=== PATIENT | male | born 1965 | race Two or more races ===

== ENCOUNTER 2017-11-18 15:55 | Inpatient (IN) | payer SELFPAY ==
[2017-11-18] VITALS (14 sets, daily range): BP systolic 110–143; BP diastolic 21–59
[~2017-11-18] VITALS: Ht 165.1 cm; Wt 97.1 kg
[2017-11-18] MEDS ORDERED: Solu-MEDROL 125mg Inj IVP ONE (17:45)
[2017-11-18] MEDS: Ipratropium 0.02% Inh Soln 2.5ml UD HHN SCH ×3 (17:48→18:15)
[2017-11-18] MEDS: Albuterol ud Inhalation HHN SCH ×2 (17:48→18:00)
[2017-11-18] MEDS ORDERED: cefTRIAXone 1 GM in NS 55 ML IVPB ONE (18:00)
[2017-11-18] MEDS ORDERED: Nitroglycerin 50mg/250ml btl 250 ML IV SCH (18:00)
[2017-11-18] MEDS ORDERED: Azithromycin 500 MG in NS 275 ML IV ONE (18:00)
[2017-11-18 18:23] LABS: HEMATOCRIT 17.6 % (42.0-52.0); MEAN CORPUSCULAR VOLUME 80 FL (80-99); PLATELET COUNT 119 K/UL (150-450); RED BLOOD COUNT 2.21 M/UL (4.70-6.10); RED CELL DISTRIBUTION WIDTH 23.5 % (11.6-14.8); WHITE BLOOD COUNT 4.8 K/UL (4.8-10.8)
[2017-11-18 18:24] LABS: HEMOGLOBIN 4.7 G/DL (14.2-18.0)
[2017-11-18] MEDS ORDERED: Azithromycin 500mg Inj IV ONE (18:35)
[2017-11-18 18:38] LABS: ANION GAP 26 mmol/L (5-15); BLOOD UREA NITROGEN 26 mg/dL (7-18); CHLORIDE 103 MMOL/L (98-107); CREATININE 2.4 MG/DL (0.55-1.30); POTASSIUM 3.5 MMOL/L (3.5-5.1); SODIUM 138 MMOL/L (136-145)
[2017-11-18 18:41] LABS: CARBON DIOXIDE 9 MMOL/L (21-32)
[2017-11-18 18:52] LABS: ALANINE AMINOTRANSFERASE 42 U/L (12-78); ALBUMIN 1.9 G/DL (3.4-5.0); ALBUMIN/GLOBULIN RATIO 0.4 (1.0-2.7); ALKALINE PHOSPHATASE 57 U/L (46-116); ASPARTATE AMINO TRANSFERASE 109 U/L (15-37); BILIRUBIN,TOTAL 2.4 MG/DL (0.2-1.0); CKMB 20.2 NG/ML (0.0-3.6); CREATINE KINASE 491 U/L (26-308)
[2017-11-18 18:53] LABS: BILIRUBIN,DIRECT 1.5 MG/DL (0.0-0.3)
[2017-11-18] MEDS ORDERED: Etomidate 40mg/20ml Inj IV ONE (19:45)
[2017-11-18] MEDS ORDERED: Zemuron 50mg/5ml Inj IV ONE (19:45)
--- NOTE | 2017-11-18 19:50 | Emergency Room Report ---
History of Present Illness General Chief Complaint: Dyspnea/Respdistress Source: Patient Present Illness HPI 52-year-old male, no significant past medical history, presents with shortness of breath for the last 3 weeks. Patient is very poor historian, only states that it has been hard to breathe. also states he has intermittent abd pain but also says pain all over. States he sutured a long time ago. Denies having any respiratory issues such as asthma or COPD. No other history able to be obtained denies black or bloody stool. denies vomiting Allergies: Coded Allergies: No Known Allergies (Unverified , 11/18/17) Patient History Past Medical History: see triage record Past Surgical History: none Pertinent Family History: none Reviewed Nursing Documentation: PMH: Agreed, PSxH: Agreed Nursing Documentation-PMH Past Medical History: No Stated History Review of Systems All Other Systems: negative except mentioned in HPI Physical Exam Vital Signs Date Time Temp Pulse Resp B/P (MAP) Pulse Ox O2 Delivery O2 Flow Rate FiO2 11/18/17 17:10 98.2 122 24 120/52 91 Room Air 11/18/17 17:44 100 Sp02 EP Interpretation: reviewed, normal General Appearance: alert, moderate distress, other - poor historian. resp distress, appears pale, Chronically Ill Head: normocephalic, atraumatic Eyes: bilateral eye normal inspection, bilateral eye PERRL, bilateral eye EOMI ENT: normal ENT inspection, normal pharynx, normal voice, moist mucus membranes Neck: normal inspection, full range of motion, supple Respiratory: other - wheezing b/l with coarse b/s. worse L side Cardiovascular #1: tachycardia, edema Cardiovascular #2: 2+ radial (R), 2+ radial (L) Gastrointestinal: normal inspection, non tender, soft, non-distended, no guarding Rectal: other - BROWN stool Musculoskeletal: normal inspection, back normal, normal range of motion, non- tender Neurologic: normal inspection, alert, oriented x3, responsive, motor strength/ tone normal, sensory intact, normal gait, speech normal Psychiatric: normal inspection, judgement/insight normal, memory normal, other - poor historian Skin: warm/dry, well hydrated, normal turgor, pallor Procedures Critical Care Time Critical Care Time 40 minutes of CC time 52-year-old male, severe respiratory distress VS: tachypneic, tachycardic PLAN: IV access, labs, lactate, troponin, Blood/Urine Cx, Abx, IVF, intubation, CT scan of chest abdomen pelvis Anticipate admission to Tele vs. [facility] CC time also includes review of labs, review of EMR, discussion with family and paperwork from SNF, d/w hospitalist CC could include dosing of pressors, additional Abx CC time does not include procedures Intubation Intubation : Consent: Emergent Intubation Method: orotracheal Tube Size (cm): 7.5 Medications: Etomidate, Rocuronium Breath Sounds after Intubation: equal Intubation Complications: no complications Post Intubation Xray: Yes Attempts: One Patient Tolerated: Well Complications: None Medical Decision Making Diagnostic Impression: Primary Impression: Acute respiratory failure with hypoxia Additional Impressions: Lactic acid acidosis Severe anemia Pleural effusion Bilateral pneumonia Severe sepsis ER Course 52-year-old male, shortness of breath the last 3 weeks, appears to be in severe respiratory distress currently DDX: Pneumonia, viral syndrome, asthma or COPD, ACS Plan: Obtain labs, ua, EKG, CXR ER course: Patient continues to be in severe respiratory distress despite being on BiPAP Lactate noted to be 16 - IVF started Hemoglobin noted 4.7. Patient denies having any vomiting, no black or bloody stools. Rectal exam is unremarkable. Transfuse 2 units PRBC starting the emergency room Left-sided whiteout on x-ray, Loculated pleural effusion on ultrasound Chart to perform CT however patient not able to tolerate lying flat Worsening shortness of breath, patient intubated around 7:30 PM Propofol drip started Sepsis Re-examination Time: 9 PM VS: Temp 98 HR 117 BP 118/80 RR 25 CVS tachycardic Respiratory: Coarse breath sounds bilaterally Peripheral pulses: 2+ radial Capillary refill: <2 seconds Skin exam: warm, dry, no rash, not mottled Disposition: Patient is to be admitted to ICU D/W hospitalist Dr Lemus Please note that this Emergency Department Report was dictated using [employer] or barges loader technology software, occasionally this can lead to erroneous entry secondary to interpretation by the dictation equipment. EKG Diagnostic Results EP Interpretation: Yes Rate: Tachycardic Rhythm: NSR ST Segments: T-wave inversions noted in the lateral leads ASA given to patient: No Rhythm Strip EP Interpretation: Yes Rate: 100 Rhythm: NSR, no PVCs, no ectopy Chest X-ray CXR: Ordered: Yes 1 view Indication: sob EP interpretation: Yes Interpretation: white out L lung Impression: L lung pleural effusion Electronically signed by Ember Weinberg MD Laboratory Tests Test 11/18/17 17:25 11/18/17 17:40 11/18/17 20:05 11/18/17 20:40 Arterial Blood pH 7.206 (7.350-7.450) 6.820 (7.350-7.450) Arterial Blood Partial Pressure CO2 23.2 mmHg (35.0-45.0) *L 76.7 mmHg (35.0-45.0) *H Arterial Blood Partial Pressure O2 210.9 mmHg (75.0-100.0) H 75.5 mmHg (75.0-100.0) Arterial Blood HCO3 9.0 mmol/L (22.0-26.0) L 12.2 mmol/L (22.0-26.0) L Arterial Blood Oxygen Saturation 99.4 % (92.0-98.0) H 77.8 % (92.0-98.0) L Arterial Blood Base Excess -17.4 -19.9 Sigifredo Test Positive Positive White Blood Count 4.8 K/UL (4.8-10.8) Red Blood Count 2.21 M/UL (4.70-6.10) L Hemoglobin 4.7 G/DL (14.2-18.0) *L Hematocrit 17.6 % (42.0-52.0) L Mean Corpuscular Volume 80 FL (80-99) Mean Corpuscular Hemoglobin 21.3 PG (27.0-31.0) L Mean Corpuscular Hemoglobin Concent 26.8 G/DL (32.0-36.0) L Red Cell Distribution Width 23.5 % (11.6-14.8) H Platelet Count 119 K/UL (150-450) L Mean Platelet Volume 8.3 FL (6.5-10.1) Neutrophils (%) (Auto) % (45.0-75.0) Lymphocytes (%) (Auto) % (20.0-45.0) Monocytes (%) (Auto) % (1.0-10.0) Eosinophils (%) (Auto) % (0.0-3.0) Basophils (%) (Auto) % (0.0-2.0) Differential Total Cells Counted 100 Neutrophils % (Manual) 39 % (45-75) L Lymphocytes % (Manual) 17 % (20-45) L Monocytes % (Manual) 11 % (1-10) H Eosinophils % (Manual) 0 % (0-3) Basophils % (Manual) 0 % (0-2) Metamyelocytes % 1 % (0-0) H Band Neutrophils 32 % (0-8) H Nucleated Red Blood Cells 28 /100 WBC Platelet Estimate Decreased L Platelet Morphology Normal Polychromasia 1+ Hypochromasia 3+ Anisocytosis 3+ Microcytosis 2+ Prothrombin Time 22.1 SEC (9.30-11.50) H Prothrombin Time INR 2.1 (0.9-1.1) H PTT 46 SEC (23-33) H Sodium Level 138 MMOL/L (136-145) Potassium Level 3.5 MMOL/L (3.5-5.1) Chloride Level 103 MMOL/L (98-107) Carbon Dioxide Level 9 MMOL/L (21-32) *L Anion Gap 26 mmol/L (5-15) H Blood Urea Nitrogen 26 mg/dL (7-18) H Creatinine 2.4 MG/DL (0.55-1.30) H Estimate Glomerular Filtration Rate 28.7 mL/min (>60) Glucose Level 43 MG/DL (74-106) L Lactic Acid Level 16.60 mmol/L (0.66-2.22) H Pending Calcium Level 7.0 MG/DL (8.5-10.1) L Total Bilirubin 2.4 MG/DL (0.2-1.0) H Direct Bilirubin 1.5 MG/DL (0.0-0.3) H Aspartate Amino Transferase (AST) 109 U/L (15-37) H Alanine Aminotransferase (ALT) 42 U/L (12-78) Alkaline Phosphatase 57 U/L (46-116) Total Creatine Kinase 491 U/L (26-308) H Creatine Kinase MB 20.2 NG/ML (0.0-3.6) H Creatine Kinase MB Relative Index 4.1 Troponin I 0.078 ng/mL (0.000-0.056) Pro-B-Type Natriuretic Peptide 37855 pg/mL (0-125) H Total Protein 7.1 G/DL (6.4-8.2) Albumin 1.9 G/DL (3.4-5.0) L Globulin 5.2 g/dL Albumin/Globulin Ratio 0.4 (1.0-2.7) L Triglycerides Level 102 MG/DL (30-150) CT/MRI/US Diagnostic Results CT/MRI/US Diagnostic Results : Imaging Test Ordered: CT Chest abdo pelvis Impression CT CHEST Without Contrast: Evaluation is limited secondary to motion artifact. Diffuse areas of infiltrate and consolidation are seen in the lungs, left greater than right. Small bilateral pleural effusions, right greater than left. Endotracheal tube with tip approximately 3.5 cm above the rossana. Cardiomegaly. Degenerative changes of the thoracic spine. CT ABDOMEN & PELVIS Without Contrast: Evaluation of the colon is limited secondary to poor distention. Some wall thickening is suspected in the colon. Colitis should be considered. Nonspecific infiltration of the mesenteric fat. No evidence for significant bowel loop dilation to suggest an obstructive process. The appendix is questionably visualized in the right lower quadrant and is unremarkable. Small to moderate amount of ascites. No evidence for free intraperitoneal gas. Question of some nodularity of the liver surface which may be related to cirrhosis. Some thickening and nodularity suspected of the adrenal glands. Some increased density in the region of the renal medullary pyramids which may be related to medullary nephrocalcinosis. No evidence for hydronephrosis or ureteral stone. The intra-abdominal organs are otherwise grossly unremarkable for a noncontrast CT. Nonspecific subcutaneous edema and fluid, left greater than right. Degenerative changes of the lumbar spine. Last Vital Signs Date Time Temp Pulse Resp B/P (MAP) Pulse Ox O2 Delivery O2 Flow Rate FiO2 11/18/17 19:00 118 40 100 11/18/17 19:00 98.2 120/52 100 11/18/17 18:05 Facial Disposition: ADMITTED INPATIENT Condition: Critical Referrals: NOT CHOSEN [place]/,REFERRING (PCP) Ember Weinberg M.D. Nov 18, 2017 19:49
[2017-11-18 20:56] LABS: INR 2.1 (0.9-1.1)
[2017-11-18 22:48] LABS: APPEARANCE,URINE VERY CLOUDY; BILIRUBIN, URINE NEGATIVE (NEGATIVE); COLOR,URINE BROWN; GLUCOSE, URINE (UA) NEGATIVE (NEGATIVE); KETONES,URINE 1+ (NEGATIVE); LEUKOCYTE ESTERASE ,URINE 1+ (NEGATIVE); NITRITE,URINE POSITIVE (NEGATIVE); PH,URINE 5 (4.5-8.0); PROTEIN,URINE 3+ (NEGATIVE); UROBILINOGEN,URINE NORMAL MG/DL (0.0-1.0)
[2017-11-18] MEDS ORDERED: Miralax 17gm pkt ORAL PRN (23:00)
[2017-11-18] MEDS ORDERED: Morphine Sulfate 4mg/ml Inj IVP PRN (23:00)
[2017-11-19] VITALS (32 sets, daily range): BP systolic 92–114; BP diastolic 30–46
[2017-11-19] MEDS ORDERED: UNOBMED (01:04)
[2017-11-19] MEDS ORDERED: D5NS 1,000 ML IV SCH (03:15)
[2017-11-19] MEDS ORDERED: Ertapenem 1 GM in NS 55 ML IV SCH ×2 (04:00→08:00)
[2017-11-19 04:25] LABS: HEMATOCRIT 23.7 % (42.0-52.0); MEAN CORPUSCULAR VOLUME 81 FL (80-99); PLATELET COUNT 111 K/UL (150-450); RED BLOOD COUNT 2.92 M/UL (4.70-6.10); RED CELL DISTRIBUTION WIDTH 22.1 % (11.6-14.8); WHITE BLOOD COUNT 5.6 K/UL (4.8-10.8)
[2017-11-19 04:31] LABS: HEMOGLOBIN 6.8 G/DL (14.2-18.0)
[2017-11-19 04:44] LABS: ALANINE AMINOTRANSFERASE 42 U/L (12-78); ALBUMIN 1.6 G/DL (3.4-5.0); ALBUMIN/GLOBULIN RATIO 0.3 (1.0-2.7); ALKALINE PHOSPHATASE 51 U/L (46-116); ANION GAP 18 mmol/L (5-15); ASPARTATE AMINO TRANSFERASE 148 U/L (15-37); BILIRUBIN,DIRECT 1.6 MG/DL (0.0-0.3); BILIRUBIN,TOTAL 2.5 MG/DL (0.2-1.0); BLOOD UREA NITROGEN 29 mg/dL (7-18); CALCIUM 6.7 MG/DL (8.5-10.1); CARBON DIOXIDE 15 MMOL/L (21-32); CHLORIDE 103 MMOL/L (98-107); CREATININE 2.8 MG/DL (0.55-1.30); POTASSIUM 3.8 MMOL/L (3.5-5.1); SODIUM 136 MMOL/L (136-145)
[2017-11-19] MEDS ORDERED: Amikacin 1,000 MG in NS 110 ML IV SCH (05:00)
[2017-11-19] MEDS ORDERED: Amikacin 500mg/2mL Inj ONE ×2 (05:07→05:10)
[2017-11-19] MEDS ORDERED: Sodium Bicarbonate 50ml Carp IV ONE (08:00)
[2017-11-19] MEDS ORDERED: Vancomycin 1.5 GM/D5W 250ML IVPB ONE (08:00)
--- NOTE | 2017-11-19 08:44 | Diagnostic Imaging Report ---
Indication: Shortness of breath Technique: One view of the chest Comparison: none Findings: There is dense consolidation throughout most of the left lung. Patchy and or nodular opacities are also seen in the right upper lobe. There is probably a small amount of pleural fluid on the left. The left heart border is obscured, heart size probably normal Impression: Consolidation of most of the left lung, most likely represents pneumonia. Opacities in the right upper lobe, could represent focal patchy infiltrates there is a soft tissue nodules. Further follow-up recommended
[2017-11-19] MEDS: Pantoprazole Inj IVP SCH (09:00)
[2017-11-19] MEDS: Heparin 5000 units/ml inj SUBQ SCH ×2 (09:00→21:00)
--- NOTE | 2017-11-19 09:02 | Diagnostic Imaging Report ---
Indication: Status post intubation Technique: One view of the chest Comparison: 2 hours earlier Findings: There is increasing dense consolidation of the left lung, with only minimal aerated lung at the left apex now present. Patchy infiltrates in the right lung have also increased markedly in size and extent. Interim endotracheal intubation, endotracheal tube tip in good position approximately 5 cm above the rossana. Impression: Satisfactory endotracheal intubation Rapid progression of pneumonia bilaterally over 2 hours, as described
--- NOTE | 2017-11-19 09:20 | Diagnostic Imaging Report ---
INDICATION: Shortness of breath, pain TECHNIQUE: No oral or IV contrast utilized, reason not stated. Spiral acquisitions obtained through the chest, abdomen, and pelvis. Multiplanar reconstructions were generated. Total dose length product 994.37 mGycm. CTDIvol(s) 14.76 mGy. Radiation dose was minimized using automated exposure control COMPARISON: none FINDINGS Chest: There is dense consolidation of most of the left upper lobe and all of the left lower lobe. The consolidation is the most dense within the lower lobe, where there is probably also a component of atelectasis. There is trace pleural fluid on the left. There is combination of patchy groundglass opacity and dense consolidation involving much of the right upper lobe. There is some atelectasis involving the right middle lobe. There is dense consolidation and atelectasis of the posterior right lower lobe. There is a small to moderate right pleural effusion. There is an endotracheal tube in good position. The heart is borderline enlarged. No pericardial effusion. Prominent but not frankly enlarged mediastinal lymph nodes are demonstrated. No karen hilar or mediastinal mass or adenopathy demonstrated. There is diffuse mild edema of the subcutaneous fat. No axillary or chest wall mass or adenopathy. The bones are unremarkable except for degenerative thoracic spondylosis changes. Abdomen and pelvis: There is diffuse edema of the subcutaneous fat. There is more extensive edema of the mesenteric fat. There is a small amount of ascites fluid. There is equivocal mild wall thickening of the sigmoid, although this is probably artifact of under distention. No evidence of diverticulosis or diverticulitis. The appendix is equivocally demonstrated. No findings to suggest acute appendicitis are evident. No small bowel distention. No free intraperitoneal air. Lack of IV contrast limits assessment of the solid organs. The liver demonstrates possible surface nodularity, suggestive of cirrhotic change. The gallbladder wall is somewhat edematous, but the gallbladder itself is nondistended and there are no gallstones. No biliary ductal dilatation. Pancreas, spleen, adrenals, kidneys are unremarkable. No no mesenteric or retroperitoneal mass or adenopathy. No pelvic mass or adenopathy. The bones are unremarkable except for lower lumbar facet arthrosis Impression: Extensive dense parenchymal infiltrates bilaterally, left greater than right. Component of atelectasis of the lower lobes bilaterally as well. Findings are most suggestive of pneumonia, although pulmonary edema also a possibility Bilateral pleural effusions, right greater than left Cardiomegaly Satisfactory endotracheal intubation Ascites Evidence of anasarca, with, in addition to the ascites and pleural effusions, diffuse edema of the subcutaneous and mesenteric fat. Hepatic surface nodularity suggestive of cirrhosis Equivocal colonic wall thickening. Suspected artifact of under distention or possibly a manifestation of anasarca, but colitis is not excludable Degenerative spondylosis incidentally noted This agrees with the preliminary interpretation provided overnight by [facility]erad[facility] service. The CT scanner at [facility] is accredited by the [employer] and the scans are performed using protocols designed to limit radiation exposure to as low as reasonably achievable to attain images of sufficient resolution adequate for diagnostic evaluation.
--- NOTE | 2017-11-19 09:53 | Consultation ---
Consult Note Consult Note asked to eval for renal failure 52-year-old male, no significant past medical history, presents with shortness of breath for the last 3 weeks. Patient is very poor historian, only states that it has been hard to breathe. also states he has intermittent abd pain but also says pain all over. States he sutured a long time ago. Denies having any respiratory issues such as asthma or COPD. No other history able to be obtained denies black or bloody stool. denies vomiting Assessment/Plan Acute renal failure ? due to sepsis Acute respiratory failure with hypoxia Lactic acid acidosis Severe anemia Pleural effusion Bilateral pneumonia Severe sepsis Severe HypoAlbuminemai , 3+ Proteinuria Plaan: Hydrate Monitor renal parameters Avoid nephrotoxics as possible hemodynamic support cortisol level per orders SHERRY OLVERA Nov 19, 2017 09:53
--- NOTE | 2017-11-19 10:57 | Pulmonolgy Critical Care Note ---
Critical Care - Asmt/Plan Problems: (1) Acute respiratory failure with hypoxia (2) Severe sepsis (3) Severe anemia Respiratory: monitor respiratory rate, adjust FIO2 Cardiac: continue to monitor HR/BP Renal: F/U I&O, keep IV fluid Infectious Disease: check cultures, continue antibiotics Gastrointestinal: hold feedings Endocrine: monitor blood sugar Hematologic: monitor H/H Neurologic: PRN Ativan Affect: PRN ativan Prophylaxis: Heparin Disposition: keep in ICU Discussed with: nurses, consultants, case managerscentral supply manager - Objective Last 24 Hour Vital Signs Date Time Temp Pulse Resp B/P (MAP) Pulse Ox O2 Delivery O2 Flow Rate FiO2 11/19/17 10:31 113 32 100 11/19/17 10:00 108 26 98/35 90 Mechanical Ventilator 100 11/19/17 10:00 22 11/19/17 09:30 98.9 108 26 105/37 85 Mechanical Ventilator 100 11/19/17 09:07 107 28 100 11/19/17 09:00 22 11/19/17 09:00 108 26 103/34 90 Mechanical Ventilator 100 11/19/17 08:30 109 26 106/35 91 Mechanical Ventilator 100 11/19/17 08:00 20 11/19/17 08:00 99.0 105 28 114/42 90 Mechanical Ventilator 100 11/19/17 07:16 111 25 100 11/19/17 07:00 22 11/19/17 07:00 113 26 96/33 89 Mechanical Ventilator 100 11/19/17 06:00 111 22 103/32 91 Mechanical Ventilator 100 11/19/17 06:00 22 11/19/17 05:43 112 22 100 11/19/17 05:30 112 22 113/39 93 Mechanical Ventilator 100 11/19/17 05:21 100 11/19/17 05:00 22 11/19/17 05:00 98.1 113 22 105/38 92 Mechanical Ventilator 100 11/19/17 04:35 98.2 117 22 103/39 92 Mechanical Ventilator 100 11/19/17 04:30 113 11/19/17 04:30 117 22 103/39 92 Mechanical Ventilator 100 11/19/17 04:30 22 11/19/17 04:00 98.2 115 22 106/46 91 Mechanical Ventilator 100 11/19/17 04:00 22 11/19/17 03:30 22 11/19/17 03:29 116 22 106/42 91 Mechanical Ventilator 100 11/19/17 03:10 117 22 100 11/19/17 03:00 117 22 106/43 91 Mechanical Ventilator 100 11/19/17 03:00 22 11/19/17 02:30 115 22 96/46 91 Mechanical Ventilator 100 11/19/17 02:30 22 11/19/17 02:00 22 11/19/17 02:00 115 22 102/31 91 Mechanical Ventilator 100 11/19/17 01:45 116 22 96/30 92 Mechanical Ventilator 100 11/19/17 01:30 22 11/19/17 01:15 118 22 100/31 93 Mechanical Ventilator 100 11/19/17 01:12 118 22 100 11/19/17 01:00 22 11/19/17 00:45 117 22 109/32 93 Mechanical Ventilator 100 11/19/17 00:30 22 11/19/17 00:15 97.8 117 22 112/37 94 Mechanical Ventilator 11/19/17 00:00 22 11/19/17 00:00 118 22 106/30 94 Mechanical Ventilator 11/18/17 23:45 120 22 110/31 94 Mechanical Ventilator 11/18/17 23:30 118 22 110/29 93 Mechanical Ventilator 11/18/17 23:30 22 11/18/17 23:15 97.6 118 22 114/36 95 Mechanical Ventilator 11/18/17 23:00 115 22 117/21 94 Mechanical Ventilator 11/18/17 23:00 22 11/18/17 22:55 97.6 115 22 11/18/17 22:35 116 22 100 11/18/17 22:30 22 11/18/17 22:30 97.6 117 22 134/51 95 Mechanical Ventilator 11/18/17 22:25 100 11/18/17 22:15 116 22 134/51 95 Mechanical Ventilator 11/18/17 22:00 115 22 121/52 87 Mechanical Ventilator 11/18/17 22:00 22 11/18/17 21:30 20 11/18/17 21:30 98.2 116 18 122/53 92 Mechanical Ventilator 11/18/17 21:15 116 18 126/51 91 Mechanical Ventilator 11/18/17 21:05 98.5 116 16 11/18/17 21:00 98.5 116 16 126/49 91 Mechanical Ventilator 11/18/17 20:57 20 11/18/17 20:51 115 18 100 11/18/17 20:50 100 11/18/17 20:42 20 11/18/17 20:30 116 18 120/59 90 Mechanical Ventilator 11/18/17 20:27 16 11/18/17 20:15 121 16 137/50 94 Mechanical Ventilator 11/18/17 20:12 16 11/18/17 20:00 123 16 143/53 86 Mechanical Ventilator 11/18/17 19:57 16 11/18/17 19:49 125 16 100 11/18/17 19:45 16 11/18/17 19:35 100 11/18/17 19:00 118 40 100 11/18/17 19:00 98.2 118 40 120/52 100 100 11/18/17 18:05 118 40 100 Facial 100 11/18/17 18:00 118 37 100 Bi-pap 100 11/18/17 17:44 100 11/18/17 17:44 115 35 100 Bi-pap 100 11/18/17 17:10 98.2 122 24 120/52 91 Room Air Status: sedated Condition: critical HEENT: atraumatic Neck: full ROM Heart: HR/BP stable Abdomen: soft, active bowel sounds Accucheck: 100 Critical Care - Subjective ROS Limited/Unobtainable: Yes ICU Day: 2 Intubation Day: 2 Condition: critical EKG Rhythm: Sinus Rhythm FI02: 100 Vent Support Breath Rate: 20 Vent Support Mode: AC Vent Tidal Volume: 700 Sputum Amount: Small PEEP: 7.0 PIP: 39 Drips: propofol drip I&O: Intake and Output 11/18/17 11/19/17 19:00 07:00 Intake Total 0 ml 520.531 ml Output Total 165 ml Balance 0 ml 355.531 ml Intake Oral 0 ml IV Total 520.531 ml Output Urine Total 165 ml CXR: Et in good position ET-Tube: 7.5 ET Position: 21 Labs: Laboratory Tests Test 11/18/17 17:25 11/18/17 17:40 11/18/17 20:05 11/18/17 20:40 Arterial Blood pH 7.206 (7.350-7.450) 6.820 (7.350-7.450) Arterial Blood Partial Pressure CO2 23.2 mmHg (35.0-45.0) *L 76.7 mmHg (35.0-45.0) *H Arterial Blood Partial Pressure O2 210.9 mmHg (75.0-100.0) H 75.5 mmHg (75.0-100.0) Arterial Blood HCO3 9.0 mmol/L (22.0-26.0) L 12.2 mmol/L (22.0-26.0) L Arterial Blood Oxygen Saturation 99.4 % (92.0-98.0) H 77.8 % (92.0-98.0) L Arterial Blood Base Excess -17.4 -19.9 Sigifredo Test Positive Positive White Blood Count 4.8 K/UL (4.8-10.8) Red Blood Count 2.21 M/UL (4.70-6.10) L Hemoglobin 4.7 G/DL (14.2-18.0) *L Hematocrit 17.6 % (42.0-52.0) L Mean Corpuscular Volume 80 FL (80-99) Mean Corpuscular Hemoglobin 21.3 PG (27.0-31.0) L Mean Corpuscular Hemoglobin Concent 26.8 G/DL (32.0-36.0) L Red Cell Distribution Width 23.5 % (11.6-14.8) H Platelet Count 119 K/UL (150-450) L Mean Platelet Volume 8.3 FL (6.5-10.1) Neutrophils (%) (Auto) % (45.0-75.0) Lymphocytes (%) (Auto) % (20.0-45.0) Monocytes (%) (Auto) % (1.0-10.0) Eosinophils (%) (Auto) % (0.0-3.0) Basophils (%) (Auto) % (0.0-2.0) Differential Total Cells Counted 100 Neutrophils % (Manual) 39 % (45-75) L Lymphocytes % (Manual) 17 % (20-45) L Monocytes % (Manual) 11 % (1-10) H Eosinophils % (Manual) 0 % (0-3) Basophils % (Manual) 0 % (0-2) Metamyelocytes % 1 % (0-0) H Band Neutrophils 32 % (0-8) H Nucleated Red Blood Cells 28 /100 WBC Platelet Estimate Decreased L Platelet Morphology Normal Polychromasia 1+ Hypochromasia 3+ Anisocytosis 3+ Microcytosis 2+ Prothrombin Time 22.1 SEC (9.30-11.50) H Prothromb Time International Ratio 2.1 (0.9-1.1) H Activated Partial Thromboplast Time 46 SEC (23-33) H Sodium Level 138 MMOL/L (136-145) Potassium Level 3.5 MMOL/L (3.5-5.1) Chloride Level 103 MMOL/L (98-107) Carbon Dioxide Level 9 MMOL/L (21-32) *L Anion Gap 26 mmol/L (5-15) H Blood Urea Nitrogen 26 mg/dL (7-18) H Creatinine 2.4 MG/DL (0.55-1.30) H Estimat Glomerular Filtration Rate 28.7 mL/min (>60) Glucose Level 43 MG/DL (74-106) L Lactic Acid Level 16.60 mmol/L (0.66-2.22) H 15.20 mmol/L (0.66-2.22) H Calcium Level 7.0 MG/DL (8.5-10.1) L Total Bilirubin 2.4 MG/DL (0.2-1.0) H Direct Bilirubin 1.5 MG/DL (0.0-0.3) H Aspartate Amino Transf (AST/SGOT) 109 U/L (15-37) H Alanine Aminotransferase (ALT/SGPT) 42 U/L (12-78) Alkaline Phosphatase 57 U/L (46-116) Total Creatine Kinase 491 U/L (26-308) H Creatine Kinase MB 20.2 NG/ML (0.0-3.6) H Creatine Kinase MB Relative Index 4.1 Troponin I 0.078 ng/mL (0.000-0.056) Pro-B-Type Natriuretic Peptide 33330 pg/mL (0-125) H Total Protein 7.1 G/DL (6.4-8.2) Albumin 1.9 G/DL (3.4-5.0) L Globulin 5.2 g/dL Albumin/Globulin Ratio 0.4 (1.0-2.7) L Triglycerides Level 102 MG/DL (30-150) Test 11/18/17 21:51 11/18/17 22:11 11/19/17 04:12 11/19/17 05:34 Urine Color Brown Urine Appearance Very cloudy Urine pH 5 (4.5-8.0) Urine Specific [place] 1.030 (1.005-1.035) Urine Protein 3+ (NEGATIVE) H Urine Glucose (UA) Negative (NEGATIVE) Urine Ketones 1+ (NEGATIVE) H Urine Occult Blood 3+ (NEGATIVE) H Urine Nitrite Positive (NEGATIVE) H Urine Bilirubin Negative (NEGATIVE) Urine Urobilinogen Normal MG/DL (0.0-1.0) Urine Leukocyte Esterase 1+ (NEGATIVE) H Urine RBC 2-4 /HPF (0 - 0) H Urine WBC 2-4 /HPF (0 - 0) Urine Squamous Epithelial Cells Occasional /LPF Urine Amorphous Sediment Many /LPF (NONE) H Urine Bacteria Many /HPF (NONE) H Arterial Blood pH 6.888 (7.350-7.450) 6.970 (7.350-7.450) Arterial Blood Partial Pressure CO2 70.0 mmHg (35.0-45.0) *H 60.6 mmHg (35.0-45.0) *H Arterial Blood Partial Pressure O2 70.3 mmHg (75.0-100.0) L 57.3 mmHg (75.0-100.0) L Arterial Blood HCO3 13.0 mmol/L (22.0-26.0) L 13.6 mmol/L (22.0-26.0) L Arterial Blood Oxygen Saturation 80.9 % (92.0-98.0) L 81.0 % (92.0-98.0) L Arterial Blood Base Excess -18.5 -17.1 Sigifredo Test Positive Positive White Blood Count 5.6 K/UL (4.8-10.8) Red Blood Count 2.92 M/UL (4.70-6.10) L Hemoglobin 6.8 G/DL (14.2-18.0) Hematocrit 23.7 % (42.0-52.0) #L Mean Corpuscular Volume 81 FL (80-99) Mean Corpuscular Hemoglobin 23.2 PG (27.0-31.0) L Mean Corpuscular Hemoglobin Concent 28.6 G/DL (32.0-36.0) L Red Cell Distribution Width 22.1 % (11.6-14.8) H Platelet Count 111 K/UL (150-450) L Mean Platelet Volume 9.1 FL (6.5-10.1) Neutrophils (%) (Auto) % (45.0-75.0) Lymphocytes (%) (Auto) % (20.0-45.0) Monocytes (%) (Auto) % (1.0-10.0) Eosinophils (%) (Auto) % (0.0-3.0) Basophils (%) (Auto) % (0.0-2.0) Sodium Level 136 MMOL/L (136-145) Potassium Level 3.8 MMOL/L (3.5-5.1) Chloride Level 103 MMOL/L (98-107) Carbon Dioxide Level 15 MMOL/L (21-32) L Anion Gap 18 mmol/L (5-15) H Blood Urea Nitrogen 29 mg/dL (7-18) H Creatinine 2.8 MG/DL (0.55-1.30) H Estimat Glomerular Filtration Rate 24.0 mL/min (>60) Glucose Level 101 MG/DL (74-106) Calcium Level 6.7 MG/DL (8.5-10.1) L Total Bilirubin 2.5 MG/DL (0.2-1.0) H Direct Bilirubin 1.6 MG/DL (0.0-0.3) H Aspartate Amino Transf (AST/SGOT) 148 U/L (15-37) H Alanine Aminotransferase (ALT/SGPT) 42 U/L (12-78) Alkaline Phosphatase 51 U/L (46-116) Total Protein 6.7 G/DL (6.4-8.2) Albumin 1.6 G/DL (3.4-5.0) L Globulin 5.1 g/dL Albumin/Globulin Ratio 0.3 (1.0-2.7) L ASA DEL CID Nov 19, 2017 10:57
[2017-11-19] MEDS: LORazepam Inj 2mg/ml 1ml IV PRN (11:08)
[2017-11-19] MEDS ORDERED: Phytonadione 10 MG in D5W 55 ML IVPB ONE (12:00)
[2017-11-19] MEDS ORDERED: Zemuron 50mg/5ml Inj IV ONE (15:22)
[2017-11-19] MEDS ORDERED: Etomidate 40mg/20ml Inj IV ONE (15:22)
[2017-11-19 16:17] LABS: HEMATOCRIT 24.9 % (42.0-52.0); HEMOGLOBIN 7.1 G/DL (14.2-18.0); MEAN CORPUSCULAR VOLUME 83 FL (80-99); PLATELET COUNT 82 K/UL (150-450); RED BLOOD COUNT 3.01 M/UL (4.70-6.10); RED CELL DISTRIBUTION WIDTH 21.5 % (11.6-14.8); WHITE BLOOD COUNT 4.1 K/UL (4.8-10.8)
[2017-11-19 16:20] LABS: INR 2.2 (0.9-1.1)
[2017-11-19 16:26] LABS: LACTATE DEHYDROGENASE 597 U/L (81-234)
[2017-11-19 17:33] LABS: % IRON SATURATION 11 % (15-50); IRON 20 ug/dL (50-175); TOTAL IRON BINDING CAPACITY 179 ug/dL (250-450)
[2017-11-19] MEDS ORDERED: Acetaminophen 650 MG SUPP RECTAL PRN (20:15)
[2017-11-20] VITALS (25 sets, daily range): BP systolic 88–117; BP diastolic 36–66
--- NOTE | 2017-11-20 | History and Physical Report ---
DATE OF ADMISSION: 11/18/2017 CONSULTANTS: 1. Herve Betts M.D. 2. Dr. Hidalgo. CHIEF COMPLAINT: Respiratory failure, hypoxia, pneumonia, pleural effusion, and anemia. BRIEF HISTORY: A 52-year-old male, who presents to [facility] with above-mentioned diagnosis, admitted to ICU. Currently intubated, sedated, lethargic in ICU. Therefore, history obtained from chart. PAST MEDICAL HISTORY: Unknown. PAST SURGICAL HISTORY: Unknown. MEDICATIONS: Include vancomycin, heparin, Protonix, amikacin, albuterol, morphine, Lorazepam, norepinephrine, and propofol. ALLERGIES: Denies. SOCIAL HISTORY: Unable to obtain. REVIEW OF SYSTEMS: Unavailable. PHYSICAL EXAMINATION: GENERAL: Calm, intubated, sedated, lethargic in ICU, nonverbal. VITAL SIGNS: Showed temperature is 100.3, pulse 114, respirations 26, and blood pressure 104/38. CARDIOVASCULAR: No murmur. LUNGS: Poor air exchange. ABDOMEN: Bowel sounds distant. EXTREMITIES: No cyanosis, clubbing, or edema. NEUROLOGIC: The patient is flaccid in bed, not responding to verbal commands. LABORATORY AND DIAGNOSTIC DATA: Show initial hemoglobin 4.7, now is 6.8/23, and platelets 111,000. Bicarbonate 18. BUN and creatinine 29/2.8. INR is 3.1. PTT is 46. Urinalysis, 1+ ketone and positive nitrite. ASSESSMENT: 1. Respiratory failure. 2. Urinary tract infection. 3. Hypoxia. 4. Pneumonia. 5. Pleural effusion. 6. Anemia. PLAN: Continue premedications, then perform antibiotics per Infectious Disease. Blood pressure control. Nephrology consult, Dr. Sylvester. Prognosis is poor. We will continue to follow this patient. Nehemiah Lemus D.O. DR: Td JOB#: [id number] CC:
[2017-11-20] MEDS: LORazepam Inj 2mg/ml 1ml IV PRN (03:42)
[2017-11-20 07:14] LABS: HEMATOCRIT 21.7 % (42.0-52.0); HEMOGLOBIN 7.2 G/DL (14.2-18.0); MEAN CORPUSCULAR VOLUME 79 FL (80-99); PLATELET COUNT 64 K/UL (150-450); RED BLOOD COUNT 2.75 M/UL (4.70-6.10); RED CELL DISTRIBUTION WIDTH 21.2 % (11.6-14.8); WHITE BLOOD COUNT 8.5 K/UL (4.8-10.8)
[2017-11-20 07:40] LABS: CREATINE KINASE 296 U/L (26-308); GAMMA GLUTAMYL TRANSPEPTIDASE 58 U/L (5-85)
[2017-11-20] MEDS ORDERED: Vancomycin 1 GM in D5W 275 ML IVPB SCH (08:00)
[2017-11-20 08:05] LABS: AMMONIA 23 umol/L (11-32)
--- NOTE | 2017-11-20 08:40 | Diagnostic Imaging Report ---
Indication: Status post nasogastric tube placement Technique: One view of the upper abdomen Comparison: none Findings: There is a nasogastric tube in place, tip projected at the level of the gastric antrum, in good position. Extensive dense consolidation is seen in the left lung. There is a paucity of bowel gas Impression: Satisfactory position of nasogastric tube. This agrees with the preliminary interpretation provided overnight by [facility] teleradiology service.
[2017-11-20 08:48] LABS: ALANINE AMINOTRANSFERASE 87 U/L (12-78); ALBUMIN 1.3 G/DL (3.4-5.0); ALBUMIN/GLOBULIN RATIO 0.3 (1.0-2.7); ALKALINE PHOSPHATASE 40 U/L (46-116); ANION GAP 15 mmol/L (5-15); ASPARTATE AMINO TRANSFERASE 438 U/L (15-37); BILIRUBIN,TOTAL 3.9 MG/DL (0.2-1.0); BLOOD UREA NITROGEN 45 mg/dL (7-18); CALCIUM 6.4 MG/DL (8.5-10.1); CARBON DIOXIDE 16 MMOL/L (21-32); CHLORIDE 109 MMOL/L (98-107); CHOLESTEROL 85 MG/DL (< 200); CREATININE 4.3 MG/DL (0.55-1.30); HDL CHOLESTEROL 18 MG/DL (40-60); PHOSPHORUS 5.6 MG/DL (2.5-4.9); POTASSIUM 4.3 MMOL/L (3.5-5.1); SODIUM 140 MMOL/L (136-145); TRIGLYCERIDES 89 MG/DL (30-150)
[2017-11-20] MEDS: Pantoprazole Inj IVP SCH (08:49)
[2017-11-20] MEDS: Heparin 5000 units/ml inj SUBQ SCH (08:50)
[2017-11-20 09:10] LABS: BILIRUBIN,DIRECT 2.9 MG/DL (0.0-0.3)
[2017-11-20] MEDS ORDERED: Amikacin Rx to dose MISC PRN (09:15)
--- NOTE | 2017-11-20 11:37 | Pulmonolgy Critical Care Note ---
Critical Care - Asmt/Plan Problems: (1) Acute respiratory failure with hypoxia (2) Severe sepsis (3) Severe anemia Respiratory: monitor respiratory rate, adjust FIO2, CXR Cardiac: continue to monitor HR/BP Renal: F/U I&O, keep IV fluid, other - chagne IV fluid to d5 NS Infectious Disease: check cultures, continue antibiotics Gastrointestinal: hold feedings Endocrine: monitor blood sugar Neurologic: PRN Ativan, PRN Morphine, keep patient comfortable Affect: PRN ativan Time Spent (Minutes): 40 Notes Reviewed: frame aligner Discussed with: nurses, consultants, registered nurse hh case managerengineering program manager - Objective Last 24 Hour Vital Signs Date Time Temp Pulse Resp B/P (MAP) Pulse Ox O2 Delivery O2 Flow Rate FiO2 11/20/17 10:00 102.2 121 36 92/43 85 Mechanical Ventilator 100 11/20/17 09:38 119 37 100 11/20/17 09:00 102.2 119 33 88/39 86 Mechanical Ventilator 100 11/20/17 08:00 100 11/20/17 08:00 99.4 118 32 91/40 91 Mechanical Ventilator 100 11/20/17 08:00 118 11/20/17 07:29 118 37 100 11/20/17 07:00 116 39 98/41 87 Mechanical Ventilator 100 11/20/17 06:00 114 39 94/40 88 Mechanical Ventilator 100 11/20/17 05:00 115 25 91/36 88 Mechanical Ventilator 100 11/20/17 04:59 109 35 100 11/20/17 04:02 99.5 114 31 100/36 93 Mechanical Ventilator 100 11/20/17 04:00 115 11/20/17 04:00 100 11/20/17 03:43 115 37 100 11/20/17 03:00 105 29 100/36 93 Mechanical Ventilator 100 11/20/17 02:00 113 35 95/38 93 Mechanical Ventilator 100 11/20/17 01:15 113 35 100 11/20/17 01:00 111 36 91/50 92 Mechanical Ventilator 100 11/20/17 00:00 99.8 111 38 91/36 91 Mechanical Ventilator 100 11/20/17 00:00 111 11/20/17 00:00 100 11/19/17 23:00 112 37 92/46 91 Mechanical Ventilator 100 11/19/17 23:00 92/46 1/4/18 22:45 112 31 100 11/19/17 22:00 114 37 98/38 92 Mechanical Ventilator 100 11/19/17 21:25 115 32 100 11/19/17 21:00 117 26 95/37 94 Mechanical Ventilator 100 11/19/17 20:50 100.0 11/19/17 20:00 100.0 119 27 96/38 92 Mechanical Ventilator 100 11/19/17 20:00 113 11/19/17 20:00 100 11/19/17 19:39 118 32 100 11/19/17 19:00 100.7 116 22 100/42 98 Mechanical Ventilator 100 11/19/17 18:00 100.3 116 21 99/40 98 Mechanical Ventilator 100 11/19/17 17:31 115 35 100 11/19/17 17:00 100.1 115 26 98/44 97 Mechanical Ventilator 100 11/19/17 16:00 100 11/19/17 16:00 116 11/19/17 15:09 116 35 100 11/19/17 15:01 117 35 100 11/19/17 15:00 100.2 116 26 104/43 97 Mechanical Ventilator 100 11/19/17 14:00 100.3 114 26 104/38 97 Mechanical Ventilator 100 11/19/17 13:21 112 32 100 11/19/17 13:00 99.4 112 26 101/36 95 Mechanical Ventilator 100 11/19/17 12:00 99.1 112 26 100/43 97 Mechanical Ventilator 100 11/19/17 12:00 100 11/19/17 12:00 113 Status: awake Condition: critical HEENT: atraumatic, normocephalic Neck: full ROM Lungs: chest wall tender Heart: HR/BP unstable Abdomen: soft, non-tender, feeding tube Extremities: edema Decubiti: location Micro: Microbiology Date/Time Source Procedure Growth Status 11/18/17 17:50 Blood Blood Culture - Preliminary Streptococcus Species Resulted 11/18/17 17:40 Blood Blood Culture - Preliminary Streptococcus Species Resulted 11/18/17 21:51 Urine,Clean Catch Urine Culture - Preliminary NO GROWTH AFTER 24 HOURS Resulted Accucheck: 100 Critical Care - Subjective ROS Limited/Unobtainable: Yes Condition: critical EKG Rhythm: Sinus Bradycardia FI02: 100 Vent Support Breath Rate: 20 Vent Support Mode: AC Vent Tidal Volume: 700 Sputum Amount: Large PEEP: 7.0 PIP: 39 Fluids: NS 75 cc/hour Drips: none I&O: Intake and Output 11/19/17 11/20/17 19:00 07:00 Intake Total 356.531 ml 1450 ml Output Total 590 ml 110 ml Balance -233.469 ml 1340 ml IV Total 106.531 ml 1200 ml Blood Product 250 ml 250 ml Output Urine Total 110 ml 100 ml Gastric Drainage Total 480 ml 10 ml CXR: improved ET-Tube: 7.5 ET Position: 21 Labs: Laboratory Tests Test 11/19/17 15:45 11/19/17 18:10 11/19/17 20:10 11/20/17 05:00 White Blood Count 4.1 K/UL (4.8-10.8) L 8.5 K/UL (4.8-10.8) # Red Blood Count 3.01 M/UL (4.70-6.10) L 2.75 M/UL (4.70-6.10) L Hemoglobin 7.1 G/DL (14.2-18.0) L 7.2 G/DL (14.2-18.0) L Hematocrit 24.9 % (42.0-52.0) L 21.7 % (42.0-52.0) L Mean Corpuscular Volume 83 FL (80-99) 79 FL (80-99) L Mean Corpuscular Hemoglobin 23.5 PG (27.0-31.0) L 26.2 PG (27.0-31.0) L Mean Corpuscular Hemoglobin Concent 28.5 G/DL (32.0-36.0) L 33.1 G/DL (32.0-36.0) Red Cell Distribution Width 21.5 % (11.6-14.8) H 21.2 % (11.6-14.8) H Platelet Count 82 K/UL (150-450) L 64 K/UL (150-450) L Mean Platelet Volume 9.8 FL (6.5-10.1) 7.8 FL (6.5-10.1) Neutrophils (%) (Auto) % (45.0-75.0) % (45.0-75.0) Lymphocytes (%) (Auto) % (20.0-45.0) % (20.0-45.0) Monocytes (%) (Auto) % (1.0-10.0) % (1.0-10.0) Eosinophils (%) (Auto) % (0.0-3.0) % (0.0-3.0) Basophils (%) (Auto) % (0.0-2.0) % (0.0-2.0) Differential Total Cells Counted 100 100 Neutrophils % (Manual) 48 % (45-75) 61 % (45-75) Lymphocytes % (Manual) 18 % (20-45) L 12 % (20-45) L Monocytes % (Manual) 20 % (1-10) H 15 % (1-10) H Eosinophils % (Manual) 1 % (0-3) 0 % (0-3) Basophils % (Manual) 0 % (0-2) 0 % (0-2) Metamyelocytes % 1 % (0-0) H Band Neutrophils 12 % (0-8) H 12 % (0-8) H Nucleated Red Blood Cells 105 /100 WBC 20 /100 WBC Platelet Estimate Decreased L Decreased L Platelet Morphology Normal Normal Polychromasia 2+ Hypochromasia 2+ 1+ Anisocytosis 3+ 2+ Microcytosis 1+ 1+ Erythrocyte Sedimentation Rate 60 MM/HR (0-20) H Reticulocyte Count 1.5 % (0.0-2.0) Prothrombin Time 23.7 SEC (9.30-11.50) H Prothromb Time International Ratio 2.2 (0.9-1.1) H Activated Partial Thromboplast Time 52 SEC (23-33) H Lactic Acid Level 11.00 mmol/L (0.66-2.22) H 9.60 mmol/L (0.66-2.22) H 6.30 mmol/L (0.66-2.22) H Iron Level 20 ug/dL (50-175) L Total Iron Binding Capacity 179 ug/dL (250-450) L Percent Iron Saturation 11 % (15-50) L Unsaturated Iron Binding 159 ug/dL (112-346) Lactate Dehydrogenase 597 U/L (81-234) H Vitamin B12 Level > 2000 PG/ML (193-986) H Folate 10.7 NG/ML (8.6-58.9) Random Amikacin Level 20.2 MG/L Target Cells Occasional Sodium Level 140 MMOL/L (136-145) Potassium Level 4.3 MMOL/L (3.5-5.1) Chloride Level 109 MMOL/L (98-107) H Carbon Dioxide Level 16 MMOL/L (21-32) L Anion Gap 15 mmol/L (5-15) Blood Urea Nitrogen 45 mg/dL (7-18) H Creatinine 4.3 MG/DL (0.55-1.30) #H Estimat Glomerular Filtration Rate 14.6 mL/min (>60) Glucose Level 22 MG/DL (74-106) *L Hemoglobin A1c 5.5 % (4.3-6.0) Uric Acid 6.9 MG/DL (2.6-7.2) Calcium Level 6.4 MG/DL (8.5-10.1) L Phosphorus Level 5.6 MG/DL (2.5-4.9) H Magnesium Level 1.9 MG/DL (1.8-2.4) Total Bilirubin 3.9 MG/DL (0.2-1.0) H Direct Bilirubin 2.9 MG/DL (0.0-0.3) H Gamma Glutamyl Transpeptidase 58 U/L (5-85) Aspartate Amino Transf (AST/SGOT) 438 U/L (15-37) H Alanine Aminotransferase (ALT/SGPT) 87 U/L (12-78) H Alkaline Phosphatase 40 U/L (46-116) L Ammonia 23 umol/L (11-32) Total Creatine Kinase 296 U/L (26-308) Troponin I 1.011 ng/mL (0.000-0.056) C-Reactive Protein, Quantitative 9.8 mg/dL (0.00-0.90) H Pro-B-Type Natriuretic Peptide 33685 pg/mL (0-125) H Total Protein 5.6 G/DL (6.4-8.2) L Albumin 1.3 G/DL (3.4-5.0) L Globulin 4.3 g/dL Albumin/Globulin Ratio 0.3 (1.0-2.7) L Triglycerides Level 89 MG/DL (30-150) Cholesterol Level 85 MG/DL (< 200) LDL Cholesterol 29 mg/dL (<100) HDL Cholesterol 18 MG/DL (40-60) L Cholesterol/HDL Ratio 4.7 (3.3-4.4) H Thyroid Stimulating Hormone (TSH) 0.134 uiU/mL (0.358-3.740) Test 11/20/17 06:08 11/20/17 07:40 11/20/17 10:35 Troponin I 0.880 ng/mL (0.000-0.056) Arterial Blood pH 7.336 (7.350-7.450) Arterial Blood Partial Pressure CO2 33.0 mmHg (35.0-45.0) L Arterial Blood Partial Pressure O2 46.0 mmHg (75.0-100.0) Arterial Blood HCO3 17.2 mmol/L (22.0-26.0) L Arterial Blood Oxygen Saturation 75.8 % (92.0-98.0) L Arterial Blood Base Excess -7.8 Sigifredo Test Positive Random Vancomycin Level Pending ASA DEL CID Nov 20, 2017 11:37
[2017-11-20] MEDS: D5 1/2NS 1,000 ML IV SCH (11:45)
--- NOTE | 2017-11-20 12:01 | Diagnostic Imaging Report ---
Indication: Reason For Exam: [id number] Technique: One view of the chest Comparison: 11/18/2017 Findings: Interim marked improvement of previously demonstrated left lung consolidation, although considerable and extensive disease persists. Parenchymal disease in the right lung appears less densely consolidated but slightly more diffuse. Stable satisfactory positions of endotracheal and nasogastric tube. Left-sided pleural effusion is evident. Right pleural space grossly clear Impression: Markedly improved but still extensive left lung parenchymal disease, over 2 days Consolidation in the right lung appears less focally dense but more widespread than previously. Left pleural effusion Other findings as noted
[2017-11-20] MEDS: Cefepime 1gm/D5W 55ml IVPB SCH ×2 (13:02)
--- NOTE | 2017-11-20 14:40 | General Progress Note ---
Assessment/Plan Problem List: (1) Pleural effusion ICD Codes: J90 - Pleural effusion, not elsewhere classified SNOMED: 03164136, 369232943 (2) Lactic acid acidosis ICD Codes: E87.2 - Acidosis SNOMED: 68140362, 074196858 (3) Bilateral pneumonia ICD Codes: J18.9 - Pneumonia, unspecified organism SNOMED: 073241600 (4) Acute respiratory failure with hypoxia ICD Codes: J96.01 - Acute respiratory failure with hypoxia SNOMED: 75131573, 996427127 (5) Severe anemia ICD Codes: D64.9 - Anemia, unspecified SNOMED: 832434281, 286454480 (6) Severe sepsis ICD Codes: A41.9 - Sepsis, unspecified organism; R65.20 - Severe sepsis without septic shock SNOMED: 29096009 Status: unchanged Assessment/Plan vent abx neph f/u bp control cbc bmp in am Subjective Constitutional: Reports: weakness Allergies: Coded Allergies: No Known Allergies (Unverified , 11/18/17) All Systems: reviewed and negative except above Subjective intub sedated in icu Objective Last 24 Hour Vital Signs Date Time Temp Pulse Resp B/P (MAP) Pulse Ox O2 Delivery O2 Flow Rate FiO2 11/20/17 13:04 112 41 100 11/20/17 13:00 98.6 11 37 102/51 91 Mechanical Ventilator 100 11/20/17 12:00 100 11/20/17 12:00 120 11/20/17 12:00 101.8 117 49 102/51 97 Mechanical Ventilator 100 11/20/17 11:31 120 43 100 11/20/17 11:00 101.8 121 41 102/51 80 Mechanical Ventilator 100 11/20/17 10:00 102.2 121 36 92/43 85 Mechanical Ventilator 100 11/20/17 09:38 119 37 100 11/20/17 09:00 102.2 119 33 88/39 86 Mechanical Ventilator 100 11/20/17 08:00 100 11/20/17 08:00 99.4 118 32 91/40 91 Mechanical Ventilator 100 11/20/17 08:00 118 11/20/17 07:29 118 37 100 11/20/17 07:00 116 39 98/41 87 Mechanical Ventilator 100 11/20/17 06:00 114 39 94/40 88 Mechanical Ventilator 100 11/20/17 05:00 115 25 91/36 88 Mechanical Ventilator 100 11/20/17 04:59 109 35 100 11/20/17 04:02 99.5 114 31 100/36 93 Mechanical Ventilator 100 11/20/17 04:00 115 11/20/17 04:00 100 11/20/17 03:43 115 37 100 11/20/17 03:00 105 29 100/36 93 Mechanical Ventilator 100 11/20/17 02:00 113 35 95/38 93 Mechanical Ventilator 100 11/20/17 01:15 113 35 100 11/20/17 01:00 111 36 91/50 92 Mechanical Ventilator 100 11/20/17 00:00 99.8 111 38 91/36 91 Mechanical Ventilator 100 11/20/17 00:00 111 11/20/17 00:00 100 11/19/17 23:00 112 37 92/46 91 Mechanical Ventilator 100 11/19/17 23:00 92/46 11/19/17 22:45 112 31 100 11/19/17 22:00 114 37 98/38 92 Mechanical Ventilator 100 11/19/17 21:25 115 32 100 11/19/17 21:00 117 26 95/37 94 Mechanical Ventilator 100 11/19/17 20:50 100.0 11/19/17 20:00 100.0 119 27 96/38 92 Mechanical Ventilator 100 11/19/17 20:00 113 11/19/17 20:00 100 11/19/17 19:39 118 32 100 11/19/17 19:00 100.7 116 22 100/42 98 Mechanical Ventilator 100 11/19/17 18:00 100.3 116 21 99/40 98 Mechanical Ventilator 100 11/19/17 17:31 115 35 100 11/19/17 17:00 100.1 115 26 98/44 97 Mechanical Ventilator 100 11/19/17 16:00 100 11/19/17 16:00 116 11/19/17 15:09 116 35 100 11/19/17 15:01 117 35 100 11/19/17 15:00 100.2 116 26 104/43 97 Mechanical Ventilator 100 Intake and Output 11/19/17 11/20/17 19:00 07:00 Intake Total 356.531 ml 1450 ml Output Total 590 ml 110 ml Balance -233.469 ml 1340 ml IV Total 106.531 ml 1200 ml Blood Product 250 ml 250 ml Output Urine Total 110 ml 100 ml Gastric Drainage Total 480 ml 10 ml Laboratory Tests 11/19/17 15:45: White Blood Count 4.1L, Red Blood Count 3.01L, Hemoglobin 7.1L, Hematocrit 24.9L , Mean Corpuscular Volume 83, Mean Corpuscular Hemoglobin 23.5L, Mean Corpuscular Hemoglobin Concent 28.5L, Red Cell Distribution Width 21.5H, Platelet Count 82L, Mean Platelet Volume 9.8, Neutrophils (%) (Auto) , Lymphocytes (%) (Auto) , Monocytes (%) (Auto) , Eosinophils (%) (Auto) , Basophils (%) (Auto) , Differential Total Cells Counted 100, Neutrophils % ( Manual) 48, Lymphocytes % (Manual) 18L, Monocytes % (Manual) 20H, Eosinophils % (Manual) 1, Basophils % (Manual) 0, Metamyelocytes % 1H, Band Neutrophils 12H, Nucleated Red Blood Cells 105, Platelet Estimate DecreasedL, Platelet Morphology Normal, Polychromasia 2+, Hypochromasia 2+, Anisocytosis 3+, Microcytosis 1+, Erythrocyte Sedimentation Rate 60H, Reticulocyte Count 1.5, Prothrombin Time 23.7H, Prothromb Time International Ratio 2.2H, Activated Partial Thromboplast Time 52H, Lactic Acid Level 11.00H, Iron Level 20L, Total Iron Binding Capacity 179L, Percent Iron Saturation 11L, Unsaturated Iron Binding 159, Lactate Dehydrogenase 597H, Vitamin B12 Level > 2000H, Folate 10.7 11/19/17 18:10: Random Amikacin Level 20.2 11/19/17 20:10: Lactic Acid Level 9.60H 11/20/17 05:00: White Blood Count 8.5#, Red Blood Count 2.75L, Hemoglobin 7.2L, Hematocrit 21.7L , Mean Corpuscular Volume 79L, Mean Corpuscular Hemoglobin 26.2L, Mean Corpuscular Hemoglobin Concent 33.1, Red Cell Distribution Width 21.2H, Platelet Count 64L, Mean Platelet Volume 7.8, Neutrophils (%) (Auto) , Lymphocytes (%) (Auto) , Monocytes (%) (Auto) , Eosinophils (%) (Auto) , Basophils (%) (Auto) , Differential Total Cells Counted 100, Neutrophils % ( Manual) 61, Lymphocytes % (Manual) 12L, Monocytes % (Manual) 15H, Eosinophils % (Manual) 0, Basophils % (Manual) 0, Band Neutrophils 12H, Nucleated Red Blood Cells 20, Platelet Estimate DecreasedL, Platelet Morphology Normal, Hypochromasia 1+, Anisocytosis 2+, Microcytosis 1+, Lactic Acid Level 6.30H, Target Cells Occasional, Sodium Level 140, Potassium Level 4.3, Chloride Level 109H, Carbon Dioxide Level 16L, Anion Gap 15, Blood Urea Nitrogen 45H, Creatinine 4.3#H, Estimat Glomerular Filtration Rate 14.6, Glucose Level 22*L, Hemoglobin A1c 5.5, Uric Acid 6.9, Calcium Level 6.4L, Phosphorus Level 5.6H, Magnesium Level 1.9, Total Bilirubin 3.9H, Direct Bilirubin 2.9H, Gamma Glutamyl Transpeptidase 58, Aspartate Amino Transf (AST/SGOT) 438H, Alanine Aminotransferase (ALT/SGPT) 87H, Alkaline Phosphatase 40L, Ammonia 23, Total Creatine Kinase 296, Troponin I 1.011H, C-Reactive Protein, Quantitative 9.8H, Pro-B-Type Natriuretic Peptide 76398D, Total Protein 5.6L, Albumin 1.3L, Globulin 4.3, Albumin/Globulin Ratio 0.3L, Triglycerides Level 89, Cholesterol Level 85, LDL Cholesterol 29, HDL Cholesterol 18L, Cholesterol/HDL Ratio 4.7H, Thyroid Stimulating Hormone (TSH) 0.134L 11/20/17 06:08: Troponin I 0.880H 11/20/17 07:40: Arterial Blood pH 7.336L, Arterial Blood Partial Pressure CO2 33.0L, Arterial Blood Partial Pressure O2 46.0*L, Arterial Blood HCO3 17.2L, Arterial Blood Oxygen Saturation 75.8L, Arterial Blood Base Excess -7.8, Sigifredo Test Positive 11/20/17 10:35: Random Vancomycin Level 14.3 11/20/17 12:40: Lactic Acid Level 6.30H Height (Feet): 5 Height (Inches): 5.00 Weight (Pounds): 192 General Appearance: lethargic EENT: normal ENT inspection Neck: normal alignment Cardiovascular: normal peripheral pulses, normal rate, regular rhythm Respiratory/Chest: chest wall non-tender, lungs clear, decreased breath sounds Abdomen: normal bowel sounds, non tender, soft Extremities: normal inspection Edema: no edema noted Arm (L), no edema noted Arm (R), no edema noted Leg (L), no edema noted Leg (R), no edema noted Pedal (L), no edema noted Pedal (R), no edema noted Generalized Neurologic: motor weakness Skin: normal pigmentation, warm/dry PILAR TABOR Nov 20, 2017 14:40
--- NOTE | 2017-11-20 14:54 | Nephrology Progress Note ---
Assessment/Plan Assessment Acute renal failure ? due to sepsis Acute respiratory failure with hypoxia Lactic acid acidosis Severe anemia Pleural effusion Bilateral pneumonia Severe sepsis Severe HypoAlbuminemai , 3+ Proteinuria Plan Plan: Hydrate Monitor renal parameters Avoid nephrotoxics as possible hemodynamic support cortisol level per orders poor prognosis may need dialysis Subjective ROS Limited/Unobtainable: Yes Objective Objective Last 24 Hour Vital Signs Date Time Temp Pulse Resp B/P (MAP) Pulse Ox O2 Delivery O2 Flow Rate FiO2 11/20/17 13:04 112 41 100 11/20/17 13:00 98.6 11 37 102/51 91 Mechanical Ventilator 100 11/20/17 12:00 100 11/20/17 12:00 120 11/20/17 12:00 101.8 117 49 102/51 97 Mechanical Ventilator 100 11/20/17 11:31 120 43 100 11/20/17 11:00 101.8 121 41 102/51 80 Mechanical Ventilator 100 11/20/17 10:00 102.2 121 36 92/43 85 Mechanical Ventilator 100 11/20/17 09:38 119 37 100 11/20/17 09:00 102.2 119 33 88/39 86 Mechanical Ventilator 100 11/20/17 08:00 100 11/20/17 08:00 99.4 118 32 91/40 91 Mechanical Ventilator 100 11/20/17 08:00 118 11/20/17 07:29 118 37 100 11/20/17 07:00 116 39 98/41 87 Mechanical Ventilator 100 11/20/17 06:00 114 39 94/40 88 Mechanical Ventilator 100 11/20/17 05:00 115 25 91/36 88 Mechanical Ventilator 100 11/20/17 04:59 109 35 100 11/20/17 04:02 99.5 114 31 100/36 93 Mechanical Ventilator 100 11/20/17 04:00 115 11/20/17 04:00 100 11/20/17 03:43 115 37 100 11/20/17 03:00 105 29 100/36 93 Mechanical Ventilator 100 11/20/17 02:00 113 35 95/38 93 Mechanical Ventilator 100 11/20/17 01:15 113 35 100 11/20/17 01:00 111 36 91/50 92 Mechanical Ventilator 100 11/20/17 00:00 99.8 111 38 91/36 91 Mechanical Ventilator 100 11/20/17 00:00 111 11/20/17 00:00 100 11/19/17 23:00 112 37 92/46 91 Mechanical Ventilator 100 11/19/17 23:00 92/46 11/19/17 22:45 112 31 100 11/19/17 22:00 114 37 98/38 92 Mechanical Ventilator 100 11/19/17 21:25 115 32 100 11/19/17 21:00 117 26 95/37 94 Mechanical Ventilator 100 11/19/17 20:50 100.0 11/19/17 20:00 100.0 119 27 96/38 92 Mechanical Ventilator 100 11/19/17 20:00 113 11/19/17 20:00 100 11/19/17 19:39 118 32 100 11/19/17 19:00 100.7 116 22 100/42 98 Mechanical Ventilator 100 11/19/17 18:00 100.3 116 21 99/40 98 Mechanical Ventilator 100 11/19/17 17:31 115 35 100 11/19/17 17:00 100.1 115 26 98/44 97 Mechanical Ventilator 100 11/19/17 16:00 100 11/19/17 16:00 116 11/19/17 15:09 116 35 100 11/19/17 15:01 117 35 100 11/19/17 15:00 100.2 116 26 104/43 97 Mechanical Ventilator 100 Intake and Output 11/19/17 11/20/17 19:00 07:00 Intake Total 356.531 ml 1450 ml Output Total 590 ml 110 ml Balance -233.469 ml 1340 ml IV Total 106.531 ml 1200 ml Blood Product 250 ml 250 ml Output Urine Total 110 ml 100 ml Gastric Drainage Total 480 ml 10 ml Laboratory Tests 11/19/17 15:45: White Blood Count 4.1L, Red Blood Count 3.01L, Hemoglobin 7.1L, Hematocrit 24.9L , Mean Corpuscular Volume 83, Mean Corpuscular Hemoglobin 23.5L, Mean Corpuscular Hemoglobin Concent 28.5L, Red Cell Distribution Width 21.5H, Platelet Count 82L, Mean Platelet Volume 9.8, Neutrophils (%) (Auto) , Lymphocytes (%) (Auto) , Monocytes (%) (Auto) , Eosinophils (%) (Auto) , Basophils (%) (Auto) , Differential Total Cells Counted 100, Neutrophils % ( Manual) 48, Lymphocytes % (Manual) 18L, Monocytes % (Manual) 20H, Eosinophils % (Manual) 1, Basophils % (Manual) 0, Metamyelocytes % 1H, Band Neutrophils 12H, Nucleated Red Blood Cells 105, Platelet Estimate DecreasedL, Platelet Morphology Normal, Polychromasia 2+, Hypochromasia 2+, Anisocytosis 3+, Microcytosis 1+, Erythrocyte Sedimentation Rate 60H, Reticulocyte Count 1.5, Prothrombin Time 23.7H, Prothromb Time International Ratio 2.2H, Activated Partial Thromboplast Time 52H, Lactic Acid Level 11.00H, Iron Level 20L, Total Iron Binding Capacity 179L, Percent Iron Saturation 11L, Unsaturated Iron Binding 159, Lactate Dehydrogenase 597H, Vitamin B12 Level > 2000H, Folate 10.7 11/19/17 18:10: Random Amikacin Level 20.2 11/19/17 20:10: Lactic Acid Level 9.60H 11/20/17 05:00: White Blood Count 8.5#, Red Blood Count 2.75L, Hemoglobin 7.2L, Hematocrit 21.7L , Mean Corpuscular Volume 79L, Mean Corpuscular Hemoglobin 26.2L, Mean Corpuscular Hemoglobin Concent 33.1, Red Cell Distribution Width 21.2H, Platelet Count 64L, Mean Platelet Volume 7.8, Neutrophils (%) (Auto) , Lymphocytes (%) (Auto) , Monocytes (%) (Auto) , Eosinophils (%) (Auto) , Basophils (%) (Auto) , Differential Total Cells Counted 100, Neutrophils % ( Manual) 61, Lymphocytes % (Manual) 12L, Monocytes % (Manual) 15H, Eosinophils % (Manual) 0, Basophils % (Manual) 0, Band Neutrophils 12H, Nucleated Red Blood Cells 20, Platelet Estimate DecreasedL, Platelet Morphology Normal, Hypochromasia 1+, Anisocytosis 2+, Microcytosis 1+, Lactic Acid Level 6.30H, Target Cells Occasional, Sodium Level 140, Potassium Level 4.3, Chloride Level 109H, Carbon Dioxide Level 16L, Anion Gap 15, Blood Urea Nitrogen 45H, Creatinine 4.3#H, Estimat Glomerular Filtration Rate 14.6, Glucose Level 22*L, Hemoglobin A1c 5.5, Uric Acid 6.9, Calcium Level 6.4L, Phosphorus Level 5.6H, Magnesium Level 1.9, Total Bilirubin 3.9H, Direct Bilirubin 2.9H, Gamma Glutamyl Transpeptidase 58, Aspartate Amino Transf (AST/SGOT) 438H, Alanine Aminotransferase (ALT/SGPT) 87H, Alkaline Phosphatase 40L, Ammonia 23, Total Creatine Kinase 296, Troponin I 1.011H, C-Reactive Protein, Quantitative 9.8H, Pro-B-Type Natriuretic Peptide 85592H, Total Protein 5.6L, Albumin 1.3L, Globulin 4.3, Albumin/Globulin Ratio 0.3L, Triglycerides Level 89, Cholesterol Level 85, LDL Cholesterol 29, HDL Cholesterol 18L, Cholesterol/HDL Ratio 4.7H, Thyroid Stimulating Hormone (TSH) 0.134L 11/20/17 06:08: Troponin I 0.880H 11/20/17 07:40: Arterial Blood pH 7.336L, Arterial Blood Partial Pressure CO2 33.0L, Arterial Blood Partial Pressure O2 46.0*L, Arterial Blood HCO3 17.2L, Arterial Blood Oxygen Saturation 75.8L, Arterial Blood Base Excess -7.8, Sigifredo Test Positive 11/20/17 10:35: Random Vancomycin Level 14.3 11/20/17 12:40: Lactic Acid Level 6.30H, Hepatitis B Surface Antigen [Pending], Hepatitis B Surface Antibody, Quant [Pending], Hepatitis C Antibody [Pending] Height (Feet): 5 Height (Inches): 5.00 Weight (Pounds): 192 General Appearance: moderate distress EENT: other - on vent Cardiovascular: tachycardia Respiratory/Chest: decreased breath sounds Abdomen: distended SHERRY OLVERA Nov 20, 2017 14:54
[2017-11-20] MEDS ORDERED: Vancomycin 1gm/D5W 275ml IVPB ONE ×2 (15:00)
--- NOTE | 2017-11-20 21:45 | Consultation ---
DATE OF CONSULTATION: 11/20/2017 INFECTIOUS DISEASES CONSULT CONSULTING PHYSICIAN: Chi Claudio M.D. PRIMARY ATTENDING PHYSICIAN: Nehemiah Lemus D.O. REASON FOR CONSULT: Sepsis, septic shock, and pneumonia. HISTORY OF PRESENT ILLNESS: This is a 52-year-old male admitted on 11/18/2017. The patient had shortness of breath for three weeks, intubated in the ER, and transferred to ICU. Initial evaluation showed extensive pneumonia especially in the left lung. Blood cultures are growing gram-positive strep species. PAST MEDICAL HISTORY: COPD. No other history obtainable by the patient. MEDICATIONS: Vancomycin, cefepime, D5 normal saline, Tylenol, Protonix, DuoNeb inhaler, and morphine. ALLERGIES: No known drug allergy. PHYSICAL EXAMINATION: VITAL SIGNS: The patient is febrile, current temperature is 102.2, unresponsive, pulse is 112, respiration 41, and blood pressure is 92/43. The patient is anuric. HEAD AND NECK: Orally intubated, orogastric tube. HEART: Tachycardic. LUNGS: Tachypneic. Clear with decreased sounds in the bases. ABDOMEN: Mildly distended. EXTREMITIES: Generalized edema. LABORATORY DATA: Sodium 140, potassium 4.3, chloride 109, bicarbonate 16, BUN 45, creatinine 4.3, and glucose . Bilirubin 3.9, AST 438, ALT 87, and alkaline phosphatase . Lactic acid is 9.6. CT scan of the abdomen and pelvis showed ascites, anasarca, cirrhosis, and bilateral pleural effusion. Chest x-ray showed consolidation mainly in the left lung and some lesion in the right upper lobe. IMPRESSION: Sepsis, septic shock. Blood culture growing strep species. The patient has extensive pneumonia, acute respiratory failure with hypoxemia, acute renal failure, lactic acidosis, anemia, and cirrhosis of liver. RECOMMENDATION: We will continue with current antibiotics, cefepime and vancomycin. We will follow up the culture. We will ask for HIV and hepatitis B and C antibodies. At the end of my exam, I thank Dr. Nehemiah Lemus for involving me in the care of this patient. Chi Claudio M.D. DR: MARY JOB#: [id number] CC:
[2017-11-21] VITALS (32 sets, daily range): BP systolic 69–125; BP diastolic 32–58
[2017-11-21] MEDS: D5 1/2NS 1,000 ML IV SCH ×2 (01:14→14:26)
[2017-11-21 05:35] LABS: HEMATOCRIT 26.9 % (42.0-52.0); HEMOGLOBIN 8.5 G/DL (14.2-18.0); MEAN CORPUSCULAR VOLUME 81 FL (80-99); PLATELET COUNT 49 K/UL (150-450); RED BLOOD COUNT 3.33 M/UL (4.70-6.10); RED CELL DISTRIBUTION WIDTH 20.1 % (11.6-14.8)
[2017-11-21 06:06] LABS: ALANINE AMINOTRANSFERASE 100 U/L (12-78); ALBUMIN 1.4 G/DL (3.4-5.0); ALBUMIN/GLOBULIN RATIO 0.3 (1.0-2.7); ALKALINE PHOSPHATASE 43 U/L (46-116); ANION GAP 13 mmol/L (5-15); ASPARTATE AMINO TRANSFERASE 445 U/L (15-37); BLOOD UREA NITROGEN 64 mg/dL (7-18); CALCIUM 6.6 MG/DL (8.5-10.1); CARBON DIOXIDE 19 MMOL/L (21-32); CHLORIDE 107 MMOL/L (98-107); CREATININE 5.8 MG/DL (0.55-1.30); PHOSPHORUS 6.5 MG/DL (2.5-4.9); POTASSIUM 4.2 MMOL/L (3.5-5.1); SODIUM 139 MMOL/L (136-145)
--- NOTE | 2017-11-21 08:11 | Pulmonolgy Critical Care Note ---
Critical Care - Asmt/Plan Assessment/Plan: ASSESSMENT Acute hypoxemic hypercapnic RF requiring intubation Severe sepsis with shock Strep pneumonia bacteremia bilateral PNA Possible UTI Lactic acidosis acute anemia requiring multiple blood transfusion GI bleeding Elevated troponin pleural effusion Acute toxic metabolic encephalopathy (ikely multifactorial due to hypoglycemia, sepsis, liver failure , severe anemia) Liver cirrhosis Liver failure Coagulopathy Thrombocytopenia Acute renal failure possible hepatorenal syndrome MOF Hypoglycemia ( initially) mild pulmonary HTN PLAN OF CARE ICU care Vent support Pulm toilet daily ABG and CXR and titrate settings as needed PEEP increase to 12 hemodynamic support, IVF, Levophed on standby to keep MAP above 65 trop trending up ECG no acute ischemic changes ECHO with pEF 60-65% and RVSP of 42 c/w mild pulm HTN cardio eval- Abx, ID follows Blood cx + Strep pneumonia, urine cx negative, sputum cx HIV and hep panel negative CT C/A/P c/w extensive PNA, bilateral pleural effusion R>L, ascites, anasarca , probably liver cirrhosis Venous Duplex BLE if negative, get SCD Nephro follows ARF likely 2 to sepsis, monitor renal parameters, lytes, avoid nephrotoxic creat rising LFT/bili with sharp increase-likely liver failure possible hepatorenal syndrome discussed with nephro ; need emergent HD, no family to consent for HD catheter placement, need to do as emergent procedure; surgeon notified GI eval for acute severe anemia vit K for coagulopathy overall prognosis poor case discussed and evaluated by supervising physician Critical Care - Objective Last 24 Hour Vital Signs Date Time Temp Pulse Resp B/P (MAP) Pulse Ox O2 Delivery O2 Flow Rate FiO2 11/21/17 07:19 117 41 100 11/21/17 07:00 98.6 117 42 118/48 78 11/21/17 06:00 98.6 115 41 119/52 78 11/21/17 05:04 112 42 100 11/21/17 05:00 98.1 112 45 125/58 79 11/21/17 04:00 100 11/21/17 04:00 108 11/21/17 04:00 98.6 108 43 113/48 88 11/21/17 03:02 107 43 100 11/21/17 03:00 99.0 108 40 102/53 91 11/21/17 02:00 98.7 108 41 102/53 91 11/21/17 01:24 110 39 100 11/21/17 01:00 98.0 102 40 99/44 90 11/21/17 00:00 97.8 102 41 107/53 84 11/20/17 23:00 98.2 106 41 117/66 85 11/20/17 23:00 117/66 11/20/17 22:59 103 40 100 11/20/17 22:00 99.0 104 34 107/48 90 11/20/17 21:01 100 42 100 11/20/17 21:00 98.8 104 26 101/41 90 11/20/17 20:00 106 11/20/17 20:00 98.2 106 36 100/39 88 11/20/17 20:00 100 11/20/17 19:06 107 40 100 11/20/17 19:00 98.6 106 31 101/46 88 11/20/17 18:00 98.6 58 42 100/47 91 11/20/17 17:05 106 41 100 11/20/17 17:00 105 11/20/17 17:00 98.9 106 42 100/47 90 11/20/17 16:05 103 33 100 11/20/17 16:00 98.1 55 40 92/44 89 11/20/17 16:00 100 11/20/17 15:00 98.6 105 39 93/44 89 Mechanical Ventilator 100 11/20/17 14:00 98.7 108 35 93/42 95 Mechanical Ventilator 100 11/20/17 13:04 112 41 100 11/20/17 13:00 98.6 111 37 102/51 91 Mechanical Ventilator 100 11/20/17 12:00 100 11/20/17 12:00 120 11/20/17 12:00 101.8 117 49 102/51 97 Mechanical Ventilator 100 11/20/17 11:31 120 43 100 11/20/17 11:00 101.8 121 41 102/51 80 Mechanical Ventilator 100 11/20/17 10:00 102.2 121 36 92/43 85 Mechanical Ventilator 100 11/20/17 09:38 119 37 100 11/20/17 09:00 102.2 119 33 88/39 86 Mechanical Ventilator 100 11/20/17 08:00 100 11/20/17 08:00 99.4 118 32 91/40 91 Mechanical Ventilator 100 11/20/17 08:00 118 Status: other - lethargic on vent AC with 100% FiO2 TV 700, AC-20, PEEP 10 Condition: grave HEENT: atraumatic, normocephalic, other - OP with ET in palce intact Lungs: rhonchi - scattered Heart: regular - ST on tele Abdomen: soft - distended , active bowel sounds Extremities: no C/C/E Micro: Microbiology Date/Time Source Procedure Growth Status 11/18/17 17:50 Blood Blood Culture - Final Streptococcus Pneumoniae Complete 11/18/17 17:40 Blood Blood Culture - Final Streptococcus Pneumoniae Complete 11/18/17 21:51 Urine,Clean Catch Urine Culture - Preliminary NO GROWTH AFTER 24 HOURS Resulted 11/18/17 21:05 Rectum VRE Culture - Final NO VANCOMYCIN RESISTANT ENTEROCOCCUS ... Complete Accucheck: 100 Critical Care - Subjective ROS Limited/Unobtainable: Yes Interval Events: ABG this am with hypoxemia and acidosis on 100% FIO2 worsening renal parameters elevated troponin leukocytosis with trend up severely worsening transaminases creat rising HH up after 5 u of PRBC only till 8.5/26.9 INR-2.2 PLT trending down Condition: critical IV Access: peripheral EKG Rhythm: Sinus Tachycardia FI02: 100 Vent Support Breath Rate: 20 Vent Support Mode: AC Vent Tidal Volume: 700 Sputum Amount: None PEEP: 10.0 PIP: 29 Fluids: D5 1/2 NS at 75 I&O: Intake and Output 11/20/17 11/21/17 19:00 07:00 Intake Total 998.75 ml 1270 ml Output Total 305 ml 110 ml Balance 693.75 ml 1160 ml IV Total 998.75 ml 900 ml Blood Product 370 ml Output Urine Total 305 ml 30 ml Gastric Drainage Total 80 ml # Bowel Movements 1 2 CXR: 11/20 Improved but still extensive left lung parenchymal disease, over 2 days Consolidation in the right lung appears less focally dense but more widespread than previously. Left pleural effusion ET-Tube: 7.5 ET Position: 21 [place] (Shila Mejia NP Nov 21, 2017 08:11
--- NOTE | 2017-11-21 09:17 | General Progress Note ---
Assessment/Plan Problem List: (1) Pleural effusion ICD Codes: J90 - Pleural effusion, not elsewhere classified SNOMED: 76751945, 185894735 (2) Lactic acid acidosis ICD Codes: E87.2 - Acidosis SNOMED: 17736660, 032551227 (3) Bilateral pneumonia ICD Codes: J18.9 - Pneumonia, unspecified organism SNOMED: 331749723 (4) Acute respiratory failure with hypoxia ICD Codes: J96.01 - Acute respiratory failure with hypoxia SNOMED: 68649390, 506819555 (5) Severe anemia ICD Codes: D64.9 - Anemia, unspecified SNOMED: 537653533, 330521584 (6) Severe sepsis ICD Codes: A41.9 - Sepsis, unspecified organism; R65.20 - Severe sepsis without septic shock SNOMED: 73144495 Status: unchanged Assessment/Plan vent abx neph f/u bp control cbc bmp in am Subjective Constitutional: Reports: weakness Allergies: Coded Allergies: No Known Allergies (Unverified , 11/18/17) All Systems: reviewed and negative except above Subjective intub sedated in icu Objective Last 24 Hour Vital Signs Date Time Temp Pulse Resp B/P (MAP) Pulse Ox O2 Delivery O2 Flow Rate FiO2 11/21/17 09:00 99.3 110 23 100/44 88 Mechanical Ventilator 100 11/21/17 08:00 114 11/21/17 08:00 98.9 114 21 109/45 87 Mechanical Ventilator 100 11/21/17 08:00 100 11/21/17 07:19 117 41 100 11/21/17 07:00 98.6 117 42 118/48 78 Mechanical Ventilator 100 11/21/17 06:00 98.6 115 41 119/52 78 Mechanical Ventilator 100 11/21/17 05:04 112 42 100 11/21/17 05:00 98.1 112 45 125/58 79 11/21/17 04:00 100 11/21/17 04:00 108 11/21/17 04:00 98.6 108 43 113/48 88 11/21/17 03:02 107 43 100 11/21/17 03:00 99.0 108 40 102/53 91 11/21/17 02:00 98.7 108 41 102/53 91 11/21/17 01:24 110 39 100 11/21/17 01:00 98.0 102 40 99/44 90 Mechanical Ventilator 100 11/21/17 00:00 97.8 102 41 107/53 84 Mechanical Ventilator 100 11/20/17 23:00 98.2 106 41 117/66 85 Mechanical Ventilator 100 11/20/17 23:00 117/66 11/20/17 22:59 103 40 100 11/20/17 22:00 99.0 104 34 107/48 90 Mechanical Ventilator 100 11/20/17 21:01 100 42 100 11/20/17 21:00 98.8 104 26 101/41 90 Mechanical Ventilator 100 11/20/17 20:00 106 11/20/17 20:00 98.2 106 36 100/39 88 Mechanical Ventilator 100 11/20/17 20:00 100 11/20/17 19:06 107 40 100 11/20/17 19:00 98.6 106 31 101/46 88 11/20/17 18:00 98.6 58 42 100/47 91 11/20/17 17:05 106 41 100 11/20/17 17:00 105 11/20/17 17:00 98.9 106 42 100/47 90 11/20/17 16:05 103 33 100 11/20/17 16:00 98.1 55 40 92/44 89 11/20/17 16:00 100 11/20/17 15:00 98.6 105 39 93/44 89 Mechanical Ventilator 100 11/20/17 14:00 98.7 108 35 93/42 95 Mechanical Ventilator 100 11/20/17 13:04 112 41 100 11/20/17 13:00 98.6 111 37 102/51 91 Mechanical Ventilator 100 11/20/17 12:00 100 11/20/17 12:00 120 11/20/17 12:00 101.8 117 49 102/51 97 Mechanical Ventilator 100 11/20/17 11:31 120 43 100 11/20/17 11:00 101.8 121 41 102/51 80 Mechanical Ventilator 100 11/20/17 10:00 102.2 121 36 92/43 85 Mechanical Ventilator 100 11/20/17 09:38 119 37 100 Intake and Output 11/20/17 11/21/17 19:00 07:00 Intake Total 998.75 ml 1270 ml Output Total 305 ml 110 ml Balance 693.75 ml 1160 ml IV Total 998.75 ml 900 ml Blood Product 370 ml Output Urine Total 305 ml 30 ml Gastric Drainage Total 80 ml # Bowel Movements 1 2 Laboratory Tests 11/20/17 10:35: Cortisol AM Sample 12.5, Random Vancomycin Level 14.3 11/20/17 12:40: Lactic Acid Level 6.30H, Hepatitis B Surface Antigen [Pending], Hepatitis B Surface Antibody [Pending], Hepatitis C Antibody [Pending] 11/20/17 18:35: Lactic Acid Level 6.10H 11/21/17 04:26: White Blood Count 17.0#H, Red Blood Count 3.33L, Hemoglobin 8.5L, Hematocrit 26.9L, Mean Corpuscular Volume 81, Mean Corpuscular Hemoglobin 25.5L, Mean Corpuscular Hemoglobin Concent 31.7L, Red Cell Distribution Width 20.1H, Platelet Count 49L, Mean Platelet Volume 11.2H, Neutrophils (%) (Auto) , Lymphocytes (%) (Auto) , Monocytes (%) (Auto) , Eosinophils (%) (Auto) , Basophils (%) (Auto) , Neutrophils % (Manual) [Pending], Lymphocytes % (Manual) [Pending], Platelet Estimate [Pending], Platelet Morphology [Pending], Sodium Level 139, Potassium Level 4.2, Chloride Level 107, Carbon Dioxide Level 19L, Anion Gap 13, Blood Urea Nitrogen 64H, Creatinine 5.8H, Estimat Glomerular Filtration Rate 10.4, Glucose Level 120H, Uric Acid 8.1H, Calcium Level 6.6L, Phosphorus Level 6.5H, Magnesium Level 2.2, Total Bilirubin 5.0H, Direct Bilirubin 4.0H, Aspartate Amino Transf (AST/SGOT) 445H, Alanine Aminotransferase (ALT/SGPT) 100H, Alkaline Phosphatase 43L, Ammonia 51H, Troponin I 1.564H, C-Reactive Protein, Quantitative 12.4H, Pro-B-Type Natriuretic Peptide 69308Q, Total Protein 6.2L, Albumin 1.4L, Globulin 4.8, Albumin/Globulin Ratio 0.3L, HIV (1&2) Antibody Rapid Negative 11/21/17 07:30: Arterial Blood pH 7.194*L, Arterial Blood Partial Pressure CO2 45.0, Arterial Blood Partial Pressure O2 45.8*L, Arterial Blood HCO3 17.0L, Arterial Blood Oxygen Saturation 55.6L, Arterial Blood Base Excess -10.6, Sigifredo Test Positive Height (Feet): 5 Height (Inches): 5.00 Weight (Pounds): 227 General Appearance: lethargic EENT: normal ENT inspection Neck: normal alignment Cardiovascular: normal peripheral pulses, normal rate, regular rhythm Respiratory/Chest: decreased breath sounds Abdomen: normal bowel sounds, non tender, soft Extremities: normal inspection Edema: no edema noted Arm (L), no edema noted Arm (R), no edema noted Leg (L), no edema noted Leg (R), no edema noted Pedal (L), no edema noted Pedal (R), no edema noted Generalized Neurologic: motor weakness Skin: normal pigmentation, warm/dry PILAR TABOR Nov 21, 2017 09:17
[2017-11-21] MEDS: Pantoprazole Inj IVP SCH (09:25)
--- NOTE | 2017-11-21 10:49 | Nephrology Progress Note ---
Assessment/Plan Problem List: (1) Acute respiratory failure with hypoxia (2) Acute renal failure Assessment Acute renal failure ? due to sepsis Acute respiratory failure with hypoxia Lactic acid acidosis Severe anemia Pleural effusion Bilateral pneumonia Severe sepsis Severe HypoAlbuminemai , 3+ Proteinuria bleeding diathesis Plan Plan: dialysis attempt patient unable to consent GS called discussed with RN Monitor renal parameters Avoid nephrotoxics as possible hemodynamic support cortisol level per orders poor prognosis may need dialysis Subjective ROS Limited/Unobtainable: Yes Objective Objective Last 24 Hour Vital Signs Date Time Temp Pulse Resp B/P (MAP) Pulse Ox O2 Delivery O2 Flow Rate FiO2 11/21/17 10:00 98.7 114 43 124/45 90 Mechanical Ventilator 100 11/21/17 09:22 111 41 100 11/21/17 09:00 99.3 110 23 100/44 88 Mechanical Ventilator 100 11/21/17 08:00 114 11/21/17 08:00 98.9 114 21 109/45 87 Mechanical Ventilator 100 11/21/17 08:00 100 11/21/17 07:19 117 41 100 11/21/17 07:00 98.6 117 42 118/48 78 Mechanical Ventilator 100 11/21/17 06:00 98.6 115 41 119/52 78 Mechanical Ventilator 100 11/21/17 05:04 112 42 100 11/21/17 05:00 98.1 112 45 125/58 79 11/21/17 04:00 100 11/21/17 04:00 108 11/21/17 04:00 98.6 108 43 113/48 88 11/21/17 03:02 107 43 100 11/21/17 03:00 99.0 108 40 102/53 91 11/21/17 02:00 98.7 108 41 102/53 91 11/21/17 01:24 110 39 100 11/21/17 01:00 98.0 102 40 99/44 90 Mechanical Ventilator 100 11/21/17 00:00 97.8 102 41 107/53 84 Mechanical Ventilator 100 11/20/17 23:00 98.2 106 41 117/66 85 Mechanical Ventilator 100 11/20/17 23:00 117/66 11/20/17 22:59 103 40 100 11/20/17 22:00 99.0 104 34 107/48 90 Mechanical Ventilator 100 11/20/17 21:01 100 42 100 11/20/17 21:00 98.8 104 26 101/41 90 Mechanical Ventilator 100 11/20/17 20:00 106 11/20/17 20:00 98.2 106 36 100/39 88 Mechanical Ventilator 100 11/20/17 20:00 100 11/20/17 19:06 107 40 100 11/20/17 19:00 98.6 106 31 101/46 88 11/20/17 18:00 98.6 58 42 100/47 91 11/20/17 17:05 106 41 100 11/20/17 17:00 105 11/20/17 17:00 98.9 106 42 100/47 90 11/20/17 16:05 103 33 100 11/20/17 16:00 98.1 55 40 92/44 89 11/20/17 16:00 100 11/20/17 15:00 98.6 105 39 93/44 89 Mechanical Ventilator 100 11/20/17 14:00 98.7 108 35 93/42 95 Mechanical Ventilator 100 11/20/17 13:04 112 41 100 11/20/17 13:00 98.6 111 37 102/51 91 Mechanical Ventilator 100 11/20/17 12:00 100 11/20/17 12:00 120 11/20/17 12:00 101.8 117 49 102/51 97 Mechanical Ventilator 100 11/20/17 11:31 120 43 100 11/20/17 11:00 101.8 121 41 102/51 80 Mechanical Ventilator 100 Intake and Output 11/20/17 11/21/17 19:00 07:00 Intake Total 998.75 ml 1270 ml Output Total 305 ml 110 ml Balance 693.75 ml 1160 ml IV Total 998.75 ml 900 ml Blood Product 370 ml Output Urine Total 305 ml 30 ml Gastric Drainage Total 80 ml # Bowel Movements 1 2 Laboratory Tests 11/20/17 12:40: Lactic Acid Level 6.30H, Hepatitis B Surface Antigen [Pending], Hepatitis B Surface Antibody [Pending], Hepatitis C Antibody [Pending] 11/20/17 18:35: Lactic Acid Level 6.10H 11/21/17 04:26: White Blood Count 17.0#H, Red Blood Count 3.33L, Hemoglobin 8.5L, Hematocrit 26.9L, Mean Corpuscular Volume 81, Mean Corpuscular Hemoglobin 25.5L, Mean Corpuscular Hemoglobin Concent 31.7L, Red Cell Distribution Width 20.1H, Platelet Count 49L, Mean Platelet Volume 11.2H, Neutrophils (%) (Auto) , Lymphocytes (%) (Auto) , Monocytes (%) (Auto) , Eosinophils (%) (Auto) , Basophils (%) (Auto) , Differential Total Cells Counted 100, Neutrophils % ( Manual) 77H, Lymphocytes % (Manual) 7L, Monocytes % (Manual) 6, Metamyelocytes % 1H, Band Neutrophils 9H, Nucleated Red Blood Cells 29, Platelet Estimate [ Pending], Platelet Morphology Normal, Hypochromasia 2+, Anisocytosis 2+, Sodium Level 139, Potassium Level 4.2, Chloride Level 107, Carbon Dioxide Level 19L, Anion Gap 13, Blood Urea Nitrogen 64H, Creatinine 5.8H, Estimat Glomerular Filtration Rate 10.4, Glucose Level 120H, Uric Acid 8.1H, Calcium Level 6.6L, Phosphorus Level 6.5H, Magnesium Level 2.2, Total Bilirubin 5.0H, Direct Bilirubin 4.0H, Aspartate Amino Transf (AST/SGOT) 445H, Alanine Aminotransferase (ALT/SGPT) 100H, Alkaline Phosphatase 43L, Ammonia 51H, Troponin I 1.564H, C-Reactive Protein, Quantitative 12.4H, Pro-B-Type Natriuretic Peptide 49414H, Total Protein 6.2L, Albumin 1.4L, Globulin 4.8, Albumin/Globulin Ratio 0.3L, HIV (1&2) Antibody Rapid Negative 11/21/17 07:30: Arterial Blood pH 7.194*L, Arterial Blood Partial Pressure CO2 45.0, Arterial Blood Partial Pressure O2 45.8*L, Arterial Blood HCO3 17.0L, Arterial Blood Oxygen Saturation 55.6L, Arterial Blood Base Excess -10.6, Sigifredo Test Positive Height (Feet): 5 Height (Inches): 5.00 Weight (Pounds): 227 General Appearance: no apparent distress Cardiovascular: tachycardia Respiratory/Chest: decreased breath sounds Abdomen: distended SHERRY OLVERA Nov 21, 2017 10:49
--- NOTE | 2017-11-21 11:17 | General Progress Note ---
Progress Note Progress Note Patient needs emergent HD in hepatorenal syndrome needs emergent placement of HD catheter and start HD no family available to consent Luther (Byron),Shila HOUSTON Nov 21, 2017 11:17
[2017-11-21] MEDS: Cefepime 1gm/D5W 55ml IVPB SCH ×2 (11:53)
--- NOTE | 2017-11-21 12:30 | General Progress Note ---
Assessment/Plan Problem List: (1) Cirrhosis ICD Codes: K74.60 - Unspecified cirrhosis of liver SNOMED: 59313516 (2) GIB (gastrointestinal bleeding) ICD Codes: K92.2 - Gastrointestinal hemorrhage, unspecified SNOMED: 28158772 (3) Coagulopathy ICD Codes: D68.9 - Coagulation defect, unspecified SNOMED: 79620312 (4) Thrombocytopenia ICD Codes: D69.6 - Thrombocytopenia, unspecified SNOMED: 326996394 (5) Acute respiratory failure with hypoxia ICD Codes: J96.01 - Acute respiratory failure with hypoxia SNOMED: 29650718, 319504742 Assessment/Plan octreotide ppi vit k prn blood transfusion not stable for endoscopy Subjective ROS Limited/Unobtainable: No Allergies: Coded Allergies: No Known Allergies (Unverified , 11/18/17) Objective Last 24 Hour Vital Signs Date Time Temp Pulse Resp B/P (MAP) Pulse Ox O2 Delivery O2 Flow Rate FiO2 11/21/17 12:00 100 11/21/17 12:00 98.1 106 30 101/41 91 Mechanical Ventilator 100 11/21/17 12:00 111 11/21/17 11:09 107 30 100 11/21/17 11:00 99.0 107 16 101/41 91 Mechanical Ventilator 100 11/21/17 10:00 98.7 114 43 124/45 90 Mechanical Ventilator 100 11/21/17 09:22 111 41 100 11/21/17 09:00 99.3 110 23 100/44 88 Mechanical Ventilator 100 11/21/17 08:00 114 11/21/17 08:00 98.9 114 21 109/45 87 Mechanical Ventilator 100 11/21/17 08:00 100 11/21/17 07:19 117 41 100 11/21/17 07:00 98.6 117 42 118/48 78 Mechanical Ventilator 100 11/21/17 06:00 98.6 115 41 119/52 78 Mechanical Ventilator 100 11/21/17 05:04 112 42 100 11/21/17 05:00 98.1 112 45 125/58 79 11/21/17 04:00 100 11/21/17 04:00 108 11/21/17 04:00 98.6 108 43 113/48 88 11/21/17 03:02 107 43 100 11/21/17 03:00 99.0 108 40 102/53 91 11/21/17 02:00 98.7 108 41 102/53 91 11/21/17 01:24 110 39 100 11/21/17 01:00 98.0 102 40 99/44 90 Mechanical Ventilator 100 11/21/17 00:00 97.8 102 41 107/53 84 Mechanical Ventilator 100 11/20/17 23:00 98.2 106 41 117/66 85 Mechanical Ventilator 100 11/20/17 23:00 117/66 11/20/17 22:59 103 40 100 11/20/17 22:00 99.0 104 34 107/48 90 Mechanical Ventilator 100 11/20/17 21:01 100 42 100 11/20/17 21:00 98.8 104 26 101/41 90 Mechanical Ventilator 100 11/20/17 20:00 106 11/20/17 20:00 98.2 106 36 100/39 88 Mechanical Ventilator 100 11/20/17 20:00 100 11/20/17 19:06 107 40 100 11/20/17 19:00 98.6 106 31 101/46 88 11/20/17 18:00 98.6 58 42 100/47 91 11/20/17 17:05 106 41 100 11/20/17 17:00 105 11/20/17 17:00 98.9 106 42 100/47 90 11/20/17 16:05 103 33 100 11/20/17 16:00 98.1 55 40 92/44 89 11/20/17 16:00 100 11/20/17 15:00 98.6 105 39 93/44 89 Mechanical Ventilator 100 11/20/17 14:00 98.7 108 35 93/42 95 Mechanical Ventilator 100 11/20/17 13:04 112 41 100 11/20/17 13:00 98.6 111 37 102/51 91 Mechanical Ventilator 100 Intake and Output 11/20/17 11/21/17 19:00 07:00 Intake Total 998.75 ml 1270 ml Output Total 305 ml 110 ml Balance 693.75 ml 1160 ml IV Total 998.75 ml 900 ml Blood Product 370 ml Output Urine Total 305 ml 30 ml Gastric Drainage Total 80 ml # Bowel Movements 1 2 Laboratory Tests 11/20/17 12:40: Lactic Acid Level 6.30H, Hepatitis B Surface Antigen [Pending], Hepatitis B Surface Antibody [Pending], Hepatitis C Antibody [Pending] 11/20/17 18:35: Lactic Acid Level 6.10H 11/21/17 04:26: White Blood Count 17.0#H, Red Blood Count 3.33L, Hemoglobin 8.5L, Hematocrit 26.9L, Mean Corpuscular Volume 81, Mean Corpuscular Hemoglobin 25.5L, Mean Corpuscular Hemoglobin Concent 31.7L, Red Cell Distribution Width 20.1H, Platelet Count 49L, Mean Platelet Volume 11.2H, Neutrophils (%) (Auto) , Lymphocytes (%) (Auto) , Monocytes (%) (Auto) , Eosinophils (%) (Auto) , Basophils (%) (Auto) , Differential Total Cells Counted 100, Neutrophils % ( Manual) 77H, Lymphocytes % (Manual) 7L, Monocytes % (Manual) 6, Metamyelocytes % 1H, Band Neutrophils 9H, Nucleated Red Blood Cells 29, Platelet Estimate [ Pending], Platelet Morphology Normal, Hypochromasia 2+, Anisocytosis 2+, Sodium Level 139, Potassium Level 4.2, Chloride Level 107, Carbon Dioxide Level 19L, Anion Gap 13, Blood Urea Nitrogen 64H, Creatinine 5.8H, Estimat Glomerular Filtration Rate 10.4, Glucose Level 120H, Uric Acid 8.1H, Calcium Level 6.6L, Phosphorus Level 6.5H, Magnesium Level 2.2, Total Bilirubin 5.0H, Direct Bilirubin 4.0H, Aspartate Amino Transf (AST/SGOT) 445H, Alanine Aminotransferase (ALT/SGPT) 100H, Alkaline Phosphatase 43L, Ammonia 51H, Troponin I 1.564H, C-Reactive Protein, Quantitative 12.4H, Pro-B-Type Natriuretic Peptide 95509I, Total Protein 6.2L, Albumin 1.4L, Globulin 4.8, Albumin/Globulin Ratio 0.3L, HIV (1&2) Antibody Rapid Negative 11/21/17 07:30: Arterial Blood pH 7.194*L, Arterial Blood Partial Pressure CO2 45.0, Arterial Blood Partial Pressure O2 45.8*L, Arterial Blood HCO3 17.0L, Arterial Blood Oxygen Saturation 55.6L, Arterial Blood Base Excess -10.6, Sigifredo Test Positive Height (Feet): 5 Height (Inches): 5.00 Weight (Pounds): 227 General Appearance: lethargic EENT: normal ENT inspection Neck: supple Cardiovascular: tachycardia Respiratory/Chest: decreased breath sounds Abdomen: soft, hypoactive bowel sounds, distended Edema: 2+ Generalized ALFA LAINEZ Nov 21, 2017 12:30
--- NOTE | 2017-11-21 13:00 | Consultation ---
History of Present Illness General Date patient seen: Nov 21, 2017 Chief Complaint: Dyspnea/Respdistress Reason for Consultation: dialysis access Present Illness HPI 52M in septic shock currently in ICU under medical care and management. Patient unable to communicate and no family available for history. information obtained from EMR and Staff. Multiple medical comorbidities. ARF likely from sepsis. urgent need for dialysis. Surgery called to evaluate for access. Allergies: Coded Allergies: No Known Allergies (Unverified , 11/18/17) Medication History Miscellaneous Medications Unable to Obtain Medications (Unable To Obtain Meds), (Reported) Patient History Limited by: medical condition History Provided By: Medical Record, PMD Healthcare decision maker unk Resuscitation status Full Code Advanced Directive on File No Past Medical/Surgical History Past Medical/Surgical History: (1) Pleural effusion (2) Lactic acid acidosis (3) Bilateral pneumonia (4) Acute respiratory failure with hypoxia (5) Severe anemia (6) Severe sepsis (7) Acute renal failure (8) Coagulopathy (9) Cirrhosis (10) Thrombocytopenia (11) GIB (gastrointestinal bleeding) Review of Systems ROS Narrative cannot obtain given patients current medical status Physical Exam General Appearance: mild distress Lines, tubes and drains: central line HEENT: atraumatic, mucous membranes moist Neck: normal inspection Respiratory/Chest: no respiratory distress, no accessory muscle use, on vent Cardiovascular/Chest: tachycardia Abdomen: soft, no organomegaly, no mass, distended Extremities: normal inspection Skin Exam: normal pigmentation Neurologic: unresponsiveness Last 24 Hour Vital Signs Date Time Temp Pulse Resp B/P (MAP) Pulse Ox O2 Delivery O2 Flow Rate FiO2 11/21/17 12:00 100 11/21/17 12:00 98.1 106 30 101/41 91 Mechanical Ventilator 100 11/21/17 12:00 111 11/21/17 11:09 107 30 100 11/21/17 11:00 99.0 107 16 101/41 91 Mechanical Ventilator 100 11/21/17 10:00 98.7 114 43 124/45 90 Mechanical Ventilator 100 11/21/17 09:22 111 41 100 11/21/17 09:00 99.3 110 23 100/44 88 Mechanical Ventilator 100 11/21/17 08:00 114 11/21/17 08:00 98.9 114 21 109/45 87 Mechanical Ventilator 100 11/21/17 08:00 100 11/21/17 07:19 117 41 100 1/6/18 07:00 98.6 117 42 118/48 78 Mechanical Ventilator 100 11/21/17 06:00 98.6 115 41 119/52 78 Mechanical Ventilator 100 11/21/17 05:04 112 42 100 11/21/17 05:00 98.1 112 45 125/58 79 11/21/17 04:00 100 11/21/17 04:00 108 11/21/17 04:00 98.6 108 43 113/48 88 11/21/17 03:02 107 43 100 11/21/17 03:00 99.0 108 40 102/53 91 11/21/17 02:00 98.7 108 41 102/53 91 11/21/17 01:24 110 39 100 11/21/17 01:00 98.0 102 40 99/44 90 Mechanical Ventilator 100 11/21/17 00:00 97.8 102 41 107/53 84 Mechanical Ventilator 100 11/20/17 23:00 98.2 106 41 117/66 85 Mechanical Ventilator 100 11/20/17 23:00 117/66 11/20/17 22:59 103 40 100 11/20/17 22:00 99.0 104 34 107/48 90 Mechanical Ventilator 100 11/20/17 21:01 100 42 100 11/20/17 21:00 98.8 104 26 101/41 90 Mechanical Ventilator 100 11/20/17 20:00 106 11/20/17 20:00 98.2 106 36 100/39 88 Mechanical Ventilator 100 11/20/17 20:00 100 11/20/17 19:06 107 40 100 11/20/17 19:00 98.6 106 31 101/46 88 11/20/17 18:00 98.6 58 42 100/47 91 11/20/17 17:05 106 41 100 11/20/17 17:00 105 11/20/17 17:00 98.9 106 42 100/47 90 11/20/17 16:05 103 33 100 11/20/17 16:00 98.1 55 40 92/44 89 11/20/17 16:00 100 11/20/17 15:00 98.6 105 39 93/44 89 Mechanical Ventilator 100 11/20/17 14:00 98.7 108 35 93/42 95 Mechanical Ventilator 100 11/20/17 13:04 112 41 100 1/5/18 13:00 98.6 111 37 102/51 91 Mechanical Ventilator 100 Intake and Output 11/20/17 11/21/17 19:00 07:00 Intake Total 998.75 ml 1270 ml Output Total 305 ml 110 ml Balance 693.75 ml 1160 ml IV Total 998.75 ml 900 ml Blood Product 370 ml Output Urine Total 305 ml 30 ml Gastric Drainage Total 80 ml # Bowel Movements 1 2 Laboratory Tests Test 11/20/17 18:35 11/21/17 04:26 11/21/17 07:30 Lactic Acid Level 6.10 mmol/L (0.66-2.22) H White Blood Count 17.0 K/UL (4.8-10.8) #H Red Blood Count 3.33 M/UL (4.70-6.10) L Hemoglobin 8.5 G/DL (14.2-18.0) L Hematocrit 26.9 % (42.0-52.0) L Mean Corpuscular Volume 81 FL (80-99) Mean Corpuscular Hemoglobin 25.5 PG (27.0-31.0) L Mean Corpuscular Hemoglobin Concent 31.7 G/DL (32.0-36.0) L Red Cell Distribution Width 20.1 % (11.6-14.8) H Platelet Count 49 K/UL (150-450) L Mean Platelet Volume 11.2 FL (6.5-10.1) H Neutrophils (%) (Auto) % (45.0-75.0) Lymphocytes (%) (Auto) % (20.0-45.0) Monocytes (%) (Auto) % (1.0-10.0) Eosinophils (%) (Auto) % (0.0-3.0) Basophils (%) (Auto) % (0.0-2.0) Differential Total Cells Counted 100 Neutrophils % (Manual) 77 % (45-75) H Lymphocytes % (Manual) 7 % (20-45) L Monocytes % (Manual) 6 % (1-10) Metamyelocytes % 1 % (0-0) H Band Neutrophils 9 % (0-8) H Nucleated Red Blood Cells 29 /100 WBC Platelet Estimate Pending Platelet Morphology Normal Hypochromasia 2+ Anisocytosis 2+ Sodium Level 139 MMOL/L (136-145) Potassium Level 4.2 MMOL/L (3.5-5.1) Chloride Level 107 MMOL/L (98-107) Carbon Dioxide Level 19 MMOL/L (21-32) L Anion Gap 13 mmol/L (5-15) Blood Urea Nitrogen 64 mg/dL (7-18) H Creatinine 5.8 MG/DL (0.55-1.30) H Estimat Glomerular Filtration Rate 10.4 mL/min (>60) Glucose Level 120 MG/DL (74-106) H Uric Acid 8.1 MG/DL (2.6-7.2) H Calcium Level 6.6 MG/DL (8.5-10.1) L Phosphorus Level 6.5 MG/DL (2.5-4.9) H Magnesium Level 2.2 MG/DL (1.8-2.4) Total Bilirubin 5.0 MG/DL (0.2-1.0) H Direct Bilirubin 4.0 MG/DL (0.0-0.3) H Aspartate Amino Transf (AST/SGOT) 445 U/L (15-37) H Alanine Aminotransferase (ALT/SGPT) 100 U/L (12-78) H Alkaline Phosphatase 43 U/L (46-116) L Ammonia 51 umol/L (11-32) H Troponin I 1.564 ng/mL (0.000-0.056) C-Reactive Protein, Quantitative 12.4 mg/dL (0.00-0.90) H Pro-B-Type Natriuretic Peptide 25920 pg/mL (0-125) H Total Protein 6.2 G/DL (6.4-8.2) L Albumin 1.4 G/DL (3.4-5.0) L Globulin 4.8 g/dL Albumin/Globulin Ratio 0.3 (1.0-2.7) L HIV (1&2) Antibody Rapid Negative (NEGATIVE) Arterial Blood pH 7.194 (7.350-7.450) Arterial Blood Partial Pressure CO2 45.0 mmHg (35.0-45.0) Arterial Blood Partial Pressure O2 45.8 mmHg (75.0-100.0) Arterial Blood HCO3 17.0 mmol/L (22.0-26.0) L Arterial Blood Oxygen Saturation 55.6 % (92.0-98.0) L Arterial Blood Base Excess -10.6 Sigifredo Test Positive Height (Feet): 5 Height (Inches): 5.00 Weight (Pounds): 227 Medications Current Medications Medications (Trade) Dose Ordered Sig/Clarisse Route PRN Reason Start Time Stop Time Status Last Admin Dose Admin Acetaminophen (Tylenol) 650 mg Q4H PRN ORAL fever 11/18/17 23:00 12/18/17 22:59 Acetaminophen (Tylenol) 650 mg Q4H PRN RECTAL Mild Pain (Pain Scale 1-3) 11/19/17 20:15 12/19/17 20:14 11/19/17 20:20 Albuterol/ Ipratropium (Albuterol/ Ipratropium) 3 ml EVERY 4 HOURS PRN HHN Shortness of Breath 11/18/17 23:00 11/23/17 22:59 Cefepime HCl 1 gm/ Dextrose 55 ml @ 110 mls/hr Q24H IVPB 11/20/17 12:00 11/27/17 11:59 11/21/17 11:53 Dextrose (Dextrose 50%) 50 ml PRN PRN IV Hypoglycemia 11/20/17 10:00 12/20/17 09:59 11/20/17 10:42 Dextrose/Sodium Chloride 1,000 ml @ 75 mls/hr [id number] IV 11/20/17 11:45 12/20/17 11:44 11/21/17 01:14 Lorazepam (Ativan 2mg/ml 1ml) 2 mg EVERY 2 HOURS PRN IV For Anxiety 11/18/17 23:00 11/25/17 22:59 11/20/17 03:42 Morphine Sulfate (Morphine Sulfate) 4 mg EVERY 4 HOURS PRN IVP Severe Pain (Pain Scale 7-10) 11/18/17 23:00 11/25/17 22:59 Norepinephrine Bitartrate 4 mg/ Dextrose 254 ml @ 0 mls/hr Q24H IV 11/18/17 23:00 12/18/17 22:59 Octreotide Acetate 500 mcg/ Sodium Chloride 500 ml @ 50 mls/hr Q10H IV 11/21/17 13:30 12/21/17 13:29 Ondansetron HCl (Zofran) 4 mg Q6H PRN IVP Nausea & Vomiting 11/18/17 23:00 12/18/17 22:59 Pantoprazole (Protonix) 40 mg DAILY IVP 11/19/17 09:00 12/19/17 08:59 11/21/17 09:25 Phytonadione 1 mg/ Dextrose 55.5 ml @ 222 mls/hr ONCE ONCE IVPB 11/21/17 13:30 11/21/17 13:44 Polyethylene Glycol (Miralax) 17 gm DAILYPRN PRN ORAL Constipation 11/18/17 23:00 12/18/17 22:59 Vancomycin HCl (Vanco rx to dose) 1 ea DAILY PRN MISC per protocol 11/19/17 03:45 12/19/17 03:44 Assessment/Plan Problem List: (1) Acute renal failure ICD Codes: N17.9 - Acute kidney failure, unspecified SNOMED: 27810114 (2) Severe sepsis Assessment & Plan: 52M critically ill with severe sepsis now in ARF needing urgent dialysis but has no access. Liver disease with coagulopathy. high risk but given nature of disease and current condition necessary. unfortunately no family, POA, next to kin. Consent obtained by two physician consent for life threatening condition. -plan for Dialysis venous access at bedside today. ICD Codes: A41.9 - Sepsis, unspecified organism; R65.20 - Severe sepsis without septic shock SNOMED: 08735740 Status: not improved Emanuel Lemus Nov 21, 2017 13:00
[2017-11-21] MEDS ORDERED: Heparin 1000 units/ml 1ml Vial ONE (13:19)
--- NOTE | 2017-11-21 13:28 | Operative Note - PDOC ---
Operative Note Operative Note Date of Operation/Procedure: Nov 21, 2017 Pre-op Diagnosis: severe sepsis with ARF requiring urgent dialysis Procedure: right femoral central venous DIALYSIS catheter insertion Operative Findings: consistent w/pre-op dx studies Surgeon: lazara Anesthesia: moderate sedation Specimen: none Complications: none Condition: stable Estimated Blood Loss: minimal Drains: none Implant(s) used?: Yes - Mahukar 12f 20cm two lumen dialysis venous catheter Indications for Procedure 52M severe sepsis with ARF requiring urgent dialysis for life saving therapy. Patient with no family or information. unfortunately cannot obtain consent from patient or anyone else. two physician consent obtained. plan for dialysis venous catheter insertion today followed by dialysis Description of Procedure The patient was lying in the supine position in the hospital bed. All persons involved were shielded with hairnets, facemasks and sterile gowns. With sterile- gloved hands the right femoral area was thoroughly sponged with chlorhexidine and allowed to dry. The area was draped with the large disposable sterile field provided in the kit. The femoral artery was palpated and avoided. A finder needle was advanced at a 45-degree angle toward the inguinal ligament until the syringe was seen to fill with venous blood. The needle was then held in place while the guide wire was advanced. The needle was then removed. A skin dilator was advanced over the guidewire and removed, then the dual-lumen 12f 20cm dialysis catheter was advanced over the guide wire into proper position. The guide wire was removed and discarded. The ports were aspirated which showed good blood return indicating proper position into the vein and then carefully flushed with normal saline then heparinized saline. The catheter was stabilized and sutured to the skin with 2-0 silk at 2 anchor ports. A sterile bio- occlusive dressing was placed over the catheter, including the insertion site. The patient tolerated the procedure well Emanuel Lemus Nov 21, 2017 13:28
[2017-11-21] MEDS ORDERED: Heparin 2000 units/Ns 1000ml IV ONE (13:30)
[2017-11-21] MEDS ORDERED: Phytonadione 1 MG in D5W 55 ML IVPB ONE (13:30)
[2017-11-21] MEDS: Octreotide Acetate 500 MCG in Sodium Chloride 500ML 499 ML IV SCH ×2 (14:28→23:19)
[2017-11-21 15:21] LABS: HEMATOCRIT 25.9 % (42.0-52.0); HEMOGLOBIN 8.2 G/DL (14.2-18.0); MEAN CORPUSCULAR VOLUME 82 FL (80-99); PLATELET COUNT 48 K/UL (150-450); RED BLOOD COUNT 3.17 M/UL (4.70-6.10); RED CELL DISTRIBUTION WIDTH 20.6 % (11.6-14.8); WHITE BLOOD COUNT 18.5 K/UL (4.8-10.8)
[2017-11-21 15:28] LABS: BASOPHILS % (AUTO) 1.1 % (0.0-2.0); EOSINOPHILS % (AUTO) 0.3 % (0.0-3.0); LYMPHOCYTES % (AUTO) 7.1 % (20.0-45.0); MONOCYTES % (AUTO) 3.7 % (1.0-10.0); NEUTROPHILS % (AUTO) 87.9 % (45.0-75.0)
[2017-11-21] MEDS: cefTRIAXone 2 GM in D5W 55 ML IVPB SCH (15:48)
[2017-11-21] MEDS: Albuterol/Ipratropium 3ml neb HHN PRN (22:01)
--- NOTE | 2017-11-21 22:17 | Cardiology Progress Note ---
Assessment/Plan Assessment/Plan The patient is seen and examined, full consult note is dictated. Objective Last 24 Hour Vital Signs Date Time Temp Pulse Resp B/P (MAP) Pulse Ox O2 Delivery O2 Flow Rate FiO2 11/21/17 22:02 91 31 100 Bi-pap 100 11/21/17 21:45 100 11/21/17 21:45 84 36 100 Bi-pap 100 11/21/17 21:03 93 26 100 11/21/17 20:00 100 11/21/17 19:45 Mechanical Ventilator 100 11/21/17 19:15 98.8 101 44 93/50 Mechanical Ventilator 87 11/21/17 19:00 99.7 103 31 69/36 82 Mechanical Ventilator 100 11/21/17 18:48 101 32 100 11/21/17 18:00 99.6 101 30 78/35 83 Mechanical Ventilator 100 11/21/17 17:07 102 42 100 11/21/17 17:00 98.5 101 31 100/42 80 Mechanical Ventilator 100 11/21/17 16:30 Mechanical Ventilator 100 11/21/17 16:30 98.6 100 44 98/42 88 Mechanical Ventilator 100 11/21/17 16:02 104 37 100 11/21/17 16:00 100 11/21/17 16:00 99.5 97 30 98/42 78 Mechanical Ventilator 100 11/21/17 16:00 104 11/21/17 15:00 99.3 106 39 100/37 72 Mechanical Ventilator 100 11/21/17 14:00 98.7 106 23 105/44 79 Mechanical Ventilator 100 11/21/17 13:33 111 44 100 11/21/17 13:01 98.4 106 23 104/39 85 Mechanical Ventilator 100 11/21/17 12:00 100 11/21/17 12:00 98.1 106 30 101/41 91 Mechanical Ventilator 100 11/21/17 12:00 111 11/21/17 11:09 107 30 100 11/21/17 11:00 99.0 107 16 101/41 91 Mechanical Ventilator 100 11/21/17 10:00 98.7 114 43 124/45 90 Mechanical Ventilator 100 11/21/17 09:22 111 41 100 11/21/17 09:00 99.3 110 23 100/44 88 Mechanical Ventilator 100 11/21/17 08:00 114 11/21/17 08:00 98.9 114 21 109/45 87 Mechanical Ventilator 100 11/21/17 08:00 100 11/21/17 07:19 117 41 100 11/21/17 07:00 98.6 117 42 118/48 78 Mechanical Ventilator 100 11/21/17 06:00 98.6 115 41 119/52 78 Mechanical Ventilator 100 11/21/17 05:04 112 42 100 11/21/17 05:00 98.1 112 45 125/58 79 11/21/17 04:00 100 11/21/17 04:00 108 11/21/17 04:00 98.6 108 43 113/48 88 11/21/17 03:02 107 43 100 11/21/17 03:00 99.0 108 40 102/53 91 11/21/17 02:00 98.7 108 41 102/53 91 11/21/17 01:24 110 39 100 11/21/17 01:00 98.0 102 40 99/44 90 Mechanical Ventilator 100 11/21/17 00:00 97.8 102 41 107/53 84 Mechanical Ventilator 100 11/20/17 23:00 98.2 106 41 117/66 85 Mechanical Ventilator 100 11/20/17 23:00 117/66 11/20/17 22:59 103 40 100 Intake and Output 11/20/17 11/21/17 19:00 07:00 Intake Total 998.75 ml 1270 ml Output Total 305 ml 110 ml Balance 693.75 ml 1160 ml IV Total 998.75 ml 900 ml Blood Product 370 ml Output Urine Total 305 ml 30 ml Gastric Drainage Total 80 ml # Bowel Movements 1 2 Laboratory Tests Test 11/21/17 04:26 11/21/17 07:30 11/21/17 14:25 11/21/17 21:15 White Blood Count 17.0 K/UL (4.8-10.8) #H 18.5 K/UL (4.8-10.8) H Red Blood Count 3.33 M/UL (4.70-6.10) L 3.17 M/UL (4.70-6.10) L Hemoglobin 8.5 G/DL (14.2-18.0) L 8.2 G/DL (14.2-18.0) L Hematocrit 26.9 % (42.0-52.0) L 25.9 % (42.0-52.0) L Mean Corpuscular Volume 81 FL (80-99) 82 FL (80-99) Mean Corpuscular Hemoglobin 25.5 PG (27.0-31.0) L 26.0 PG (27.0-31.0) L Mean Corpuscular Hemoglobin Concent 31.7 G/DL (32.0-36.0) L 31.8 G/DL (32.0-36.0) L Red Cell Distribution Width 20.1 % (11.6-14.8) H 20.6 % (11.6-14.8) H Platelet Count 49 K/UL (150-450) L 48 K/UL (150-450) L Mean Platelet Volume 11.2 FL (6.5-10.1) H 11.5 FL (6.5-10.1) H Neutrophils (%) (Auto) % (45.0-75.0) 87.9 % (45.0-75.0) H Lymphocytes (%) (Auto) % (20.0-45.0) 7.1 % (20.0-45.0) L Monocytes (%) (Auto) % (1.0-10.0) 3.7 % (1.0-10.0) Eosinophils (%) (Auto) % (0.0-3.0) 0.3 % (0.0-3.0) Basophils (%) (Auto) % (0.0-2.0) 1.1 % (0.0-2.0) Differential Total Cells Counted 100 Neutrophils % (Manual) 77 % (45-75) H Lymphocytes % (Manual) 7 % (20-45) L Monocytes % (Manual) 6 % (1-10) Eosinophils % (Manual) 0 % (0-3) Basophils % (Manual) 0 % (0-2) Metamyelocytes % 1 % (0-0) H Band Neutrophils 9 % (0-8) H Nucleated Red Blood Cells 29 /100 WBC Platelet Estimate Decreased L Platelet Morphology Normal Hypochromasia 2+ Anisocytosis 2+ Sodium Level 139 MMOL/L (136-145) Potassium Level 4.2 MMOL/L (3.5-5.1) Chloride Level 107 MMOL/L (98-107) Carbon Dioxide Level 19 MMOL/L (21-32) L Anion Gap 13 mmol/L (5-15) Blood Urea Nitrogen 64 mg/dL (7-18) H Creatinine 5.8 MG/DL (0.55-1.30) H Estimat Glomerular Filtration Rate 10.4 mL/min (>60) Glucose Level 120 MG/DL (74-106) H Uric Acid 8.1 MG/DL (2.6-7.2) H Calcium Level 6.6 MG/DL (8.5-10.1) L Phosphorus Level 6.5 MG/DL (2.5-4.9) H Magnesium Level 2.2 MG/DL (1.8-2.4) Total Bilirubin 5.0 MG/DL (0.2-1.0) H Direct Bilirubin 4.0 MG/DL (0.0-0.3) H Aspartate Amino Transf (AST/SGOT) 445 U/L (15-37) H Alanine Aminotransferase (ALT/SGPT) 100 U/L (12-78) H Alkaline Phosphatase 43 U/L (46-116) L Ammonia 51 umol/L (11-32) H Troponin I 1.564 ng/mL (0.000-0.056) C-Reactive Protein, Quantitative 12.4 mg/dL (0.00-0.90) H Pro-B-Type Natriuretic Peptide 10179 pg/mL (0-125) H Total Protein 6.2 G/DL (6.4-8.2) L Albumin 1.4 G/DL (3.4-5.0) L Globulin 4.8 g/dL Albumin/Globulin Ratio 0.3 (1.0-2.7) L HIV (1&2) Antibody Rapid Negative (NEGATIVE) Arterial Blood pH 7.194 (7.350-7.450) Arterial Blood Partial Pressure CO2 45.0 mmHg (35.0-45.0) Arterial Blood Partial Pressure O2 45.8 mmHg (75.0-100.0) Arterial Blood HCO3 17.0 mmol/L (22.0-26.0) L Arterial Blood Oxygen Saturation 55.6 % (92.0-98.0) L Arterial Blood Base Excess -10.6 Sigifredo Test Positive Reticulocyte Count Pending PTT Mixing Study Pending APTT Patient/Control Mix Pending Mix PTT Incubation Time Pending Mix PTT Normal/Saline 1:1 Immediate Pending Thrombin Time Normal Plasma Pending Fibrinogen Pending Ferritin Pending Lactate Dehydrogenase Pending Vitamin B12 Level Pending Folate Pending Thyroid Stimulating Hormone (TSH) Pending Hepatitis A IgM Antibody Pending Hepatitis B Surface Antigen Pending Hepatitis B Core IgM Antibody Pending Hepatitis C Antibody Pending Microbiology Date/Time Source Procedure Growth Status 11/19/17 02:15 Nasal Nares MRSA Culture - Final NO METHICILLIN RESISTANT STAPH AUREUS... Complete SHAUNA FORMAN Nov 21, 2017 22:17
[2017-11-21 22:20] LABS: FERRITIN 483 NG/ML (8-388)
[2017-11-21] MEDS ORDERED: Tubing IV Blood Pump IV ONE (22:43)
[2017-11-21] MEDS ORDERED: Tubing IV Secondary IV ONE (22:43)
[2017-11-21] MEDS ORDERED: D5 1/2NS 1000ml IV ONE (22:43)
[2017-11-21] MEDS ORDERED: NS 275ml ONE (22:43)
[2017-11-21 22:57] LABS: LACTATE DEHYDROGENASE 1719 U/L (81-234)
[2017-11-22] VITALS (88 sets, daily range): BP systolic 63–114; BP diastolic 25–57
--- NOTE | 2017-11-22 03:00 | Consultation ---
DATE OF CONSULTATION: 11/21/2017 CARDIOLOGY CONSULTATION CONSULTING PHYSICIAN: Mandeep Love M.D. ATTENDING/REFERRING PHYSICIAN: Nehemiah Lemus D.O. REASON FOR CONSULTATION: Management of tachycardia. HISTORY OF PRESENT ILLNESS: The patient is a very unfortunate 52-year-old gentleman, who presents to the hospital with shortness of breath for about 3 weeks. At this time, he is intubated due to respiratory failure and multiorgan failure including acute tubular necrosis, currently on hemodialysis, encephalopathy, liver failure with coagulopathy, and INR of 2.2. Apparently, the patient had intermittent abdominal pain as well as generalized body pain. He was dropped in the emergency department at the time of arrival to the hospital by relatives. Initial blood pressure was 120/52 mmHg, heart rate of 122. A 12-lead electrocardiogram had shown sinus tachycardia, rate of [address] and T-wave abnormalities, and QT prolongation. He was admitted to intensive care unit of [facility]. The patient is seen in [facility] Intensive Care Unit for evaluation of tachycardia. PAST MEDICAL HISTORY: None. ALLERGIES: No known drug allergies. PAST SURGICAL HISTORY: None. FAMILY HISTORY: Unknown. MEDICATIONS: List of medication, unknown. REVIEW OF SYSTEMS: Cannot be obtained as the patient is intubated. PHYSICAL EXAMINATION: VITAL SIGNS: Blood pressure was 120/52, respirations 24, pulse of 122, temperature 98.2 degrees Fahrenheit, and O2 saturation 91% on room air. GENERAL: The patient is a very unfortunate 52-year-old gentleman, who is currently intubated with NG tube in place, unresponsive. HEENT: Atraumatic, normocephalic. Anicteric. Pupils are equal, round, and reactive to light and accommodation. Extraocular muscles intact. NECK: JVP cannot be assessed due to intubation. No carotid bruit. CARDIOVASCULAR SYSTEM: Normal S1, S2. Regular rate and rhythm. Tachycardic. No murmurs, gallops, or rubs. LUNGS: Diminished breath sounds especially in the left lung. ABDOMEN: Distended. No hepatosplenomegaly. Diminished breath sounds. EXTREMITIES: There is 1 to 2+ bilateral lower extremity edema. LABORATORY FINDINGS: At the time of arrival to the hospital, WBC was 4.8, hemoglobin of 4.7, hematocrit 17.6, and platelet count 119,000; there was 32% bandemia. Sodium was 138, potassium was 3.5, chloride 103, bicarbonate 9, BUN of 26, creatinine 2.4, glucose is 43, and calcium is 7.0. Troponin I is 0.078. AST was 109. ProBNP was 12,549. Chest x-ray showed consolidation of most of the left lung most likely represents pneumonia, opacities in the right upper lobe could represent focal patchy infiltration. ASSESSMENT AND PLAN: The patient is a very unfortunate 52-year-old gentleman, who presents to the hospital with sepsis, bandemia which is followed by septic shock. The patient is currently on Levophed drip. The patient has multiorgan failure including acute tubular necrosis, planning for hemodialysis, coagulopathy with an INR of 2.2 on no warfarin therapy, and there is also encephalopathy and respiratory failure. He had severe metabolic acidosis with lactic acidemia. On arrival to the emergency department, his pH was 6.8 with pCO2 of 76.7 and pO2 of 75.5, consistent with hypercapnic hypoxic respiratory failure likely due to extensive pneumonia. The patient is seen in cardiology consultation at the request of Dr. Lemus. 1. Sinus tachycardia, most likely due to above including sepsis, septic shock, and multiorgan failure. A 2D echocardiography was done on this patient and this revealed hyperdynamic left ventricular systolic function with left ventricular ejection fraction of about 75%. The intracardiac filling pressures are within normal limits. 2. Respiratory failure. 3. Multiorgan failure as mentioned above. Poor prognosis. 4. Anemia, status post blood transfusion. 5. Coagulopathy, poor prognostic factor for liver failure. Total amount of time spent in evaluation of this patient in the intensive care unit of [facility] was 45 minutes. I would like to thank, Dr. Lemus, for courtesy of this consultation. Mandeep Love M.D. DR: Suman JOB#: [id number] CC:
[2017-11-22] MEDS: Albuterol/Ipratropium 3ml neb HHN PRN (03:04)
[2017-11-22] MEDS: D5 1/2NS 1,000 ML IV SCH ×2 (03:27→17:18)
[2017-11-22] MEDS ORDERED: Levophed 4mg/4mL Inj IV ONE (05:06)
--- NOTE | 2017-11-22 08:36 | General Progress Note ---
Assessment/Plan Problem List: (1) Pleural effusion ICD Codes: J90 - Pleural effusion, not elsewhere classified SNOMED: 49327035, 911069784 (2) Lactic acid acidosis ICD Codes: E87.2 - Acidosis SNOMED: 21382676, 664690660 (3) Bilateral pneumonia ICD Codes: J18.9 - Pneumonia, unspecified organism SNOMED: 399044089 (4) Acute respiratory failure with hypoxia ICD Codes: J96.01 - Acute respiratory failure with hypoxia SNOMED: 27609953, 565576400 (5) Severe anemia ICD Codes: D64.9 - Anemia, unspecified SNOMED: 005807025, 066956498 (6) Severe sepsis ICD Codes: A41.9 - Sepsis, unspecified organism; R65.20 - Severe sepsis without septic shock SNOMED: 42302715 Status: unchanged Assessment/Plan vent abx neph f/u bp control cbc bmp in am Subjective Constitutional: Reports: weakness Allergies: Coded Allergies: No Known Allergies (Unverified , 11/18/17) All Systems: reviewed and negative except above Subjective intub sedated in icu Objective Last 24 Hour Vital Signs Date Time Temp Pulse Resp B/P (MAP) Pulse Ox O2 Delivery O2 Flow Rate FiO2 11/22/17 07:45 100.0 105 41 107/40 84 Mechanical Ventilator 100 11/22/17 07:30 100.0 108 34 93/34 74 Mechanical Ventilator 100 11/22/17 07:15 99.8 103 39 89/33 78 Mechanical Ventilator 100 11/22/17 07:06 106 35 100 11/22/17 07:00 105 33 87/48 74 Mechanical Ventilator 100 11/22/17 07:00 89/33 11/22/17 06:30 104 33 88/36 76 Mechanical Ventilator 100 11/22/17 06:15 104 33 88/36 79 Mechanical Ventilator 100 11/22/17 06:00 96/37 11/22/17 06:00 106 33 96/37 72 Mechanical Ventilator 100 11/22/17 05:45 104 34 96/37 78 Mechanical Ventilator 100 11/22/17 05:30 105 34 96/36 76 Mechanical Ventilator 100 11/22/17 05:16 91/33 11/22/17 05:15 104 33 88/34 80 Mechanical Ventilator 100 11/22/17 05:00 104 30 91/33 73 Mechanical Ventilator 100 11/22/17 05:00 91/33 11/22/17 04:50 107 38 100 11/22/17 04:45 101 24 89/33 66 Mechanical Ventilator 100 11/22/17 04:30 101 26 81/27 53 Mechanical Ventilator 100 11/22/17 04:15 107 24 88/30 88 Mechanical Ventilator 100 11/22/17 04:00 108 11/22/17 04:00 98.4 97 28 105/35 41 Mechanical Ventilator 100 11/22/17 04:00 105/35 11/22/17 04:00 100 11/22/17 03:45 97 27 86/33 73 Mechanical Ventilator 100 11/22/17 03:30 97 27 89/35 66 Mechanical Ventilator 100 11/22/17 03:15 97 27 93/32 88 Mechanical Ventilator 100 11/22/17 03:00 97 27 101/32 88 Mechanical Ventilator 100 11/22/17 03:00 101/32 11/22/17 02:59 99 28 100 11/22/17 02:45 100 29 79/35 81 Mechanical Ventilator 100 11/22/17 02:30 97 27 89/33 88 Mechanical Ventilator 100 11/22/17 02:30 99 28 80 Bi-pap 100 11/22/17 02:20 100 11/22/17 02:20 100 27 100 Bi-pap 80 11/22/17 02:15 97 27 74/31 86 Mechanical Ventilator 100 11/22/17 02:00 82/32 11/22/17 02:00 97 27 82/32 90 Mechanical Ventilator 100 11/22/17 01:45 99 25 75/28 92 Mechanical Ventilator 100 11/22/17 01:30 98 26 77/30 94 Mechanical Ventilator 100 11/22/17 01:15 99 26 77/30 95 Mechanical Ventilator 100 11/22/17 01:00 101 26 82/29 97 Mechanical Ventilator 100 11/22/17 00:30 101 29 86/33 95 Mechanical Ventilator 100 11/22/17 00:21 108 28 100 11/22/17 00:15 72 29 86/33 91 Mechanical Ventilator 100 11/22/17 00:15 86/33 11/22/17 00:00 66/29 11/22/17 00:00 98.8 81 29 66/29 66 Mechanical Ventilator 100 11/22/17 00:00 100 11/21/17 23:45 102 34 103/35 56 Mechanical Ventilator 100 11/21/17 23:30 102 34 104/38 54 Mechanical Ventilator 100 11/21/17 23:15 117/40 11/21/17 23:15 105 37 117/40 57 Mechanical Ventilator 100 11/21/17 23:04 104 11/21/17 23:03 101 41 100 11/21/17 23:00 100 38 115/41 79 Mechanical Ventilator 100 11/21/17 22:45 94 32 88/42 82 Mechanical Ventilator 100 11/21/17 22:42 76/38 11/21/17 22:30 88 26 76/32 91 Mechanical Ventilator 100 11/21/17 22:02 91 31 100 Bi-pap 100 11/21/17 22:00 95 26 89/37 84 Mechanical Ventilator 100 11/21/17 21:45 100 11/21/17 21:45 84 36 100 Bi-pap 100 11/21/17 21:30 95 28 84/39 79 Mechanical Ventilator 100 11/21/17 21:03 93 26 100 11/21/17 21:00 93 28 80/35 88 Mechanical Ventilator 100 11/21/17 20:00 100 11/21/17 20:00 99.8 96 14 94/50 81 Mechanical Ventilator 100 11/21/17 19:47 96 11/21/17 19:45 Mechanical Ventilator 100 11/21/17 19:15 98.8 101 44 93/50 Mechanical Ventilator 87 11/21/17 19:00 99.7 103 31 69/36 82 Mechanical Ventilator 100 11/21/17 18:48 101 32 100 11/21/17 18:00 99.6 101 30 78/35 83 Mechanical Ventilator 100 11/21/17 17:07 102 42 100 11/21/17 17:00 98.5 101 31 100/42 80 Mechanical Ventilator 100 11/21/17 16:30 Mechanical Ventilator 100 11/21/17 16:30 98.6 100 44 98/42 88 Mechanical Ventilator 100 11/21/17 16:02 104 37 100 11/21/17 16:00 100 11/21/17 16:00 99.5 97 30 98/42 78 Mechanical Ventilator 100 11/21/17 16:00 104 11/21/17 15:00 99.3 106 39 100/37 72 Mechanical Ventilator 100 11/21/17 14:00 98.7 106 23 105/44 79 Mechanical Ventilator 100 11/21/17 13:33 111 44 100 11/21/17 13:01 98.4 106 23 104/39 85 Mechanical Ventilator 100 11/21/17 12:00 100 11/21/17 12:00 98.1 106 30 101/41 91 Mechanical Ventilator 100 11/21/17 12:00 111 11/21/17 11:09 107 30 100 11/21/17 11:00 99.0 107 16 101/41 91 Mechanical Ventilator 100 11/21/17 10:00 98.7 114 43 124/45 90 Mechanical Ventilator 100 11/21/17 09:22 111 41 100 11/21/17 09:00 99.3 110 23 100/44 88 Mechanical Ventilator 100 Intake and Output 11/21/17 11/22/17 19:00 07:00 Intake Total 1326 ml 1816.75 ml Output Total 50 ml 45 ml Balance 1276 ml 1771.75 ml IV Total 1326 ml 1816.75 ml Output Urine Total 50 ml 45 ml # Bowel Movements 2 5 Laboratory Tests 11/21/17 14:25: White Blood Count 18.5H, Red Blood Count 3.17L, Hemoglobin 8.2L, Hematocrit 25.9L, Mean Corpuscular Volume 82, Mean Corpuscular Hemoglobin 26.0L, Mean Corpuscular Hemoglobin Concent 31.8L, Red Cell Distribution Width 20.6H, Platelet Count 48L, Mean Platelet Volume 11.5H, Neutrophils (%) (Auto) 87.9H, Lymphocytes (%) (Auto) 7.1L, Monocytes (%) (Auto) 3.7, Eosinophils (%) (Auto) 0.3, Basophils (%) (Auto) 1.1 11/21/17 21:15: Reticulocyte Count 0.4, PTT Mixing Study [Pending], APTT Patient/Control Mix [ Pending], Mix PTT Incubation Time [Pending], Mix PTT Normal/Saline 1:1 Immediate [Pending], Thrombin Time Normal Plasma [Pending], Fibrinogen 175L, Ferritin 483H, Lactate Dehydrogenase 1719H, Vitamin B12 Level > 2000H, Folate 8.9, Thyroid Stimulating Hormone (TSH) 0.083L, Hepatitis A IgM Antibody [Pending ], Hepatitis B Surface Antigen [Pending], Hepatitis B Core IgM Antibody [Pending ], Hepatitis C Antibody [Pending] Height (Feet): 5 Height (Inches): 5.00 Weight (Pounds): 211 General Appearance: lethargic EENT: normal ENT inspection Neck: normal alignment Cardiovascular: normal peripheral pulses, normal rate, regular rhythm Respiratory/Chest: decreased breath sounds Abdomen: normal bowel sounds, non tender, soft Extremities: normal inspection Edema: no edema noted Arm (L), no edema noted Arm (R), no edema noted Leg (L), no edema noted Leg (R), no edema noted Pedal (L), no edema noted Pedal (R), no edema noted Generalized Neurologic: motor weakness Skin: normal pigmentation, warm/dry PILAR TABOR Nov 22, 2017 08:36
[2017-11-22] MEDS: Pantoprazole Inj IVP SCH (09:00)
[2017-11-22 09:29] LABS: HEMATOCRIT 27.2 % (42.0-52.0); HEMOGLOBIN 8.4 G/DL (14.2-18.0); MEAN CORPUSCULAR VOLUME 82 FL (80-99); PLATELET COUNT 30 K/UL (150-450); RED BLOOD COUNT 3.31 M/UL (4.70-6.10); RED CELL DISTRIBUTION WIDTH 20.8 % (11.6-14.8)
--- NOTE | 2017-11-22 09:31 | Infectious Diseases Prog Note ---
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 Cardiovascular: Reports: other - on Levophed, HD lineplaced Gastrointestinal/Abdominal: Reports: other - GI bleeding Genitourinary: Reports: other - stated on HD Allergies: Coded Allergies: No Known Allergies (Unverified , 11/18/17) Objective Vital Signs Last 24 Hour Vital Signs Date Time Temp Pulse Resp B/P (MAP) Pulse Ox O2 Delivery O2 Flow Rate FiO2 11/22/17 09:09 98 40 100 11/22/17 08:45 107 38 114/57 75 Mechanical Ventilator 100 11/22/17 08:30 104 40 110/41 79 Mechanical Ventilator 100 11/22/17 08:15 110 40 114/35 81 Mechanical Ventilator 100 11/22/17 08:00 99.9 101 33 108/48 72 Mechanical Ventilator 100 11/22/17 08:00 100 11/22/17 08:00 108/48 11/22/17 08:00 101 11/22/17 07:45 100.0 105 41 107/40 84 Mechanical Ventilator 100 11/22/17 07:30 100.0 108 34 93/34 74 Mechanical Ventilator 100 11/22/17 07:15 99.8 103 39 89/33 78 Mechanical Ventilator 100 11/22/17 07:06 106 35 100 11/22/17 07:00 105 33 87/48 74 Mechanical Ventilator 100 11/22/17 07:00 89/33 11/22/17 06:30 104 33 88/36 76 Mechanical Ventilator 100 11/22/17 06:15 104 33 88/36 79 Mechanical Ventilator 100 11/22/17 06:00 96/37 11/22/17 06:00 106 33 96/37 72 Mechanical Ventilator 100 11/22/17 05:45 104 34 96/37 78 Mechanical Ventilator 100 11/22/17 05:30 105 34 96/36 76 Mechanical Ventilator 100 11/22/17 05:16 91/33 11/22/17 05:15 104 33 88/34 80 Mechanical Ventilator 100 11/22/17 05:00 104 30 91/33 73 Mechanical Ventilator 100 11/22/17 05:00 91/11/22/17 04:50 107 38 100 11/22/17 04:45 101 24 89/33 66 Mechanical Ventilator 100 11/22/17 04:30 101 26 81/27 53 Mechanical Ventilator 100 11/22/17 04:15 107 24 88/30 88 Mechanical Ventilator 100 11/22/17 04:00 108 11/22/17 04:00 98.4 97 28 105/35 41 Mechanical Ventilator 100 11/22/17 04:00 105/35 11/22/17 04:00 100 11/22/17 03:45 97 27 86/33 73 Mechanical Ventilator 100 11/22/17 03:30 97 27 89/35 66 Mechanical Ventilator 100 11/22/17 03:15 97 27 93/32 88 Mechanical Ventilator 100 11/22/17 03:00 97 27 101/32 88 Mechanical Ventilator 100 11/22/17 03:00 101/32 11/22/17 02:59 99 28 100 11/22/17 02:45 100 29 79/35 81 Mechanical Ventilator 100 11/22/17 02:30 97 27 89/33 88 Mechanical Ventilator 100 11/22/17 02:30 99 28 80 Bi-pap 100 11/22/17 02:20 100 11/22/17 02:20 100 27 100 Bi-pap 80 11/22/17 02:15 97 27 74/31 86 Mechanical Ventilator 100 11/22/17 02:00 82/32 11/22/17 02:00 97 27 82/32 90 Mechanical Ventilator 100 11/22/17 01:45 99 25 75/28 92 Mechanical Ventilator 100 11/22/17 01:30 98 26 77/30 94 Mechanical Ventilator 100 11/22/17 01:15 99 26 77/30 95 Mechanical Ventilator 100 11/22/17 01:00 101 26 82/29 97 Mechanical Ventilator 100 11/22/17 00:30 101 29 86/33 95 Mechanical Ventilator 100 11/22/17 00:21 108 28 100 11/22/17 00:15 72 29 86/33 91 Mechanical Ventilator 100 11/22/17 00:15 86/33 11/22/17 00:00 66/29 11/22/17 00:00 98.8 81 29 66/29 66 Mechanical Ventilator 100 11/22/17 00:00 100 11/21/17 23:45 102 34 103/35 56 Mechanical Ventilator 100 11/21/17 23:30 102 34 104/38 54 Mechanical Ventilator 100 11/21/17 23:15 117/40 11/21/17 23:15 105 37 117/40 57 Mechanical Ventilator 100 11/21/17 23:04 104 11/21/17 23:03 101 41 100 11/21/17 23:00 100 38 115/41 79 Mechanical Ventilator 100 11/21/17 22:45 94 32 88/42 82 Mechanical Ventilator 100 11/21/17 22:42 76/38 11/21/17 22:30 88 26 76/32 91 Mechanical Ventilator 100 11/21/17 22:02 91 31 100 Bi-pap 100 11/21/17 22:00 95 26 89/37 84 Mechanical Ventilator 100 11/21/17 21:45 100 11/21/17 21:45 84 36 100 Bi-pap 100 11/21/17 21:30 95 28 84/39 79 Mechanical Ventilator 100 11/21/17 21:03 93 26 100 11/21/17 21:00 93 28 80/35 88 Mechanical Ventilator 100 11/21/17 20:00 100 11/21/17 20:00 99.8 96 14 94/50 81 Mechanical Ventilator 100 11/21/17 19:47 96 11/21/17 19:45 Mechanical Ventilator 100 11/21/17 19:15 98.8 101 44 93/50 Mechanical Ventilator 87 11/21/17 19:00 99.7 103 31 69/36 82 Mechanical Ventilator 100 11/21/17 18:48 101 32 100 11/21/17 18:00 99.6 101 30 78/35 83 Mechanical Ventilator 100 11/21/17 17:07 102 42 100 11/21/17 17:00 98.5 101 31 100/42 80 Mechanical Ventilator 100 11/21/17 16:30 Mechanical Ventilator 100 11/21/17 16:30 98.6 100 44 98/42 88 Mechanical Ventilator 100 11/21/17 16:02 104 37 100 11/21/17 16:00 100 11/21/17 16:00 99.5 97 30 98/42 78 Mechanical Ventilator 100 11/21/17 16:00 104 11/21/17 15:00 99.3 106 39 100/37 72 Mechanical Ventilator 100 11/21/17 14:00 98.7 106 23 105/44 79 Mechanical Ventilator 100 11/21/17 13:33 111 44 100 1/6/18 13:01 98.4 106 23 104/39 85 Mechanical Ventilator 100 11/21/17 12:00 100 11/21/17 12:00 98.1 106 30 101/41 91 Mechanical Ventilator 100 11/21/17 12:00 111 11/21/17 11:09 107 30 100 11/21/17 11:00 99.0 107 16 101/41 91 Mechanical Ventilator 100 11/21/17 10:00 98.7 114 43 124/45 90 Mechanical Ventilator 100 Height (Feet): 5 Height (Inches): 5.00 Weight (Pounds): 211 HEENT: other - orally intubated Respiratory/Chest: lungs clear, respiratory distress, other - on ventilator Cardiovascular: tachycardia, other - R femoral Jose L's catheter Abdomen: soft, non tender, other - orogastric tube tosuction Extremities: other - generalized edema Neurologic/Psychiatric: unresponsiveness Microbiology Date/Time Source Procedure Growth Status 11/20/17 23:30 Stool Clostridium difficile Toxin Assay - Final Complete Laboratory Tests Test 11/21/17 14:25 11/21/17 21:15 White Blood Count 18.5 K/UL (4.8-10.8) H Red Blood Count 3.17 M/UL (4.70-6.10) L Hemoglobin 8.2 G/DL (14.2-18.0) L Hematocrit 25.9 % (42.0-52.0) L Mean Corpuscular Volume 82 FL (80-99) Mean Corpuscular Hemoglobin 26.0 PG (27.0-31.0) L Mean Corpuscular Hemoglobin Concent 31.8 G/DL (32.0-36.0) L Red Cell Distribution Width 20.6 % (11.6-14.8) H Platelet Count 48 K/UL (150-450) L Mean Platelet Volume 11.5 FL (6.5-10.1) H Neutrophils (%) (Auto) 87.9 % (45.0-75.0) H Lymphocytes (%) (Auto) 7.1 % (20.0-45.0) L Monocytes (%) (Auto) 3.7 % (1.0-10.0) Eosinophils (%) (Auto) 0.3 % (0.0-3.0) Basophils (%) (Auto) 1.1 % (0.0-2.0) Reticulocyte Count 0.4 % (0.0-2.0) PTT Mixing Study Pending APTT Patient/Control Mix Pending Mix PTT Incubation Time Pending Mix PTT Normal/Saline 1:1 Immediate Pending Thrombin Time Normal Plasma Pending Fibrinogen 175 mg/dL (200-400) L Ferritin 483 NG/ML (8-388) H Lactate Dehydrogenase 1719 U/L (81-234) H Vitamin B12 Level > 2000 PG/ML (193-986) H Folate 8.9 NG/ML (8.6-58.9) Thyroid Stimulating Hormone (TSH) 0.083 uiU/mL (0.358-3.740) Hepatitis A IgM Antibody Pending Hepatitis B Surface Antigen Pending Hepatitis B Core IgM Antibody Pending Hepatitis C Antibody Pending Current Medications Medications (Trade) Dose Ordered Sig/Clarisse Route PRN Reason Start Time Stop Time Status Last Admin Dose Admin Acetaminophen (Tylenol) 650 mg Q4H PRN ORAL fever 11/18/17 23:00 12/18/17 22:59 Acetaminophen (Tylenol) 650 mg Q4H PRN RECTAL Mild Pain (Pain Scale 1-3) 11/19/17 20:15 12/19/17 20:14 11/19/17 20:20 Albuterol/ Ipratropium (Albuterol/ Ipratropium) 3 ml EVERY 4 HOURS PRN HHN Shortness of Breath 11/18/17 23:00 11/23/17 22:59 11/22/17 03:04 Ceftriaxone Sodium 2 gm/ Dextrose 55 ml @ 110 mls/hr Q24H IVPB 11/21/17 15:30 11/28/17 15:29 11/21/17 15:48 Dextrose (Dextrose 50%) 50 ml PRN PRN IV Hypoglycemia 11/20/17 10:00 12/20/17 09:59 11/20/17 10:42 Dextrose/Sodium Chloride 1,000 ml @ 75 mls/hr [id number] IV 11/20/17 11:45 12/20/17 11:44 11/22/17 03:27 Lorazepam (Ativan 2mg/ml 1ml) 2 mg EVERY 2 HOURS PRN IV For Anxiety 11/18/17 23:00 11/25/17 22:59 11/20/17 03:42 Morphine Sulfate (Morphine Sulfate) 4 mg EVERY 4 HOURS PRN IVP Severe Pain (Pain Scale 7-10) 11/18/17 23:00 11/25/17 22:59 Norepinephrine Bitartrate 4 mg/ Dextrose 254 ml @ 0 mls/hr Q24H IV 11/18/17 23:00 12/18/17 22:59 11/22/17 05:16 Octreotide Acetate 500 mcg/ Sodium Chloride 500 ml @ 50 mls/hr Q10H IV 11/21/17 13:30 12/21/17 13:29 11/21/17 23:19 Ondansetron HCl (Zofran) 4 mg Q6H PRN IVP Nausea & Vomiting 11/18/17 23:00 12/18/17 22:59 11/21/17 23:19 Pantoprazole (Protonix) 40 mg DAILY IVP 11/19/17 09:00 12/19/17 08:59 11/22/17 09:00 Polyethylene Glycol (Miralax) 17 gm DAILYPRN PRN ORAL Constipation 11/18/17 23:00 12/18/17 22:59 SHELDON TSE Nov 22, 2017 09:31
[2017-11-22 09:33] LABS: WHITE BLOOD COUNT 24.6 K/UL (4.8-10.8)
[2017-11-22 09:56] LABS: INR 1.8 (0.9-1.1)
--- NOTE | 2017-11-22 10:01 | Nephrology Progress Note ---
Assessment/Plan Problem List: (1) Acute respiratory failure with hypoxia (2) Acute renal failure Assessment Acute renal failure ? due to sepsis Acute respiratory failure with hypoxia Lactic acid acidosis Severe anemia Pleural effusion Bilateral pneumonia Severe sepsis Severe HypoAlbuminemai , 3+ Proteinuria bleeding diathesis Plan Plan: dialysed 11/21 labs today pending discussed with RN Monitor renal parameters Avoid nephrotoxics as possible hemodynamic support cortisol level per orders poor prognosis Subjective ROS Limited/Unobtainable: Yes Objective Objective Last 24 Hour Vital Signs Date Time Temp Pulse Resp B/P (MAP) Pulse Ox O2 Delivery O2 Flow Rate FiO2 11/22/17 09:09 98 40 100 11/22/17 08:45 107 38 114/57 75 Mechanical Ventilator 100 11/22/17 08:30 104 40 110/41 79 Mechanical Ventilator 100 11/22/17 08:15 110 40 114/35 81 Mechanical Ventilator 100 11/22/17 08:00 99.9 101 33 108/48 72 Mechanical Ventilator 100 11/22/17 08:00 100 11/22/17 08:00 108/48 11/22/17 08:00 101 11/22/17 07:45 100.0 105 41 107/40 84 Mechanical Ventilator 100 11/22/17 07:30 100.0 108 34 93/34 74 Mechanical Ventilator 100 11/22/17 07:15 99.8 103 39 89/33 78 Mechanical Ventilator 100 11/22/17 07:06 106 35 100 11/22/17 07:00 105 33 87/48 74 Mechanical Ventilator 100 11/22/17 07:00 89/33 11/22/17 06:30 104 33 88/36 76 Mechanical Ventilator 100 11/22/17 06:15 104 33 88/36 79 Mechanical Ventilator 100 11/22/17 06:00 96/37 11/22/17 06:00 106 33 96/37 72 Mechanical Ventilator 100 11/22/17 05:45 104 34 96/37 78 Mechanical Ventilator 100 11/22/17 05:30 105 34 96/36 76 Mechanical Ventilator 100 11/22/17 05:16 91/33 11/22/17 05:15 104 33 88/34 80 Mechanical Ventilator 100 11/22/17 05:00 104 30 91/33 73 Mechanical Ventilator 100 11/22/17 05:00 91/33 11/22/17 04:50 107 38 100 11/22/17 04:45 101 24 89/33 66 Mechanical Ventilator 100 11/22/17 04:30 101 26 81/27 53 Mechanical Ventilator 100 11/22/17 04:15 107 24 88/30 88 Mechanical Ventilator 100 11/22/17 04:00 108 11/22/17 04:00 98.4 97 28 105/35 41 Mechanical Ventilator 100 11/22/17 04:00 105/35 11/22/17 04:00 100 11/22/17 03:45 97 27 86/33 73 Mechanical Ventilator 100 11/22/17 03:30 97 27 89/35 66 Mechanical Ventilator 100 11/22/17 03:15 97 27 93/32 88 Mechanical Ventilator 100 11/22/17 03:00 97 27 101/32 88 Mechanical Ventilator 100 11/22/17 03:00 101/32 11/22/17 02:59 99 28 100 11/22/17 02:45 100 29 79/35 81 Mechanical Ventilator 100 11/22/17 02:30 97 27 89/33 88 Mechanical Ventilator 100 11/22/17 02:30 99 28 80 Bi-pap 100 11/22/17 02:20 100 11/22/17 02:20 100 27 100 Bi-pap 80 11/22/17 02:15 97 27 74/31 86 Mechanical Ventilator 100 11/22/17 02:00 82/32 11/22/17 02:00 97 27 82/32 90 Mechanical Ventilator 100 11/22/17 01:45 99 25 75/28 92 Mechanical Ventilator 100 11/22/17 01:30 98 26 77/30 94 Mechanical Ventilator 100 11/22/17 01:15 99 26 77/30 95 Mechanical Ventilator 100 11/22/17 01:00 101 26 82/29 97 Mechanical Ventilator 100 11/22/17 00:30 101 29 86/33 95 Mechanical Ventilator 100 11/22/17 00:21 108 28 100 11/22/17 00:15 72 29 86/33 91 Mechanical Ventilator 100 11/22/17 00:15 86/33 11/22/17 00:00 66/29 11/22/17 00:00 98.8 81 29 66/29 66 Mechanical Ventilator 100 11/22/17 00:00 100 11/21/17 23:45 102 34 103/35 56 Mechanical Ventilator 100 11/21/17 23:30 102 34 104/38 54 Mechanical Ventilator 100 11/21/17 23:15 117/40 11/21/17 23:15 105 37 117/40 57 Mechanical Ventilator 100 11/21/17 23:04 104 11/21/17 23:03 101 41 100 11/21/17 23:00 100 38 115/41 79 Mechanical Ventilator 100 11/21/17 22:45 94 32 88/42 82 Mechanical Ventilator 100 11/21/17 22:42 76/38 11/21/17 22:30 88 26 76/32 91 Mechanical Ventilator 100 11/21/17 22:02 91 31 100 Bi-pap 100 11/21/17 22:00 95 26 89/37 84 Mechanical Ventilator 100 11/21/17 21:45 100 11/21/17 21:45 84 36 100 Bi-pap 100 11/21/17 21:30 95 28 84/39 79 Mechanical Ventilator 100 11/21/17 21:03 93 26 100 11/21/17 21:00 93 28 80/35 88 Mechanical Ventilator 100 11/21/17 20:00 100 11/21/17 20:00 99.8 96 14 94/50 81 Mechanical Ventilator 100 11/21/17 19:47 96 11/21/17 19:45 Mechanical Ventilator 100 11/21/17 19:15 98.8 101 44 93/50 Mechanical Ventilator 87 11/21/17 19:00 99.7 103 31 69/36 82 Mechanical Ventilator 100 11/21/17 18:48 101 32 100 11/21/17 18:00 99.6 101 30 78/35 83 Mechanical Ventilator 100 11/21/17 17:07 102 42 100 11/21/17 17:00 98.5 101 31 100/42 80 Mechanical Ventilator 100 11/21/17 16:30 Mechanical Ventilator 100 11/21/17 16:30 98.6 100 44 98/42 88 Mechanical Ventilator 100 11/21/17 16:02 104 37 100 11/21/17 16:00 100 11/21/17 16:00 99.5 97 30 98/42 78 Mechanical Ventilator 100 11/21/17 16:00 104 11/21/17 15:00 99.3 106 39 100/37 72 Mechanical Ventilator 100 11/21/17 14:00 98.7 106 23 105/44 79 Mechanical Ventilator 100 11/21/17 13:33 111 44 100 11/21/17 13:01 98.4 106 23 104/39 85 Mechanical Ventilator 100 11/21/17 12:00 100 11/21/17 12:00 98.1 106 30 101/41 91 Mechanical Ventilator 100 11/21/17 12:00 111 11/21/17 11:09 107 30 100 11/21/17 11:00 99.0 107 16 101/41 91 Mechanical Ventilator 100 11/21/17 10:00 98.7 114 43 124/45 90 Mechanical Ventilator 100 Intake and Output 11/21/17 11/22/17 19:00 07:00 Intake Total 1326 ml 1816.75 ml Output Total 50 ml 45 ml Balance 1276 ml 1771.75 ml IV Total 1326 ml 1816.75 ml Output Urine Total 50 ml 45 ml # Bowel Movements 2 5 Laboratory Tests 11/21/17 14:25: White Blood Count 18.5H, Red Blood Count 3.17L, Hemoglobin 8.2L, Hematocrit 25.9L, Mean Corpuscular Volume 82, Mean Corpuscular Hemoglobin 26.0L, Mean Corpuscular Hemoglobin Concent 31.8L, Red Cell Distribution Width 20.6H, Platelet Count 48L, Mean Platelet Volume 11.5H, Neutrophils (%) (Auto) 87.9H, Lymphocytes (%) (Auto) 7.1L, Monocytes (%) (Auto) 3.7, Eosinophils (%) (Auto) 0.3, Basophils (%) (Auto) 1.1 11/21/17 21:15: Reticulocyte Count 0.4, PTT Mixing Study [Pending], APTT Patient/Control Mix [ Pending], Mix PTT Incubation Time [Pending], Mix PTT Normal/Saline 1:1 Immediate [Pending], Thrombin Time Normal Plasma [Pending], Fibrinogen 175L, Ferritin 483H, Lactate Dehydrogenase 1719H, Vitamin B12 Level > 2000H, Folate 8.9, Thyroid Stimulating Hormone (TSH) 0.083L, Hepatitis A IgM Antibody [Pending ], Hepatitis B Surface Antigen [Pending], Hepatitis B Core IgM Antibody [Pending ], Hepatitis C Antibody [Pending] 11/22/17 08:00: White Blood Count 24.6*H, Red Blood Count 3.31L, Hemoglobin 8.4L, Hematocrit 27.2L, Mean Corpuscular Volume 82, Mean Corpuscular Hemoglobin 25.5L, Mean Corpuscular Hemoglobin Concent 31.1L, Red Cell Distribution Width 20.8H, Platelet Count 30L, Mean Platelet Volume 9.7, Neutrophils (%) (Auto) , Lymphocytes (%) (Auto) , Monocytes (%) (Auto) , Eosinophils (%) (Auto) , Basophils (%) (Auto) , Neutrophils % (Manual) [Pending], Lymphocytes % (Manual) [Pending], Platelet Estimate [Pending], Platelet Morphology [Pending], Prothrombin Time 18.7H, Prothromb Time International Ratio 1.8H, Sodium Level [ Pending], Potassium Level [Pending], Chloride Level [Pending], Carbon Dioxide Level [Pending], Blood Urea Nitrogen [Pending], Creatinine [Pending], Estimat Glomerular Filtration Rate [Pending], Glucose Level [Pending], Lactic Acid Level [Pending], Calcium Level [Pending], Phosphorus Level [Pending], Magnesium Level [Pending], Total Bilirubin [Pending], Aspartate Amino Transf (AST/SGOT) [ Pending], Alanine Aminotransferase (ALT/SGPT) [Pending], Alkaline Phosphatase [ Pending], Ammonia [Pending], Troponin I [Pending], C-Reactive Protein, Quantitative [Pending], Pro-B-Type Natriuretic Peptide [Pending], Total Protein [Pending], Albumin [Pending], Globulin [Pending] Height (Feet): 5 Height (Inches): 5.00 Weight (Pounds): 211 General Appearance: no apparent distress Cardiovascular: tachycardia Respiratory/Chest: decreased breath sounds Abdomen: distended SHERRY OLVERA Nov 22, 2017 10:01
[2017-11-22] MEDS: Octreotide Acetate 500 MCG in Sodium Chloride 500ML 499 ML IV SCH ×2 (10:54→19:52)
[2017-11-22 11:10] LABS: ALANINE AMINOTRANSFERASE 68 U/L (12-78); ALBUMIN 1.2 G/DL (3.4-5.0); ALBUMIN/GLOBULIN RATIO 0.3 (1.0-2.7); ALKALINE PHOSPHATASE 51 U/L (46-116); ANION GAP 16 mmol/L (5-15); ASPARTATE AMINO TRANSFERASE 312 U/L (15-37); BILIRUBIN,TOTAL 4.6 MG/DL (0.2-1.0); BLOOD UREA NITROGEN 52 mg/dL (7-18); CALCIUM 6.4 MG/DL (8.5-10.1); CARBON DIOXIDE 20 MMOL/L (21-32); CHLORIDE 101 MMOL/L (98-107); CREATININE 5.1 MG/DL (0.55-1.30); PHOSPHORUS 6.8 MG/DL (2.5-4.9); POTASSIUM 3.7 MMOL/L (3.5-5.1); SODIUM 137 MMOL/L (136-145)
[2017-11-22 11:12] LABS: BILIRUBIN,DIRECT 3.6 MG/DL (0.0-0.3)
--- NOTE | 2017-11-22 11:53 | General Progress Note ---
Assessment/Plan Problem List: (1) Cirrhosis ICD Codes: K74.60 - Unspecified cirrhosis of liver SNOMED: 17989363 (2) GIB (gastrointestinal bleeding) ICD Codes: K92.2 - Gastrointestinal hemorrhage, unspecified SNOMED: 62445443 (3) Coagulopathy ICD Codes: D68.9 - Coagulation defect, unspecified SNOMED: 52863521 (4) Thrombocytopenia ICD Codes: D69.6 - Thrombocytopenia, unspecified SNOMED: 222010835 (5) Acute respiratory failure with hypoxia ICD Codes: J96.01 - Acute respiratory failure with hypoxia SNOMED: 81909977, 554379555 Assessment/Plan octreotide>> will jose tomorrow ppi vit k>> given prn blood transfusion not stable for endoscopy Subjective ROS Limited/Unobtainable: No Allergies: Coded Allergies: No Known Allergies (Unverified , 11/18/17) Objective Last 24 Hour Vital Signs Date Time Temp Pulse Resp B/P (MAP) Pulse Ox O2 Delivery O2 Flow Rate FiO2 11/22/17 11:49 94/35 11/22/17 11:15 95 28 94/35 84 Mechanical Ventilator 100 11/22/17 11:00 92 32 95/36 84 Mechanical Ventilator 100 11/22/17 10:45 97 41 101/49 79 Mechanical Ventilator 100 11/22/17 10:45 91 39 100 11/22/17 10:30 88 35 98/50 79 Mechanical Ventilator 100 11/22/17 10:15 99 39 100/46 88 Mechanical Ventilator 100 11/22/17 10:00 96 36 89/51 79 Mechanical Ventilator 100 11/22/17 09:45 98 36 100/50 88 Mechanical Ventilator 100 11/22/17 09:30 101 32 110/50 76 Mechanical Ventilator 100 11/22/17 09:15 104 30 110/50 74 Mechanical Ventilator 100 11/22/17 09:09 98 40 100 11/22/17 09:00 98 30 109/46 81 Mechanical Ventilator 100 11/22/17 08:45 107 38 114/57 75 Mechanical Ventilator 100 11/22/17 08:30 104 40 110/41 79 Mechanical Ventilator 100 11/22/17 08:15 110 40 114/35 81 Mechanical Ventilator 100 11/22/17 08:00 99.9 101 33 108/48 72 Mechanical Ventilator 100 11/22/17 08:00 100 11/22/17 08:00 108/48 11/22/17 08:00 101 11/22/17 07:45 100.0 105 41 107/40 84 Mechanical Ventilator 100 11/22/17 07:30 100.0 108 34 93/34 74 Mechanical Ventilator 100 11/22/17 07:15 99.8 103 39 89/33 78 Mechanical Ventilator 100 11/22/17 07:06 106 35 100 11/22/17 07:00 105 33 87/48 74 Mechanical Ventilator 100 11/22/17 07:00 89/33 11/22/17 06:30 104 33 88/36 76 Mechanical Ventilator 100 11/22/17 06:15 104 33 88/36 79 Mechanical Ventilator 100 11/22/17 06:00 96/37 11/22/17 06:00 106 33 96/37 72 Mechanical Ventilator 100 11/22/17 05:45 104 34 96/37 78 Mechanical Ventilator 100 11/22/17 05:30 105 34 96/36 76 Mechanical Ventilator 100 11/22/17 05:16 91/33 11/22/17 05:15 104 33 88/34 80 Mechanical Ventilator 100 11/22/17 05:00 104 30 91/33 73 Mechanical Ventilator 100 11/22/17 05:00 91/33 11/22/17 04:50 107 38 100 11/22/17 04:45 101 24 89/33 66 Mechanical Ventilator 100 11/22/17 04:30 101 26 81/27 53 Mechanical Ventilator 100 11/22/17 04:15 107 24 88/30 88 Mechanical Ventilator 100 11/22/17 04:00 108 11/22/17 04:00 98.4 97 28 105/35 41 Mechanical Ventilator 100 11/22/17 04:00 105/35 11/22/17 04:00 100 11/22/17 03:45 97 27 86/33 73 Mechanical Ventilator 100 11/22/17 03:30 97 27 89/35 66 Mechanical Ventilator 100 11/22/17 03:15 97 27 93/32 88 Mechanical Ventilator 100 11/22/17 03:00 97 27 101/32 88 Mechanical Ventilator 100 11/22/17 03:00 101/32 11/22/17 02:59 99 28 100 11/22/17 02:45 100 29 79/35 81 Mechanical Ventilator 100 11/22/17 02:30 97 27 89/33 88 Mechanical Ventilator 100 11/22/17 02:30 99 28 80 Bi-pap 100 11/22/17 02:20 100 11/22/17 02:20 100 27 100 Bi-pap 80 11/22/17 02:15 97 27 74/31 86 Mechanical Ventilator 100 11/22/17 02:00 82/32 11/22/17 02:00 97 27 82/32 90 Mechanical Ventilator 100 11/22/17 01:45 99 25 75/28 92 Mechanical Ventilator 100 11/22/17 01:30 98 26 77/30 94 Mechanical Ventilator 100 11/22/17 01:15 99 26 77/30 95 Mechanical Ventilator 100 11/22/17 01:00 101 26 82/29 97 Mechanical Ventilator 100 11/22/17 00:30 101 29 86/33 95 Mechanical Ventilator 100 11/22/17 00:21 108 28 100 11/22/17 00:15 72 29 86/33 91 Mechanical Ventilator 100 11/22/17 00:15 86/33 11/22/17 00:00 66/29 11/22/17 00:00 98.8 81 29 66/29 66 Mechanical Ventilator 100 11/22/17 00:00 100 11/21/17 23:45 102 34 103/35 56 Mechanical Ventilator 100 11/21/17 23:30 102 34 104/38 54 Mechanical Ventilator 100 11/21/17 23:15 117/40 11/21/17 23:15 105 37 117/40 57 Mechanical Ventilator 100 11/21/17 23:04 104 11/21/17 23:03 101 41 100 11/21/17 23:00 100 38 115/41 79 Mechanical Ventilator 100 11/21/17 22:45 94 32 88/42 82 Mechanical Ventilator 100 11/21/17 22:42 76/38 11/21/17 22:30 88 26 76/32 91 Mechanical Ventilator 100 11/21/17 22:02 91 31 100 Bi-pap 100 11/21/17 22:00 95 26 89/37 84 Mechanical Ventilator 100 11/21/17 21:45 100 11/21/17 21:45 84 36 100 Bi-pap 100 11/21/17 21:30 95 28 84/39 79 Mechanical Ventilator 100 11/21/17 21:03 93 26 100 11/21/17 21:00 93 28 80/35 88 Mechanical Ventilator 100 11/21/17 20:00 100 1/6/18 20:00 99.8 96 14 94/50 81 Mechanical Ventilator 100 11/21/17 19:47 96 11/21/17 19:45 Mechanical Ventilator 100 11/21/17 19:15 98.8 101 44 93/50 Mechanical Ventilator 87 11/21/17 19:00 99.7 103 31 69/36 82 Mechanical Ventilator 100 11/21/17 18:48 101 32 100 11/21/17 18:00 99.6 101 30 78/35 83 Mechanical Ventilator 100 11/21/17 17:07 102 42 100 11/21/17 17:00 98.5 101 31 100/42 80 Mechanical Ventilator 100 11/21/17 16:30 Mechanical Ventilator 100 11/21/17 16:30 98.6 100 44 98/42 88 Mechanical Ventilator 100 11/21/17 16:02 104 37 100 11/21/17 16:00 100 11/21/17 16:00 99.5 97 30 98/42 78 Mechanical Ventilator 100 11/21/17 16:00 104 11/21/17 15:00 99.3 106 39 100/37 72 Mechanical Ventilator 100 11/21/17 14:00 98.7 106 23 105/44 79 Mechanical Ventilator 100 11/21/17 13:33 111 44 100 11/21/17 13:01 98.4 106 23 104/39 85 Mechanical Ventilator 100 11/21/17 12:00 100 11/21/17 12:00 98.1 106 30 101/41 91 Mechanical Ventilator 100 11/21/17 12:00 111 Intake and Output 11/21/17 11/22/17 19:00 07:00 Intake Total 1326 ml 1816.75 ml Output Total 50 ml 45 ml Balance 1276 ml 1771.75 ml IV Total 1326 ml 1816.75 ml Output Urine Total 50 ml 45 ml # Bowel Movements 2 5 Laboratory Tests 11/21/17 14:25: White Blood Count 18.5H, Red Blood Count 3.17L, Hemoglobin 8.2L, Hematocrit 25.9L, Mean Corpuscular Volume 82, Mean Corpuscular Hemoglobin 26.0L, Mean Corpuscular Hemoglobin Concent 31.8L, Red Cell Distribution Width 20.6H, Platelet Count 48L, Mean Platelet Volume 11.5H, Neutrophils (%) (Auto) 87.9H, Lymphocytes (%) (Auto) 7.1L, Monocytes (%) (Auto) 3.7, Eosinophils (%) (Auto) 0.3, Basophils (%) (Auto) 1.1 11/21/17 21:15: Reticulocyte Count 0.4, PTT Mixing Study [Pending], APTT Patient/Control Mix [ Pending], Mix PTT Incubation Time [Pending], Mix PTT Normal/Saline 1:1 Immediate [Pending], Thrombin Time Normal Plasma [Pending], Fibrinogen 175L, Ferritin 483H, Lactate Dehydrogenase 1719H, Vitamin B12 Level > 2000H, Folate 8.9, Thyroid Stimulating Hormone (TSH) 0.083L, Hepatitis A IgM Antibody [Pending ], Hepatitis B Surface Antigen [Pending], Hepatitis B Core IgM Antibody [Pending ], Hepatitis C Antibody [Pending] 11/22/17 08:00: White Blood Count 24.6*H, Red Blood Count 3.31L, Hemoglobin 8.4L, Hematocrit 27.2L, Mean Corpuscular Volume 82, Mean Corpuscular Hemoglobin 25.5L, Mean Corpuscular Hemoglobin Concent 31.1L, Red Cell Distribution Width 20.8H, Platelet Count 30L, Mean Platelet Volume 9.7, Neutrophils (%) (Auto) , Lymphocytes (%) (Auto) , Monocytes (%) (Auto) , Eosinophils (%) (Auto) , Basophils (%) (Auto) , Differential Total Cells Counted 100, Neutrophils % ( Manual) 78H, Lymphocytes % (Manual) 4L, Monocytes % (Manual) 9, Eosinophils % ( Manual) 0, Basophils % (Manual) 0, Band Neutrophils 9H, Nucleated Red Blood Cells 20, Platelet Estimate Adequate, Platelet Morphology Normal, Polychromasia 1+, Hypochromasia 1+, Anisocytosis 2+, Prothrombin Time 18.7H, Prothromb Time International Ratio 1.8H, Sodium Level 137, Potassium Level 3.7, Chloride Level 101, Carbon Dioxide Level 20L, Anion Gap 16H, Blood Urea Nitrogen 52H, Creatinine 5.1H, Estimat Glomerular Filtration Rate 12.0, Glucose Level 128H, Lactic Acid Level 7.00H, Calcium Level 6.4L, Phosphorus Level 6.8H, Magnesium Level 2.0, Total Bilirubin 4.6H, Direct Bilirubin 3.6H, Aspartate Amino Transf ( AST/SGOT) 312H, Alanine Aminotransferase (ALT/SGPT) 68, Alkaline Phosphatase 51 , Ammonia 22, Troponin I 0.640H, C-Reactive Protein, Quantitative 14.4H, Pro-B- Type Natriuretic Peptide 43645G, Total Protein 5.9L, Albumin 1.2L, Globulin 4.7 , Albumin/Globulin Ratio 0.3L Height (Feet): 5 Height (Inches): 5.00 Weight (Pounds): 211 General Appearance: lethargic EENT: normal ENT inspection Neck: supple Cardiovascular: tachycardia Respiratory/Chest: decreased breath sounds Abdomen: normal bowel sounds, non tender, soft Extremities: non-tender ALFA LAINEZ Nov 22, 2017 11:53
--- NOTE | 2017-11-22 12:14 | Pulmonolgy Critical Care Note ---
Critical Care - Asmt/Plan Assessment/Plan: ASSESSMENT Acute hypoxemic hypercapnic RF requiring intubation Severe sepsis with shock Strep pneumonia bacteremia bilateral PNA Possible UTI Lactic acidosis acute anemia requiring multiple blood transfusion GI bleeding Elevated troponin pleural effusion Acute toxic metabolic encephalopathy (ikely multifactorial due to hypoglycemia, sepsis, liver failure , severe anemia) Liver cirrhosis Liver failure Coagulopathy Thrombocytopenia Acute renal failure, requiring HD ( new start of HD0 possible hepatorenal syndrome MOF Hypoglycemia ( initially) mild pulmonary HTN PLAN OF CARE ICU care Vent support Pulm toilet daily ABG and CXR and titrate settings as needed PEEP increased to 12 still hypoxemic hemodynamic support, with Levophed to keep MAP above 65 IVF trop trending down this am ECG no acute ischemic changes ECHO with pEF 60-65% and RVSP of 42 c/w mild pulm HTN cardio follows Abx, ID follows Blood cx + Strep pneumonia, urine cx negative, get sputum cx stool C dif negative HIV and hep panel negative CT C/A/P c/w extensive PNA, bilateral pleural effusion R>L, ascites, anasarca , liver cirrhosis Venous Duplex BLE if negative, get SCD Nephro follows ARF likely 2 to sepsis, monitor renal parameters, lytes, avoid nephrotoxic creat rising s/p HD 1/6 after placement of HD catheter LFT/bili with sharp increase-likely liver failure possible hepatorenal syndrome GI eval appreciated on octreotide gtt s/p vit K for coagulopathy , INR down to 1.8 additional vit K today heme eval pending overall prognosis poor case discussed and evaluated by supervising physician Critical Care - Objective Last 24 Hour Vital Signs Date Time Temp Pulse Resp B/P (MAP) Pulse Ox O2 Delivery O2 Flow Rate FiO2 11/22/17 11:49 94/35 11/22/17 11:45 92 26 88/39 74 Mechanical Ventilator 100 11/22/17 11:30 93 32 90/41 88 Mechanical Ventilator 100 11/22/17 11:15 95 28 94/35 84 Mechanical Ventilator 100 11/22/17 11:00 92 32 95/36 84 Mechanical Ventilator 100 11/22/17 10:45 97 41 101/49 79 Mechanical Ventilator 100 11/22/17 10:45 91 39 100 11/22/17 10:30 88 35 98/50 79 Mechanical Ventilator 100 11/22/17 10:15 99 39 100/46 88 Mechanical Ventilator 100 11/22/17 10:00 96 36 89/51 79 Mechanical Ventilator 100 11/22/17 09:45 98 36 100/50 88 Mechanical Ventilator 100 11/22/17 09:30 101 32 110/50 76 Mechanical Ventilator 100 11/22/17 09:15 104 30 110/50 74 Mechanical Ventilator 100 11/22/17 09:09 98 40 100 11/22/17 09:00 98 30 109/46 81 Mechanical Ventilator 100 11/22/17 08:45 107 38 114/57 75 Mechanical Ventilator 100 11/22/17 08:30 104 40 110/41 79 Mechanical Ventilator 100 11/22/17 08:15 110 40 114/35 81 Mechanical Ventilator 100 11/22/17 08:00 99.9 101 33 108/48 72 Mechanical Ventilator 100 11/22/17 08:00 100 11/22/17 08:00 108/48 11/22/17 08:00 101 11/22/17 07:45 100.0 105 41 107/40 84 Mechanical Ventilator 100 11/22/17 07:30 100.0 108 34 93/34 74 Mechanical Ventilator 100 11/22/17 07:15 99.8 103 39 89/33 78 Mechanical Ventilator 100 11/22/17 07:06 106 35 100 11/22/17 07:00 105 33 87/48 74 Mechanical Ventilator 100 11/22/17 07:00 89/33 11/22/17 06:30 104 33 88/36 76 Mechanical Ventilator 100 11/22/17 06:15 104 33 88/36 79 Mechanical Ventilator 100 11/22/17 06:00 96/37 11/22/17 06:00 106 33 96/37 72 Mechanical Ventilator 100 11/22/17 05:45 104 34 96/37 78 Mechanical Ventilator 100 11/22/17 05:30 105 34 96/36 76 Mechanical Ventilator 100 11/22/17 05:16 91/33 11/22/17 05:15 104 33 88/34 80 Mechanical Ventilator 100 11/22/17 05:00 104 30 91/33 73 Mechanical Ventilator 100 11/22/17 05:00 91/33 11/22/17 04:50 107 38 100 11/22/17 04:45 101 24 89/33 66 Mechanical Ventilator 100 11/22/17 04:30 101 26 81/27 53 Mechanical Ventilator 100 11/22/17 04:15 107 24 88/30 88 Mechanical Ventilator 100 11/22/17 04:00 108 11/22/17 04:00 98.4 97 28 105/35 41 Mechanical Ventilator 100 11/22/17 04:00 105/35 11/22/17 04:00 100 11/22/17 03:45 97 27 86/33 73 Mechanical Ventilator 100 11/22/17 03:30 97 27 89/35 66 Mechanical Ventilator 100 11/22/17 03:15 97 27 93/32 88 Mechanical Ventilator 100 11/22/17 03:00 97 27 101/32 88 Mechanical Ventilator 100 11/22/17 03:00 101/32 11/22/17 02:59 99 28 100 11/22/17 02:45 100 29 79/35 81 Mechanical Ventilator 100 11/22/17 02:30 97 27 89/33 88 Mechanical Ventilator 100 11/22/17 02:30 99 28 80 Bi-pap 100 11/22/17 02:20 100 11/22/17 02:20 100 27 100 Bi-pap 80 11/22/17 02:15 97 27 74/31 86 Mechanical Ventilator 100 11/22/17 02:00 82/32 11/22/17 02:00 97 27 82/32 90 Mechanical Ventilator 100 11/22/17 01:45 99 25 75/28 92 Mechanical Ventilator 100 11/22/17 01:30 98 26 77/30 94 Mechanical Ventilator 100 11/22/17 01:15 99 26 77/30 95 Mechanical Ventilator 100 11/22/17 01:00 101 26 82/29 97 Mechanical Ventilator 100 11/22/17 00:30 101 29 86/33 95 Mechanical Ventilator 100 11/22/17 00:21 108 28 100 11/22/17 00:15 72 29 86/33 91 Mechanical Ventilator 100 11/22/17 00:15 86/33 11/22/17 00:00 66/29 11/22/17 00:00 98.8 81 29 66/29 66 Mechanical Ventilator 100 11/22/17 00:00 100 11/21/17 23:45 102 34 103/35 56 Mechanical Ventilator 100 11/21/17 23:30 102 34 104/38 54 Mechanical Ventilator 100 11/21/17 23:15 117/40 11/21/17 23:15 105 37 117/40 57 Mechanical Ventilator 100 11/21/17 23:04 104 11/21/17 23:03 101 41 100 11/21/17 23:00 100 38 115/41 79 Mechanical Ventilator 100 11/21/17 22:45 94 32 88/42 82 Mechanical Ventilator 100 11/21/17 22:42 76/38 11/21/17 22:30 88 26 76/32 91 Mechanical Ventilator 100 11/21/17 22:02 91 31 100 Bi-pap 100 11/21/17 22:00 95 26 89/37 84 Mechanical Ventilator 100 11/21/17 21:45 100 11/21/17 21:45 84 36 100 Bi-pap 100 11/21/17 21:30 95 28 84/39 79 Mechanical Ventilator 100 11/21/17 21:03 93 26 100 11/21/17 21:00 93 28 80/35 88 Mechanical Ventilator 100 11/21/17 20:00 100 11/21/17 20:00 99.8 96 14 94/50 81 Mechanical Ventilator 100 11/21/17 19:47 96 11/21/17 19:45 Mechanical Ventilator 100 11/21/17 19:15 98.8 101 44 93/50 Mechanical Ventilator 87 11/21/17 19:00 99.7 103 31 69/36 82 Mechanical Ventilator 100 11/21/17 18:48 101 32 100 11/21/17 18:00 99.6 101 30 78/35 83 Mechanical Ventilator 100 11/21/17 17:07 102 42 100 11/21/17 17:00 98.5 101 31 100/42 80 Mechanical Ventilator 100 11/21/17 16:30 Mechanical Ventilator 100 11/21/17 16:30 98.6 100 44 98/42 88 Mechanical Ventilator 100 11/21/17 16:02 104 37 100 11/21/17 16:00 100 11/21/17 16:00 99.5 97 30 98/42 78 Mechanical Ventilator 100 11/21/17 16:00 104 11/21/17 15:00 99.3 106 39 100/37 72 Mechanical Ventilator 100 11/21/17 14:00 98.7 106 23 105/44 79 Mechanical Ventilator 100 11/21/17 13:33 111 44 100 11/21/17 13:01 98.4 106 23 104/39 85 Mechanical Ventilator 100 Objective: Status: lethargic on vent AC with 100% FiO2 TV 700, AC-20, PEEP 12 Condition: grave HEENT: atraumatic, normocephalic, OP with ET in place intact Lungs: rhonchi, scattered Heart: regular - ST on tele Abdomen: soft, distended , active bowel sounds Extremities: no C/C/E Micro: Microbiology Date/Time Source Procedure Growth Status 11/20/17 23:30 Stool Clostridium difficile Toxin Assay - Final Complete Accucheck: 100 Critical Care - Subjective ROS Limited/Unobtainable: Yes Interval Events: leukocytosis trending up febrile tachypneic hypotensive started on Levophed remains intubated Octreotide continued had HD 11/21 tronopin this am with trend down PLT down to 30 Condition: critical IV Access: central - femoral HD catheter , peripheral EKG Rhythm: Sinus Tachycardia FI02: 100 Vent Support Breath Rate: 26 Vent Support Mode: AC Vent Tidal Volume: 700 Sputum Amount: Small PEEP: 12.0 PIP: 47 Fluids: D51/2 NS at 75 Drips: Octreotide at 50 ml/hr, levophed at 18 I&O: Intake and Output 11/21/17 11/22/17 19:00 07:00 Intake Total 1326 ml 1816.75 ml Output Total 50 ml 45 ml Balance 1276 ml 1771.75 ml IV Total 1326 ml 1816.75 ml Output Urine Total 50 ml 45 ml # Bowel Movements 2 5 CXR: Consolidation R lung widespread ET-Tube: 7.5 ET Position: 24 Luther (CharlesShila ramos NP Nov 22, 2017 12:14
[2017-11-22] MEDS ORDERED: Albuterol/Ipratropium 3ml neb HHN PRN (12:15)
[2017-11-22] MEDS ORDERED: Phytonadione 5 MG in D5W 55 ML IVPB ONE (12:15)
--- NOTE | 2017-11-22 12:50 | General Progress Note ---
Progress Note Progress Note Surgery: right femoral HD cath clean and functional. use as needed. Emanuel Lemus Nov 22, 2017 12:50
[2017-11-22] MEDS: cefTRIAXone 2 GM in D5W 55 ML IVPB SCH (15:54)
[2017-11-22] MEDS: Phytonadione 10 mg/mL 1ml amp SUBQ SCH (20:00)
[2017-11-22] MEDS ORDERED: Sodium Bicarbonate 50ml Carp IV ONE ×2 (20:15→21:45)
[2017-11-22] MEDS: Dyna-Hex 2% Top Sol 2oz TOPIC SCH (20:18)
[2017-11-23] VITALS (50 sets, daily range): BP systolic 53–75; BP diastolic 4–33
[2017-11-23] MEDS: Octreotide Acetate 500 MCG in Sodium Chloride 500ML 499 ML IV SCH (05:31)
[2017-11-23] MEDS: D5 1/2NS 1,000 ML IV SCH ×2 (05:32→16:50)
[2017-11-23] MEDS ORDERED: Phenylephrine 10mg/ml 5ml vial IV ONE (06:22)
[2017-11-23] MEDS: Phenylephrine 100 MG in D5W 240 ML IV SCH ×2 (06:30→16:11)
[2017-11-23 06:40] LABS: ALANINE AMINOTRANSFERASE 85 U/L (12-78); ALBUMIN/GLOBULIN RATIO 0.2 (1.0-2.7); ALKALINE PHOSPHATASE 57 U/L (46-116); ANION GAP 22 mmol/L (5-15); ASPARTATE AMINO TRANSFERASE 590 U/L (15-37); BILIRUBIN,TOTAL 4.4 MG/DL (0.2-1.0); BLOOD UREA NITROGEN 56 mg/dL (7-18); CALCIUM 6.5 MG/DL (8.5-10.1); CARBON DIOXIDE 15 MMOL/L (21-32); CHLORIDE 102 MMOL/L (98-107); HEMATOCRIT 25.1 % (42.0-52.0); HEMOGLOBIN 7.7 G/DL (14.2-18.0); MEAN CORPUSCULAR VOLUME 85 FL (80-99); PLATELET COUNT 22 K/UL (150-450); POTASSIUM 4.2 MMOL/L (3.5-5.1); RED BLOOD COUNT 2.94 M/UL (4.70-6.10); SODIUM 139 MMOL/L (136-145)
[2017-11-23 06:45] LABS: WHITE BLOOD COUNT 31.3 K/UL (4.8-10.8)
[2017-11-23 06:53] LABS: BILIRUBIN,DIRECT 3.6 MG/DL (0.0-0.3)
[2017-11-23 07:00] LABS: INR 5.6 (0.9-1.1)
[2017-11-23] MEDS ORDERED: Phytonadione 10 MG in D5W 55 ML IVPB ONE (08:30)
[2017-11-23] MEDS: Pantoprazole Inj IVP SCH (08:51)
[2017-11-23] MEDS: Phytonadione 10 mg/mL 1ml amp SUBQ SCH (08:52)
--- NOTE | 2017-11-23 09:15 | Consultation ---
DATE OF CONSULTATION: 11/22/2017 NOTE: POOR AUDIO HEMATOLOGY/ONCOLOGY CONSULTATION CONSULTING PHYSICIAN: Cuate Rose M.D. REQUESTING PHYSICIAN: Shila QuinteroCatskill [facility] Medical CenterLashell Franklin and Herve Betts M.D. REASON FOR CONSULTATION: Evaluation of thrombocytopenia that has progressed. IDENTIFICATION DATA: Dear Dr. Betts, The patient is a pleasant 52-year-old male. He has a past medical history, which is significant for lactic acidosis, recently with acute respiratory distress on admission, , acute kidney injury, cirrhosis, thrombocytopenia, GI bleed, and coagulopathy, difficult to obtain further information given the patient is intubated, at this time presented to the hospital with sepsis in the ICU medical care and management. As per Pulmonary team, unable to communicate, difficult to obtain further history. He has been seen by Surgical Service, no intervention recommended, has been seen by Cardiology. He is on a vent. The patient's sinus tachycardia is secondary to sepsis, multiple organ system failure, poor prognosis, coagulopathy, also by Dr. Nehemiah Lemus, who is the primary physician. Continue antibiotics, Nephrology evaluation. The patient is status post dialysis on 11/21/2017. Labs were reviewed. The patient has bilateral pneumonia, hypoalbuminemia, and lactic acidosis. The patient is status post multiple blood transfusions, acute renal failure, again on hemodialysis. Hematology Service was consulted for further evaluation and treatment. PAST MEDICAL HISTORY: None specifically noted besides current conditions. PAST SURGICAL HISTORY: Difficult to obtain, none noted. MEDICATIONS: D5 normal saline, cefepime, vancomycin, Tylenol, Protonix, morphine, and DuoNeb inhaler. ALLERGIES: No known drug allergies. SOCIAL HISTORY: Difficult to obtain. FAMILY HISTORY: Difficult to obtain. PHYSICAL EXAMINATION: GENERAL: No acute distress. VITAL SIGNS: Reviewed. PULMONARY: Decreased breath sounds. He is on ventilator. CARDIOVASCULAR: Regular rate. No S3 or S4. ABDOMEN: Soft, nontender, and nondistended. EXTREMITIES: A 1+ edema. LABORATORY DATA: Lactic acid 5.2. Troponin 0.64. INR of 1.8, remains elevated. 175. WBC 25,000, hemoglobin 8.4, hematocrit 27, and platelet count 30,000, nucleated RBCs at 20, and monocytes 4%. Peripheral smear reviewed from before. The patient has normocytic and hypochromic anemia, anisopoikilocytosis. ESR of 6 of 1.5. Initial platelet count of 101,000 on admission. Initial hemoglobin was 4.7. Chemistry reviewed on admission noted to have a troponin of 1.56. Total protein 6.2, ferritin occasional target cells. B12 greater than 2000. IMAGING: Abdominal x-ray shows stable position of NG-tube. CT scan of the chest, abdomen, and pelvis shows anasarca, ascites, colonic wall thickening, spondylosis, cardiomegaly, bilateral effusions, extensive parenchymal infiltrates, pneumonia, suggested nodularity. ASSESSMENT AND RECOMMENDATIONS: 1. Thrombocytopenia, likely secondary to underlying sepsis. Reviewed the patient's peripheral smear. Continue the patient on broad-spectrum antibiotics as per ID Service. Continue ceftriaxone as well as vasopressors as well as Levophed and octreotide drip. Platelet goal above 20,000 if having a fever. 2. 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 Obtain mixing study. Results are pending. 3. Severe anemia secondary to chronic disease. Continue to closely monitor. Anemia workup has been reviewed. 4. Anemia secondary to kidney disease. Hemoglobin goal is above 7. The patient requires further dialysis. Administer Epogen. Currently does not require iron. 5. Acute hypoxic respiratory failure, required intubation. 6. Sepsis with bacteremia and Streptococcus pneumoniae. 7. Lactic acidosis. Continues to persist. 8. Liver cirrhosis and liver failure. 9. Extremely poor prognosis. Continue intensive care unit care. Appreciate business sales consultant followup, and I have ordered hematological labs yesterday and today. Cuate Rose M.D. DR: ALEJANDRA JOB#: [id number] CC:
--- NOTE | 2017-11-23 11:15 | Pulmonolgy Critical Care Note ---
Critical Care - Asmt/Plan Problems: (1) Acute respiratory failure with hypoxia (2) Severe sepsis (3) Severe anemia (4) Thrombocytopenia (5) Cirrhosis (6) Coagulopathy Respiratory: monitor respiratory rate, adjust FIO2, CXR Cardiac: continue pressors, continue to monitor HR/BP Renal: F/U I&O, keep IV fluid, check electrolytes Infectious Disease: check cultures, continue antibiotics Gastrointestinal: hold feedings Endocrine: monitor blood sugar Hematologic: monitor H/H Neurologic: PRN Ativan Affect: PRN ativan Prophylaxis: Heparin Notes Reviewed: social insurance analyst, renal Discussed with: consultants, case sealerimaging center manager - Objective Last 24 Hour Vital Signs Date Time Temp Pulse Resp B/P (MAP) Pulse Ox O2 Delivery O2 Flow Rate FiO2 11/23/17 11:00 69/25 11/23/17 10:30 96 21 67/ 60 Mechanical Ventilator 100 11/23/17 10:00 /11/23/17 10:00 95 21 64/27 60 Mechanical Ventilator 100 11/23/17 09:32 68/11/23/17 09:30 96 23 70/4 62 Mechanical Ventilator 100 11/23/17 09:00 98 23 64/27 58 Mechanical Ventilator 100 11/23/17 09:00 64/27 11/23/17 08:38 98 29 100 11/23/17 08:30 98 23 69/26 57 Mechanical Ventilator 100 11/23/17 08:00 98.3 99 22 57/22 57 Mechanical Ventilator 100 11/23/17 08:00 99 11/23/17 08:00 68/27 11/23/17 08:00 100 11/23/17 07:30 99 25 63/28 62 Mechanical Ventilator 100 11/23/17 07:23 98 28 100 11/23/17 07:00 77 23 57/22 62 Mechanical Ventilator 100 11/23/17 06:45 76 22 59/22 61 Mechanical Ventilator 100 11/23/17 06:30 70 22 53/19 61 Mechanical Ventilator 100 11/23/17 06:30 67 53/19 11/23/17 06:15 95 22 58/33 61 Mechanical Ventilator 100 11/23/17 06:00 61/24 11/23/17 06:00 94 22 61/24 61 Mechanical Ventilator 100 11/23/17 05:30 95 23 61/26 62 Mechanical Ventilator 100 11/23/17 05:26 96 28 100 11/23/17 05:00 61/25 11/23/17 05:00 96 23 61/25 58 Mechanical Ventilator 100 11/23/17 04:44 67/29 11/23/17 04:30 97 26 67/29 55 Mechanical Ventilator 100 11/23/17 04:00 100 11/23/17 04:00 98.6 93 25 65/27 47 Mechanical Ventilator 100 11/23/17 04:00 65/27 11/23/17 03:30 94 26 67/26 55 Mechanical Ventilator 100 11/23/17 03:28 98 38 100 11/23/17 03:24 82 11/23/17 03:00 70/28 11/23/17 03:00 94 25 71/28 55 Mechanical Ventilator 100 11/23/17 02:30 104 25 74/29 68 Mechanical Ventilator 100 11/23/17 02:11 40 11/23/17 02:00 102 32 68/33 89 Mechanical Ventilator 100 11/23/17 02:00 73/29 11/23/17 01:51 101 39 100 11/23/17 01:30 103 23 65/29 97 Mechanical Ventilator 100 11/23/17 01:00 105 28 64/28 95 Mechanical Ventilator 100 11/23/17 01:00 64/29 11/23/17 00:45 108 26 68/32 95 Mechanical Ventilator 100 11/23/17 00:30 101 26 74/32 53 Mechanical Ventilator 100 11/23/17 00:30 100 11/23/17 00:00 99.8 108 29 74/31 50 Mechanical Ventilator 100 11/23/17 00:00 76/36 11/22/17 23:54 59 28 100 11/22/17 23:30 107 27 76/36 52 Mechanical Ventilator 100 11/22/17 23:00 90 37 81/42 92 Mechanical Ventilator 100 11/22/17 23:00 81/42 11/22/17 22:30 108 38 78/38 90 Mechanical Ventilator 100 11/22/17 22:00 81/33 11/22/17 22:00 108 36 80/36 85 Mechanical Ventilator 100 11/22/17 21:30 107 32 80/33 92 Mechanical Ventilator 100 11/22/17 21:00 113 28 84/35 77 Mechanical Ventilator 100 11/22/17 21:00 84/35 11/22/17 20:48 112 39 100 11/22/17 20:45 104 26 91/41 98 Mechanical Ventilator 100 11/22/17 20:30 106 37 90/48 98 Mechanical Ventilator 100 11/22/17 20:15 105 35 84/36 98 Mechanical Ventilator 100 11/22/17 20:00 105 33 77/34 98 Mechanical Ventilator 100 11/22/17 20:00 77/34 11/22/17 20:00 100 11/22/17 20:00 105 11/22/17 19:45 104 33 69/29 94 Mechanical Ventilator 100 11/22/17 19:30 105 31 63/31 84 Mechanical Ventilator 100 11/22/17 19:19 104 28 100 11/22/17 19:15 99.6 105 30 65/34 82 Mechanical Ventilator 100 11/22/17 19:05 80/34 11/22/17 19:00 102 25 85/35 61 Mechanical Ventilator 100 11/22/17 18:45 103 26 80/35 54 Mechanical Ventilator 100 11/22/17 18:30 105 27 82/34 41 Mechanical Ventilator 100 11/22/17 18:15 107 26 83/37 50 Mechanical Ventilator 100 11/22/17 18:00 106 25 82/33 51 Mechanical Ventilator 100 11/22/17 18:00 82/33 11/22/17 17:45 106 25 80/33 55 Mechanical Ventilator 100 11/22/17 17:30 103 25 80/32 48 Mechanical Ventilator 100 11/22/17 17:15 106 31 71/25 51 Mechanical Ventilator 100 11/22/17 17:00 109 34 94/42 41 Mechanical Ventilator 100 11/22/17 17:00 100 11/22/17 17:00 74/40 11/22/17 16:45 106 44 90/41 55 Mechanical Ventilator 100 11/22/17 16:32 101 29 100 11/22/17 16:30 102 48 80/48 45 Mechanical Ventilator 100 11/22/17 16:15 99 38 71/40 51 Mechanical Ventilator 100 11/22/17 16:00 98.2 107 25 87/40 69 Mechanical Ventilator 100 11/22/17 16:00 107 11/22/17 16:00 83 29 90/42 70 Mechanical Ventilator 100 11/22/17 16:00 87/40 11/22/17 16:00 87/40 11/22/17 16:00 100 11/22/17 15:45 101 31 95/51 71 Mechanical Ventilator 100 11/22/17 15:30 105 29 91/45 70 Mechanical Ventilator 100 11/22/17 15:15 111 27 101/47 72 Mechanical Ventilator 100 11/22/17 15:00 100 30 100 11/22/17 15:00 103 30 94/41 83 Mechanical Ventilator 100 11/22/17 15:00 94/41 11/22/17 14:45 107 26 99/38 78 Mechanical Ventilator 100 11/22/17 14:30 102 24 96/43 82 Mechanical Ventilator 100 11/22/17 14:15 90 35 90/43 86 Mechanical Ventilator 100 11/22/17 14:00 93 29 91/34 80 Mechanical Ventilator 100 11/22/17 14:00 87/34 11/22/17 13:45 92 30 91/42 74 Mechanical Ventilator 100 11/22/17 13:30 92 30 93/41 81 Mechanical Ventilator 100 11/22/17 13:15 90 38 90/42 86 Mechanical Ventilator 100 11/22/17 13:00 91 34 91/43 84 Mechanical Ventilator 100 11/22/17 13:00 88/40 11/22/17 12:45 93 38 91/40 82 Mechanical Ventilator 100 11/22/17 12:35 94 29 100 11/22/17 12:30 94 41 94/41 82 Mechanical Ventilator 100 11/22/17 12:15 92 38 90/40 83 Mechanical Ventilator 100 11/22/17 12:00 97.5 92 40 92/37 84 Mechanical Ventilator 100 11/22/17 12:00 100 11/22/17 12:00 92/37 11/22/17 12:00 92 11/22/17 11:49 94/35 11/22/17 11:45 92 26 88/39 74 Mechanical Ventilator 100 11/22/17 11:30 93 32 90/41 88 Mechanical Ventilator 100 11/22/17 11:15 95 28 94/35 84 Mechanical Ventilator 100 Status: sedated Condition: critical HEENT: atraumatic Lungs: clear Heart: HR/BP stable, regular Abdomen: non-tender Extremities: no C/C/E, edema Decubiti: location Micro: Microbiology Date/Time Source Procedure Growth Status 11/21/17 04:20 Stool Clostridium difficile Toxin Assay - Final Complete 11/20/17 23:30 Stool Clostridium difficile Toxin Assay - Final Complete Accucheck: 71 Critical Care - Subjective ROS Limited/Unobtainable: No ICU Day: 5 Intubation Day: 5 Condition: critical EKG Rhythm: Sinus Rhythm FI02: 100 Vent Support Breath Rate: 26 Vent Support Mode: AC Vent Tidal Volume: 700 Sputum Amount: Small PEEP: 15.0 PIP: 45 Drips: d5 1/2 NS 75 cc/hour I&O: Intake and Output 11/22/17 11/23/17 19:00 07:00 Intake Total 2066.37 ml 2174.75 ml Output Total 15 ml 5 ml Balance 2051.37 ml 2169.75 ml IV Total 2066.37 ml 2174.75 ml Output Urine Total 15 ml 5 ml # Bowel Movements 4 4 CXR: no change ET-Tube: 7.5 ET Position: 24 Labs: Laboratory Tests Test 11/22/17 12:30 11/22/17 17:14 11/22/17 21:00 11/23/17 05:10 Lactic Acid Level 5.20 mmol/L (0.66-2.22) H Arterial Blood pH 6.968 (7.350-7.450) Arterial Blood Partial Pressure CO2 67.1 mmHg (35.0-45.0) *H Arterial Blood Partial Pressure O2 46.0 mmHg (75.0-100.0) Arterial Blood HCO3 15.0 mmol/L (22.0-26.0) L Arterial Blood Oxygen Saturation 17.7 % (92.0-98.0) L Arterial Blood Base Excess -16.0 Sigifredo Test Positive Uric Acid 7.5 MG/DL (2.6-7.2) H Total Protein (PEP) Pending Albumin (PEP) Pending Globulin (PEP) Pending Albumin/Globulin Ratio Pending 0.2 (1.0-2.7) L Dsned-0-Exnlwkurf Pending Nskuu-2-Qcrstkxqn Pending Beta Globulins Pending Beta Gamma Globulin Pending PEP Abnormal Protein Bands Pending Protein Electrophoresis Interpret Pending Heparin-PF4 Antibody Screen Pending White Blood Count 31.3 K/UL (4.8-10.8) *H Red Blood Count 2.94 M/UL (4.70-6.10) L Hemoglobin 7.7 G/DL (14.2-18.0) L Hematocrit 25.1 % (42.0-52.0) L Mean Corpuscular Volume 85 FL (80-99) Mean Corpuscular Hemoglobin 26.1 PG (27.0-31.0) L Mean Corpuscular Hemoglobin Concent 30.5 G/DL (32.0-36.0) L Red Cell Distribution Width 21.0 % (11.6-14.8) H Platelet Count 22 K/UL (150-450) L Mean Platelet Volume 10.5 FL (6.5-10.1) H Neutrophils (%) (Auto) % (45.0-75.0) Lymphocytes (%) (Auto) % (20.0-45.0) Monocytes (%) (Auto) % (1.0-10.0) Eosinophils (%) (Auto) % (0.0-3.0) Basophils (%) (Auto) % (0.0-2.0) Differential Total Cells Counted 100 Neutrophils % (Manual) 89 % (45-75) H Lymphocytes % (Manual) 8 % (20-45) L Monocytes % (Manual) 2 % (1-10) Eosinophils % (Manual) 1 % (0-3) Basophils % (Manual) 0 % (0-2) Band Neutrophils 0 % (0-8) Nucleated Red Blood Cells 8 /100 WBC Platelet Estimate Decreased L Platelet Morphology Normal Hypochromasia 3+ Anisocytosis 3+ Prothrombin Time 60.2 SEC (9.30-11.50) H Prothromb Time International Ratio 5.6 (0.9-1.1) *H Sodium Level 139 MMOL/L (136-145) Potassium Level 4.2 MMOL/L (3.5-5.1) Chloride Level 102 MMOL/L (98-107) Carbon Dioxide Level 15 MMOL/L (21-32) L Anion Gap 22 mmol/L (5-15) H Blood Urea Nitrogen 56 mg/dL (7-18) H Creatinine 6.0 MG/DL (0.55-1.30) H Estimat Glomerular Filtration Rate 10.0 mL/min (>60) Glucose Level 24 MG/DL (74-106) #*L Calcium Level 6.5 MG/DL (8.5-10.1) L Total Bilirubin 4.4 MG/DL (0.2-1.0) H Direct Bilirubin 3.6 MG/DL (0.0-0.3) H Aspartate Amino Transf (AST/SGOT) 590 U/L (15-37) H Alanine Aminotransferase (ALT/SGPT) 85 U/L (12-78) H Alkaline Phosphatase 57 U/L (46-116) Total Protein 5.3 G/DL (6.4-8.2) L Albumin 1.0 G/DL (3.4-5.0) L Globulin 4.3 g/dL ASA DEL CID Nov 23, 2017 11:15
--- NOTE | 2017-11-23 11:32 | Nephrology Progress Note ---
Assessment/Plan Problem List: (1) Acute respiratory failure with hypoxia (2) Acute renal failure (3) Hypotension arterial Assessment Acute renal failure ? due to sepsis low BP on max pressors Acute respiratory failure with hypoxia Lactic acid acidosis Severe anemia Pleural effusion Bilateral pneumonia Severe sepsis Severe HypoAlbuminemai , 3+ Proteinuria bleeding diathesis Plan Plan: dialysed 11/21 hemodynamically unstable for dialysis attempt as BP low on max pressors discussed with RN dismal prognosis favor comfort care Subjective ROS Limited/Unobtainable: Yes Objective Objective Last 24 Hour Vital Signs Date Time Temp Pulse Resp B/P (MAP) Pulse Ox O2 Delivery O2 Flow Rate FiO2 11/23/17 11:06 95 29 100 11/23/17 11:00 93 25 69/25 63 Mechanical Ventilator 100 11/23/17 11:00 69/25 11/23/17 10:30 96 21 67/ 60 Mechanical Ventilator 100 11/23/17 10:00 67/11/23/17 10:00 95 21 64/27 60 Mechanical Ventilator 100 11/23/17 09:32 68/11/23/17 09:30 96 23 70/4 62 Mechanical Ventilator 100 11/23/17 09:00 98 23 64/27 58 Mechanical Ventilator 100 11/23/17 09:00 64/27 11/23/17 08:38 98 29 100 11/23/17 08:30 98 23 69/26 57 Mechanical Ventilator 100 11/23/17 08:00 98.3 99 22 57/22 57 Mechanical Ventilator 100 11/23/17 08:00 99 11/23/17 08:00 68/27 11/23/17 08:00 100 11/23/17 07:30 99 25 63/28 62 Mechanical Ventilator 100 11/23/17 07:23 98 28 100 11/23/17 07:00 77 23 57/22 62 Mechanical Ventilator 100 11/23/17 06:45 76 22 59/22 61 Mechanical Ventilator 100 11/23/17 06:30 70 22 53/19 61 Mechanical Ventilator 100 11/23/17 06:30 67 53/19 11/23/17 06:15 95 22 58/33 61 Mechanical Ventilator 100 11/23/17 06:00 61/24 11/23/17 06:00 94 22 61/24 61 Mechanical Ventilator 100 11/23/17 05:30 95 23 61/26 62 Mechanical Ventilator 100 11/23/17 05:26 96 28 100 11/23/17 05:00 61/25 11/23/17 05:00 96 23 61/25 58 Mechanical Ventilator 100 11/23/17 04:44 67/29 11/23/17 04:30 97 26 67/29 55 Mechanical Ventilator 100 11/23/17 04:00 100 11/23/17 04:00 98.6 93 25 65/27 47 Mechanical Ventilator 100 11/23/17 04:00 65/27 11/23/17 03:30 94 26 67/26 55 Mechanical Ventilator 100 11/23/17 03:28 98 38 100 11/23/17 03:24 82 11/23/17 03:00 70/28 11/23/17 03:00 94 25 71/28 55 Mechanical Ventilator 100 11/23/17 02:30 104 25 74/29 68 Mechanical Ventilator 100 11/23/17 02:11 40 11/23/17 02:00 102 32 68/33 89 Mechanical Ventilator 100 11/23/17 02:00 73/29 11/23/17 01:51 101 39 100 11/23/17 01:30 103 23 65/29 97 Mechanical Ventilator 100 11/23/17 01:00 105 28 64/28 95 Mechanical Ventilator 100 11/23/17 01:00 64/29 11/23/17 00:45 108 26 68/32 95 Mechanical Ventilator 100 11/23/17 00:30 101 26 74/32 53 Mechanical Ventilator 100 11/23/17 00:30 100 11/23/17 00:00 99.8 108 29 74/31 50 Mechanical Ventilator 100 11/23/17 00:00 76/36 11/22/17 23:54 59 28 100 11/22/17 23:30 107 27 76/36 52 Mechanical Ventilator 100 11/22/17 23:00 90 37 81/42 92 Mechanical Ventilator 100 11/22/17 23:00 81/42 11/22/17 22:30 108 38 78/38 90 Mechanical Ventilator 100 11/22/17 22:00 81/33 11/22/17 22:00 108 36 80/36 85 Mechanical Ventilator 100 11/22/17 21:30 107 32 80/33 92 Mechanical Ventilator 100 11/22/17 21:00 113 28 84/35 77 Mechanical Ventilator 100 1/7/18 21:00 84/35 11/22/17 20:48 112 39 100 11/22/17 20:45 104 26 91/41 98 Mechanical Ventilator 100 11/22/17 20:30 106 37 90/48 98 Mechanical Ventilator 100 11/22/17 20:15 105 35 84/36 98 Mechanical Ventilator 100 11/22/17 20:00 105 33 77/34 98 Mechanical Ventilator 100 11/22/17 20:00 77/34 11/22/17 20:00 100 11/22/17 20:00 105 11/22/17 19:45 104 33 69/29 94 Mechanical Ventilator 100 11/22/17 19:30 105 31 63/31 84 Mechanical Ventilator 100 11/22/17 19:19 104 28 100 11/22/17 19:15 99.6 105 30 65/34 82 Mechanical Ventilator 100 11/22/17 19:05 80/34 11/22/17 19:00 102 25 85/35 61 Mechanical Ventilator 100 11/22/17 18:45 103 26 80/35 54 Mechanical Ventilator 100 11/22/17 18:30 105 27 82/34 41 Mechanical Ventilator 100 11/22/17 18:15 107 26 83/37 50 Mechanical Ventilator 100 11/22/17 18:00 106 25 82/33 51 Mechanical Ventilator 100 11/22/17 18:00 82/33 11/22/17 17:45 106 25 80/33 55 Mechanical Ventilator 100 11/22/17 17:30 103 25 80/32 48 Mechanical Ventilator 100 11/22/17 17:15 106 31 71/25 51 Mechanical Ventilator 100 11/22/17 17:00 109 34 94/42 41 Mechanical Ventilator 100 11/22/17 17:00 100 11/22/17 17:00 74/40 11/22/17 16:45 106 44 90/41 55 Mechanical Ventilator 100 11/22/17 16:32 101 29 100 11/22/17 16:30 102 48 80/48 45 Mechanical Ventilator 100 11/22/17 16:15 99 38 71/40 51 Mechanical Ventilator 100 11/22/17 16:00 98.2 107 25 87/40 69 Mechanical Ventilator 100 11/22/17 16:00 107 11/22/17 16:00 83 29 90/42 70 Mechanical Ventilator 100 11/22/17 16:00 87/40 11/22/17 16:00 87/40 11/22/17 16:00 100 11/22/17 15:45 101 31 95/51 71 Mechanical Ventilator 100 11/22/17 15:30 105 29 91/45 70 Mechanical Ventilator 100 11/22/17 15:15 111 27 101/47 72 Mechanical Ventilator 100 11/22/17 15:00 100 30 100 11/22/17 15:00 103 30 94/41 83 Mechanical Ventilator 100 11/22/17 15:00 94/41 11/22/17 14:45 107 26 99/38 78 Mechanical Ventilator 100 11/22/17 14:30 102 24 96/43 82 Mechanical Ventilator 100 11/22/17 14:15 90 35 90/43 86 Mechanical Ventilator 100 11/22/17 14:00 93 29 91/34 80 Mechanical Ventilator 100 11/22/17 14:00 87/34 11/22/17 13:45 92 30 91/42 74 Mechanical Ventilator 100 11/22/17 13:30 92 30 93/41 81 Mechanical Ventilator 100 11/22/17 13:15 90 38 90/42 86 Mechanical Ventilator 100 11/22/17 13:00 91 34 91/43 84 Mechanical Ventilator 100 11/22/17 13:00 88/40 11/22/17 12:45 93 38 91/40 82 Mechanical Ventilator 100 11/22/17 12:35 94 29 100 11/22/17 12:30 94 41 94/41 82 Mechanical Ventilator 100 11/22/17 12:15 92 38 90/40 83 Mechanical Ventilator 100 11/22/17 12:00 97.5 92 40 92/37 84 Mechanical Ventilator 100 11/22/17 12:00 100 11/22/17 12:00 92/37 11/22/17 12:00 92 11/22/17 11:49 94/35 11/22/17 11:45 92 26 88/39 74 Mechanical Ventilator 100 11/22/17 11:30 93 32 90/41 88 Mechanical Ventilator 100 Intake and Output 11/22/17 11/23/17 19:00 07:00 Intake Total 2066.37 ml 2174.75 ml Output Total 15 ml 5 ml Balance 2051.37 ml 2169.75 ml IV Total 2066.37 ml 2174.75 ml Output Urine Total 15 ml 5 ml # Bowel Movements 4 4 Laboratory Tests 11/22/17 12:30: Lactic Acid Level 5.20H 11/22/17 17:14: Arterial Blood pH 6.968*L, Arterial Blood Partial Pressure CO2 67.1*H, Arterial Blood Partial Pressure O2 46.0*L, Arterial Blood HCO3 15.0L, Arterial Blood Oxygen Saturation 17.7L, Arterial Blood Base Excess -16.0, Sigifredo Test Positive 11/22/17 21:00: Uric Acid 7.5H, Total Protein (PEP) [Pending], Albumin (PEP) [Pending], Globulin (PEP) [Pending], Albumin/Globulin Ratio [Pending], Dvqzc-[id number] [ Pending], Dshtu-7-Dhdgmbked [Pending], Beta Globulins [Pending], Beta Gamma Globulin [Pending], PEP Abnormal Protein Bands [Pending], Protein Electrophoresis Interpret [Pending], Heparin-PF4 Antibody Screen [Pending] 11/23/17 05:10: Albumin/Globulin Ratio 0.2L, White Blood Count 31.3*H, Red Blood Count 2.94L, Hemoglobin 7.7L, Hematocrit 25.1L, Mean Corpuscular Volume 85, Mean Corpuscular Hemoglobin 26.1L, Mean Corpuscular Hemoglobin Concent 30.5L, Red Cell Distribution Width 21.0H, Platelet Count 22L, Mean Platelet Volume 10.5H, Neutrophils (%) (Auto) , Lymphocytes (%) (Auto) , Monocytes (%) (Auto) , Eosinophils (%) (Auto) , Basophils (%) (Auto) , Differential Total Cells Counted 100, Neutrophils % (Manual) 89H, Lymphocytes % (Manual) 8L, Monocytes % (Manual) 2, Eosinophils % (Manual) 1, Basophils % (Manual) 0, Band Neutrophils 0 , Nucleated Red Blood Cells 8, Platelet Estimate DecreasedL, Platelet Morphology Normal, Hypochromasia 3+, Anisocytosis 3+, Prothrombin Time 60.2H, Prothromb Time International Ratio 5.6*H, Sodium Level 139, Potassium Level 4.2 , Chloride Level 102, Carbon Dioxide Level 15L, Anion Gap 22H, Blood Urea Nitrogen 56H, Creatinine 6.0H, Estimat Glomerular Filtration Rate 10.0, Glucose Level 24#*L, Calcium Level 6.5L, Total Bilirubin 4.4H, Direct Bilirubin 3.6H, Aspartate Amino Transf (AST/SGOT) 590H, Alanine Aminotransferase (ALT/SGPT) 85H , Alkaline Phosphatase 57, Total Protein 5.3L, Albumin 1.0L, Globulin 4.3 Height (Feet): 5 Height (Inches): 5.00 Weight (Pounds): 214 General Appearance: lethargic Cardiovascular: tachycardia Respiratory/Chest: decreased breath sounds Abdomen: distended SHERRY OLVERA Nov 23, 2017 11:31
--- NOTE | 2017-11-23 12:35 | GI Progress Note ---
Assessment/Plan Problems: (1) GIB (gastrointestinal bleeding) ICD Codes: K92.2 - Gastrointestinal hemorrhage, unspecified SNOMED: 50931924 (2) Cirrhosis ICD Codes: K74.60 - Unspecified cirrhosis of liver SNOMED: 00126398 (3) Severe anemia ICD Codes: D64.9 - Anemia, unspecified SNOMED: 074534062, 178900162 (4) Coagulopathy ICD Codes: D68.9 - Coagulation defect, unspecified SNOMED: 44484092 Status: stable Status Narrative Discussed with Dr. Guadarrama. Assessment/Plan OB positive cdiff negative octreotide>> will taper ppi BID vit k>> given prn blood transfusion not stable for endoscopy Subjective Subjective limited Objective Last 24 Hour Vital Signs Date Time Temp Pulse Resp B/P (MAP) Pulse Ox O2 Delivery O2 Flow Rate FiO2 11/23/17 12:00 99.0 92 23 70/26 63 Mechanical Ventilator 100 11/23/17 12:00 70/26 11/23/17 12:00 100 11/23/17 11:06 95 29 100 11/23/17 11:00 93 25 69/25 63 Mechanical Ventilator 100 11/23/17 11:00 69/25 11/23/17 10:30 96 21 67/26 60 Mechanical Ventilator 100 11/23/17 10:00 67/26 11/23/17 10:00 95 21 64/27 60 Mechanical Ventilator 100 11/23/17 09:32 68/27 11/23/17 09:30 96 23 70/4 62 Mechanical Ventilator 100 11/23/17 09:00 98 23 64/27 58 Mechanical Ventilator 100 11/23/17 09:00 64/11/23/17 08:38 98 29 100 11/23/17 08:30 98 23 69/26 57 Mechanical Ventilator 100 11/23/17 08:00 98.3 99 22 57/22 57 Mechanical Ventilator 100 11/23/17 08:00 99 11/23/17 08:00 68/27 11/23/17 08:00 100 11/23/17 07:30 99 25 63/28 62 Mechanical Ventilator 100 11/23/17 07:23 98 28 100 11/23/17 07:00 77 23 57/22 62 Mechanical Ventilator 100 11/23/17 06:45 76 22 59/22 61 Mechanical Ventilator 100 11/23/17 06:30 70 22 53/19 61 Mechanical Ventilator 100 11/23/17 06:30 67 53/19 11/23/17 06:15 95 22 58/33 61 Mechanical Ventilator 100 11/23/17 06:00 61/24 11/23/17 06:00 94 22 61/24 61 Mechanical Ventilator 100 11/23/17 05:30 95 23 61/26 62 Mechanical Ventilator 100 11/23/17 05:26 96 28 100 11/23/17 05:00 61/25 11/23/17 05:00 96 23 61/25 58 Mechanical Ventilator 100 11/23/17 04:44 67/29 11/23/17 04:30 97 26 67/29 55 Mechanical Ventilator 100 11/23/17 04:00 100 11/23/17 04:00 98.6 93 25 65/27 47 Mechanical Ventilator 100 11/23/17 04:00 65/27 11/23/17 03:30 94 26 67/26 55 Mechanical Ventilator 100 11/23/17 03:28 98 38 100 11/23/17 03:24 82 11/23/17 03:00 70/28 11/23/17 03:00 94 25 71/28 55 Mechanical Ventilator 100 11/23/17 02:30 104 25 74/29 68 Mechanical Ventilator 100 11/23/17 02:11 40 11/23/17 02:00 102 32 68/33 89 Mechanical Ventilator 100 11/23/17 02:00 73/29 11/23/17 01:51 101 39 100 11/23/17 01:30 103 23 65/29 97 Mechanical Ventilator 100 11/23/17 01:00 105 28 64/28 95 Mechanical Ventilator 100 11/23/17 01:00 64/29 11/23/17 00:45 108 26 68/32 95 Mechanical Ventilator 100 11/23/17 00:30 101 26 74/32 53 Mechanical Ventilator 100 11/23/17 00:30 100 11/23/17 00:00 99.8 108 29 74/31 50 Mechanical Ventilator 100 11/23/17 00:00 76/36 11/22/17 23:54 59 28 100 11/22/17 23:30 107 27 76/36 52 Mechanical Ventilator 100 11/22/17 23:00 90 37 81/42 92 Mechanical Ventilator 100 11/22/17 23:00 81/42 11/22/17 22:30 108 38 78/38 90 Mechanical Ventilator 100 11/22/17 22:00 81/33 11/22/17 22:00 108 36 80/36 85 Mechanical Ventilator 100 11/22/17 21:30 107 32 80/33 92 Mechanical Ventilator 100 11/22/17 21:00 113 28 84/35 77 Mechanical Ventilator 100 11/22/17 21:00 84/35 11/22/17 20:48 112 39 100 11/22/17 20:45 104 26 91/41 98 Mechanical Ventilator 100 11/22/17 20:30 106 37 90/48 98 Mechanical Ventilator 100 11/22/17 20:15 105 35 84/36 98 Mechanical Ventilator 100 11/22/17 20:00 105 33 77/34 98 Mechanical Ventilator 100 11/22/17 20:00 77/34 11/22/17 20:00 100 11/22/17 20:00 105 11/22/17 19:45 104 33 69/29 94 Mechanical Ventilator 100 11/22/17 19:30 105 31 63/31 84 Mechanical Ventilator 100 11/22/17 19:19 104 28 100 11/22/17 19:15 99.6 105 30 65/34 82 Mechanical Ventilator 100 11/22/17 19:05 80/34 11/22/17 19:00 102 25 85/35 61 Mechanical Ventilator 100 11/22/17 18:45 103 26 80/35 54 Mechanical Ventilator 100 11/22/17 18:30 105 27 82/34 41 Mechanical Ventilator 100 11/22/17 18:15 107 26 83/37 50 Mechanical Ventilator 100 11/22/17 18:00 106 25 82/33 51 Mechanical Ventilator 100 11/22/17 18:00 82/33 11/22/17 17:45 106 25 80/33 55 Mechanical Ventilator 100 11/22/17 17:30 103 25 80/32 48 Mechanical Ventilator 100 11/22/17 17:15 106 31 71/25 51 Mechanical Ventilator 100 11/22/17 17:00 109 34 94/42 41 Mechanical Ventilator 100 11/22/17 17:00 100 11/22/17 17:00 74/40 11/22/17 16:45 106 44 90/41 55 Mechanical Ventilator 100 11/22/17 16:32 101 29 100 11/22/17 16:30 102 48 80/48 45 Mechanical Ventilator 100 11/22/17 16:15 99 38 71/40 51 Mechanical Ventilator 100 11/22/17 16:00 98.2 107 25 87/40 69 Mechanical Ventilator 100 11/22/17 16:00 107 11/22/17 16:00 83 29 90/42 70 Mechanical Ventilator 100 11/22/17 16:00 87/40 11/22/17 16:00 87/40 11/22/17 16:00 100 11/22/17 15:45 101 31 95/51 71 Mechanical Ventilator 100 11/22/17 15:30 105 29 91/45 70 Mechanical Ventilator 100 11/22/17 15:15 111 27 101/47 72 Mechanical Ventilator 100 11/22/17 15:00 100 30 100 11/22/17 15:00 103 30 94/41 83 Mechanical Ventilator 100 11/22/17 15:00 94/41 11/22/17 14:45 107 26 99/38 78 Mechanical Ventilator 100 11/22/17 14:30 102 24 96/43 82 Mechanical Ventilator 100 11/22/17 14:15 90 35 90/43 86 Mechanical Ventilator 100 11/22/17 14:00 93 29 91/34 80 Mechanical Ventilator 100 11/22/17 14:00 87/34 11/22/17 13:45 92 30 91/42 74 Mechanical Ventilator 100 11/22/17 13:30 92 30 93/41 81 Mechanical Ventilator 100 11/22/17 13:15 90 38 90/42 86 Mechanical Ventilator 100 11/22/17 13:00 91 34 91/43 84 Mechanical Ventilator 100 11/22/17 13:00 88/40 11/22/17 12:45 93 38 91/40 82 Mechanical Ventilator 100 11/22/17 12:35 94 29 100 Intake and Output 11/22/17 11/23/17 19:00 07:00 Intake Total 2066.37 ml 2174.75 ml Output Total 15 ml 5 ml Balance 2051.37 ml 2169.75 ml IV Total 2066.37 ml 2174.75 ml Output Urine Total 15 ml 5 ml # Bowel Movements 4 4 Laboratory Tests Test 11/22/17 17:14 11/22/17 21:00 11/23/17 05:10 Arterial Blood pH 6.968 (7.350-7.450) Arterial Blood Partial Pressure CO2 67.1 mmHg (35.0-45.0) *H Arterial Blood Partial Pressure O2 46.0 mmHg (75.0-100.0) Arterial Blood HCO3 15.0 mmol/L (22.0-26.0) L Arterial Blood Oxygen Saturation 17.7 % (92.0-98.0) L Arterial Blood Base Excess -16.0 Sigifredo Test Positive Uric Acid 7.5 MG/DL (2.6-7.2) H Total Protein (PEP) Pending Albumin (PEP) Pending Globulin (PEP) Pending Albumin/Globulin Ratio Pending 0.2 (1.0-2.7) L Ygjxz-4-Qqpvykbcm Pending Fqedg-5-Weytoivva Pending Beta Globulins Pending Beta Gamma Globulin Pending PEP Abnormal Protein Bands Pending Protein Electrophoresis Interpret Pending Heparin-PF4 Antibody Screen Pending White Blood Count 31.3 K/UL (4.8-10.8) *H Red Blood Count 2.94 M/UL (4.70-6.10) L Hemoglobin 7.7 G/DL (14.2-18.0) L Hematocrit 25.1 % (42.0-52.0) L Mean Corpuscular Volume 85 FL (80-99) Mean Corpuscular Hemoglobin 26.1 PG (27.0-31.0) L Mean Corpuscular Hemoglobin Concent 30.5 G/DL (32.0-36.0) L Red Cell Distribution Width 21.0 % (11.6-14.8) H Platelet Count 22 K/UL (150-450) L Mean Platelet Volume 10.5 FL (6.5-10.1) H Neutrophils (%) (Auto) % (45.0-75.0) Lymphocytes (%) (Auto) % (20.0-45.0) Monocytes (%) (Auto) % (1.0-10.0) Eosinophils (%) (Auto) % (0.0-3.0) Basophils (%) (Auto) % (0.0-2.0) Differential Total Cells Counted 100 Neutrophils % (Manual) 89 % (45-75) H Lymphocytes % (Manual) 8 % (20-45) L Monocytes % (Manual) 2 % (1-10) Eosinophils % (Manual) 1 % (0-3) Basophils % (Manual) 0 % (0-2) Band Neutrophils 0 % (0-8) Nucleated Red Blood Cells 8 /100 WBC Platelet Estimate Decreased L Platelet Morphology Normal Hypochromasia 3+ Anisocytosis 3+ Prothrombin Time 60.2 SEC (9.30-11.50) H Prothromb Time International Ratio 5.6 (0.9-1.1) *H Sodium Level 139 MMOL/L (136-145) Potassium Level 4.2 MMOL/L (3.5-5.1) Chloride Level 102 MMOL/L (98-107) Carbon Dioxide Level 15 MMOL/L (21-32) L Anion Gap 22 mmol/L (5-15) H Blood Urea Nitrogen 56 mg/dL (7-18) H Creatinine 6.0 MG/DL (0.55-1.30) H Estimat Glomerular Filtration Rate 10.0 mL/min (>60) Glucose Level 24 MG/DL (74-106) #*L Calcium Level 6.5 MG/DL (8.5-10.1) L Total Bilirubin 4.4 MG/DL (0.2-1.0) H Direct Bilirubin 3.6 MG/DL (0.0-0.3) H Aspartate Amino Transf (AST/SGOT) 590 U/L (15-37) H Alanine Aminotransferase (ALT/SGPT) 85 U/L (12-78) H Alkaline Phosphatase 57 U/L (46-116) Total Protein 5.3 G/DL (6.4-8.2) L Albumin 1.0 G/DL (3.4-5.0) L Globulin 4.3 g/dL Height (Feet): 5 Height (Inches): 5.00 Weight (Pounds): 214 Cardiovascular: normal rate Respiratory/Chest: other - mech vent Abdominal Exam: soft, other - OGT Extremities: non-tender Yamila Israel N.Kezia Nov 23, 2017 12:35
[2017-11-23] MEDS: Hydrocortisone 100mg Inj IV SCH ×2 (13:54→22:25)
--- NOTE | 2017-11-23 14:45 | General Progress Note ---
Assessment/Plan Problem List: (1) Pleural effusion ICD Codes: J90 - Pleural effusion, not elsewhere classified SNOMED: 93315943, 693715017 (2) Lactic acid acidosis ICD Codes: E87.2 - Acidosis SNOMED: 56024952, 535038791 (3) Bilateral pneumonia ICD Codes: J18.9 - Pneumonia, unspecified organism SNOMED: 100997274 (4) Acute respiratory failure with hypoxia ICD Codes: J96.01 - Acute respiratory failure with hypoxia SNOMED: 96011908, 082690919 (5) Severe anemia ICD Codes: D64.9 - Anemia, unspecified SNOMED: 630204986, 894280615 (6) Severe sepsis ICD Codes: A41.9 - Sepsis, unspecified organism; R65.20 - Severe sepsis without septic shock SNOMED: 40312018 Status: unchanged Assessment/Plan vent abx neph f/u bp control cbc bmp in am Subjective Constitutional: Reports: weakness Allergies: Coded Allergies: No Known Allergies (Unverified , 11/18/17) All Systems: reviewed and negative except above Subjective intub sedated in icu Objective Last 24 Hour Vital Signs Date Time Temp Pulse Resp B/P (MAP) Pulse Ox O2 Delivery O2 Flow Rate FiO2 11/23/17 14:30 89 26 66/31 54 Mechanical Ventilator 100 11/23/17 14:05 68/25 11/23/17 14:00 87 23 62/25 55 Mechanical Ventilator 100 11/23/17 14:00 65/11/23/17 13:30 90 23 67/24 58 Mechanical Ventilator 100 11/23/17 13:26 95 26 100 11/23/17 13:00 94 24 73/25 66 Mechanical Ventilator 100 11/23/17 13:00 66/31 11/23/17 12:30 91 24 72/33 65 Mechanical Ventilator 100 11/23/17 12:08 93 11/23/17 12:00 99.0 92 23 70/26 63 Mechanical Ventilator 100 11/23/17 12:00 70/26 11/23/17 12:00 100 11/23/17 11:30 92 24 70/29 62 Mechanical Ventilator 100 11/23/17 11:06 95 29 100 11/23/17 11:00 93 25 69/25 63 Mechanical Ventilator 100 11/23/17 11:00 69/25 11/23/17 10:30 96 21 67/26 60 Mechanical Ventilator 100 11/23/17 10:00 67/26 11/23/17 10:00 95 21 64/27 60 Mechanical Ventilator 100 11/23/17 09:32 68/27 11/23/17 09:30 96 23 70/4 62 Mechanical Ventilator 100 11/23/17 09:00 98 23 64/27 58 Mechanical Ventilator 100 11/23/17 09:00 64/27 11/23/17 08:38 98 29 100 11/23/17 08:30 98 23 69/26 57 Mechanical Ventilator 100 11/23/17 08:00 98.3 99 22 57/22 57 Mechanical Ventilator 100 11/23/17 08:00 99 11/23/17 08:00 68/11/23/17 08:00 100 11/23/17 07:30 99 25 63/28 62 Mechanical Ventilator 100 11/23/17 07:23 98 28 100 11/23/17 07:00 77 23 57/22 62 Mechanical Ventilator 100 11/23/17 06:45 76 22 59/22 61 Mechanical Ventilator 100 11/23/17 06:30 70 22 53/19 61 Mechanical Ventilator 100 11/23/17 06:30 67 53/19 11/23/17 06:15 95 22 58/33 61 Mechanical Ventilator 100 11/23/17 06:00 61/24 11/23/17 06:00 94 22 61/24 61 Mechanical Ventilator 100 11/23/17 05:30 95 23 61/26 62 Mechanical Ventilator 100 11/23/17 05:26 96 28 100 11/23/17 05:00 61/25 11/23/17 05:00 96 23 61/25 58 Mechanical Ventilator 100 11/23/17 04:44 67/29 11/23/17 04:30 97 26 67/29 55 Mechanical Ventilator 100 11/23/17 04:00 100 11/23/17 04:00 98.6 93 25 65/27 47 Mechanical Ventilator 100 11/23/17 04:00 65/27 11/23/17 03:30 94 26 67/26 55 Mechanical Ventilator 100 11/23/17 03:28 98 38 100 11/23/17 03:24 82 11/23/17 03:00 70/28 11/23/17 03:00 94 25 71/28 55 Mechanical Ventilator 100 11/23/17 02:30 104 25 74/29 68 Mechanical Ventilator 100 11/23/17 02:11 40 11/23/17 02:00 102 32 68/33 89 Mechanical Ventilator 100 11/23/17 02:00 73/29 11/23/17 01:51 101 39 100 11/23/17 01:30 103 23 65/29 97 Mechanical Ventilator 100 11/23/17 01:00 105 28 64/28 95 Mechanical Ventilator 100 11/23/17 01:00 64/29 11/23/17 00:45 108 26 68/32 95 Mechanical Ventilator 100 11/23/17 00:30 101 26 74/32 53 Mechanical Ventilator 100 11/23/17 00:30 100 11/23/17 00:00 99.8 108 29 74/31 50 Mechanical Ventilator 100 11/23/17 00:00 76/36 11/22/17 23:54 59 28 100 11/22/17 23:30 107 27 76/36 52 Mechanical Ventilator 100 11/22/17 23:00 90 37 81/42 92 Mechanical Ventilator 100 11/22/17 23:00 81/42 11/22/17 22:30 108 38 78/38 90 Mechanical Ventilator 100 11/22/17 22:00 81/33 11/22/17 22:00 108 36 80/36 85 Mechanical Ventilator 100 11/22/17 21:30 107 32 80/33 92 Mechanical Ventilator 100 11/22/17 21:00 113 28 84/35 77 Mechanical Ventilator 100 11/22/17 21:00 84/35 11/22/17 20:48 112 39 100 11/22/17 20:45 104 26 91/41 98 Mechanical Ventilator 100 11/22/17 20:30 106 37 90/48 98 Mechanical Ventilator 100 11/22/17 20:15 105 35 84/36 98 Mechanical Ventilator 100 11/22/17 20:00 105 33 77/34 98 Mechanical Ventilator 100 11/22/17 20:00 77/34 11/22/17 20:00 100 11/22/17 20:00 105 11/22/17 19:45 104 33 69/29 94 Mechanical Ventilator 100 11/22/17 19:30 105 31 63/31 84 Mechanical Ventilator 100 11/22/17 19:19 104 28 100 11/22/17 19:15 99.6 105 30 65/34 82 Mechanical Ventilator 100 11/22/17 19:05 80/34 11/22/17 19:00 102 25 85/35 61 Mechanical Ventilator 100 11/22/17 18:45 103 26 80/35 54 Mechanical Ventilator 100 11/22/17 18:30 105 27 82/34 41 Mechanical Ventilator 100 11/22/17 18:15 107 26 83/37 50 Mechanical Ventilator 100 11/22/17 18:00 106 25 82/33 51 Mechanical Ventilator 100 18 18:00 82/33 11/22/17 17:45 106 25 80/33 55 Mechanical Ventilator 100 11/22/17 17:30 103 25 80/32 48 Mechanical Ventilator 100 11/22/17 17:15 106 31 71/25 51 Mechanical Ventilator 100 11/22/17 17:00 109 34 94/42 41 Mechanical Ventilator 100 11/22/17 17:00 100 11/22/17 17:00 74/40 11/22/17 16:45 106 44 90/41 55 Mechanical Ventilator 100 11/22/17 16:32 101 29 100 11/22/17 16:30 102 48 80/48 45 Mechanical Ventilator 100 11/22/17 16:15 99 38 71/40 51 Mechanical Ventilator 100 11/22/17 16:00 98.2 107 25 87/40 69 Mechanical Ventilator 100 11/22/17 16:00 107 11/22/17 16:00 83 29 90/42 70 Mechanical Ventilator 100 11/22/17 16:00 87/40 11/22/17 16:00 87/40 11/22/17 16:00 100 11/22/17 15:45 101 31 95/51 71 Mechanical Ventilator 100 11/22/17 15:30 105 29 91/45 70 Mechanical Ventilator 100 11/22/17 15:15 111 27 101/47 72 Mechanical Ventilator 100 11/22/17 15:00 100 30 100 11/22/17 15:00 103 30 94/41 83 Mechanical Ventilator 100 11/22/17 15:00 94/41 11/22/17 14:45 107 26 99/38 78 Mechanical Ventilator 100 Intake and Output 11/22/17 11/23/17 19:00 07:00 Intake Total 2066.37 ml 2174.75 ml Output Total 15 ml 5 ml Balance 2051.37 ml 2169.75 ml IV Total 2066.37 ml 2174.75 ml Output Urine Total 15 ml 5 ml # Bowel Movements 4 4 Laboratory Tests 11/22/17 17:14: Arterial Blood pH 6.968*L, Arterial Blood Partial Pressure CO2 67.1*H, Arterial Blood Partial Pressure O2 46.0*L, Arterial Blood HCO3 15.0L, Arterial Blood Oxygen Saturation 17.7L, Arterial Blood Base Excess -16.0, Sigifredo Test Positive 11/22/17 21:00: Uric Acid 7.5H, Total Protein (PEP) [Pending], Albumin (PEP) [Pending], Globulin (PEP) [Pending], Albumin/Globulin Ratio [Pending], Mksga-4-Kdcflzlmn [ Pending], Zhstc-0-Wirswiyfw [Pending], Beta Globulins [Pending], Beta Gamma Globulin [Pending], PEP Abnormal Protein Bands [Pending], Protein Electrophoresis Interpret [Pending], Heparin-PF4 Antibody Screen [Pending] 11/23/17 05:10: Albumin/Globulin Ratio 0.2L, White Blood Count 31.3*H, Red Blood Count 2.94L, Hemoglobin 7.7L, Hematocrit 25.1L, Mean Corpuscular Volume 85, Mean Corpuscular Hemoglobin 26.1L, Mean Corpuscular Hemoglobin Concent 30.5L, Red Cell Distribution Width 21.0H, Platelet Count 22L, Mean Platelet Volume 10.5H, Neutrophils (%) (Auto) , Lymphocytes (%) (Auto) , Monocytes (%) (Auto) , Eosinophils (%) (Auto) , Basophils (%) (Auto) , Differential Total Cells Counted 100, Neutrophils % (Manual) 89H, Lymphocytes % (Manual) 8L, Monocytes % (Manual) 2, Eosinophils % (Manual) 1, Basophils % (Manual) 0, Band Neutrophils 0 , Nucleated Red Blood Cells 8, Platelet Estimate DecreasedL, Platelet Morphology Normal, Hypochromasia 3+, Anisocytosis 3+, Prothrombin Time 60.2H, Prothromb Time International Ratio 5.6*H, Sodium Level 139, Potassium Level 4.2 , Chloride Level 102, Carbon Dioxide Level 15L, Anion Gap 22H, Blood Urea Nitrogen 56H, Creatinine 6.0H, Estimat Glomerular Filtration Rate 10.0, Glucose Level 24#*L, Calcium Level 6.5L, Total Bilirubin 4.4H, Direct Bilirubin 3.6H, Aspartate Amino Transf (AST/SGOT) 590H, Alanine Aminotransferase (ALT/SGPT) 85H , Alkaline Phosphatase 57, Total Protein 5.3L, Albumin 1.0L, Globulin 4.3 Height (Feet): 5 Height (Inches): 5.00 Weight (Pounds): 214 General Appearance: lethargic EENT: normal ENT inspection Neck: normal alignment Cardiovascular: normal peripheral pulses, normal rate, regular rhythm Respiratory/Chest: decreased breath sounds Abdomen: normal bowel sounds, non tender, soft Extremities: normal inspection Edema: no edema noted Arm (L), no edema noted Arm (R), no edema noted Leg (L), no edema noted Leg (R), no edema noted Pedal (L), no edema noted Pedal (R), no edema noted Generalized Neurologic: motor weakness Skin: normal pigmentation, warm/dry PILAR TABOR Nov 23, 2017 14:45
--- NOTE | 2017-11-23 14:51 | Infectious Diseases Prog Note ---
Assessment/Plan Assessment/Plan A; Septic shock Pneumococcal sepsis GI bleeding Acute renal failure Hypoxic respiratory failure Cirrhosis P; Continue Rocephin Poor Prognosis Subjective ROS Limited/Unobtainable: Yes Cardiovascular: Reports: other - hypotensive, on maximal dose of pressors Allergies: Coded Allergies: No Known Allergies (Unverified , 11/18/17) Objective Vital Signs Last 24 Hour Vital Signs Date Time Temp Pulse Resp B/P (MAP) Pulse Ox O2 Delivery O2 Flow Rate FiO2 11/23/17 14:30 89 26 66/31 54 Mechanical Ventilator 100 11/23/17 14:05 68/25 11/23/17 14:00 87 23 62/25 55 Mechanical Ventilator 100 11/23/17 14:00 65/25 11/23/17 13:30 90 23 67/24 58 Mechanical Ventilator 100 11/23/17 13:26 95 26 100 11/23/17 13:00 94 24 73/25 66 Mechanical Ventilator 100 11/23/17 13:00 66/31 11/23/17 12:30 91 24 72/33 65 Mechanical Ventilator 100 11/23/17 12:08 93 11/23/17 12:00 99.0 92 23 70/26 63 Mechanical Ventilator 100 11/23/17 12:00 70/26 11/23/17 12:00 100 11/23/17 11:30 92 24 70/29 62 Mechanical Ventilator 100 11/23/17 11:06 95 29 100 11/23/17 11:00 93 25 69/25 63 Mechanical Ventilator 100 11/23/17 11:00 69/25 11/23/17 10:30 96 21 67/26 60 Mechanical Ventilator 100 11/23/17 10:00 67/26 11/23/17 10:00 95 21 64/27 60 Mechanical Ventilator 100 11/23/17 09:32 68/27 11/23/17 09:30 96 23 70/4 62 Mechanical Ventilator 100 11/23/17 09:00 98 23 64/27 58 Mechanical Ventilator 100 11/23/17 09:00 64/11/23/17 08:38 98 29 100 11/23/17 08:30 98 23 69/26 57 Mechanical Ventilator 100 11/23/17 08:00 98.3 99 22 57/22 57 Mechanical Ventilator 100 11/23/17 08:00 99 11/23/17 08:00 68/27 11/23/17 08:00 100 11/23/17 07:30 99 25 63/28 62 Mechanical Ventilator 100 11/23/17 07:23 98 28 100 11/23/17 07:00 77 23 57/22 62 Mechanical Ventilator 100 11/23/17 06:45 76 22 59/22 61 Mechanical Ventilator 100 11/23/17 06:30 70 22 53/19 61 Mechanical Ventilator 100 11/23/17 06:30 67 53/19 11/23/17 06:15 95 22 58/33 61 Mechanical Ventilator 100 11/23/17 06:00 61/24 11/23/17 06:00 94 22 61/24 61 Mechanical Ventilator 100 11/23/17 05:30 95 23 61/ 62 Mechanical Ventilator 100 11/23/17 05:26 96 28 100 11/23/17 05:00 61/25 11/23/17 05:00 96 23 61/25 58 Mechanical Ventilator 100 11/23/17 04:44 67/29 11/23/17 04:30 97 26 67/29 55 Mechanical Ventilator 100 11/23/17 04:00 100 11/23/17 04:00 98.6 93 25 65/27 47 Mechanical Ventilator 100 11/23/17 04:00 65/27 11/23/17 03:30 94 26 67/26 55 Mechanical Ventilator 100 11/23/17 03:28 98 38 100 11/23/17 03:24 82 11/23/17 03:00 70/28 11/23/17 03:00 94 25 71/28 55 Mechanical Ventilator 100 11/23/17 02:30 104 25 74/29 68 Mechanical Ventilator 100 11/23/17 02:11 40 11/23/17 02:00 102 32 68/33 89 Mechanical Ventilator 100 11/23/17 02:00 73/29 11/23/17 01:51 101 39 100 11/23/17 01:30 103 23 65/29 97 Mechanical Ventilator 100 11/23/17 01:00 105 28 64/28 95 Mechanical Ventilator 100 11/23/17 01:00 64/29 11/23/17 00:45 108 26 68/32 95 Mechanical Ventilator 100 11/23/17 00:30 101 26 74/32 53 Mechanical Ventilator 100 11/23/17 00:30 100 11/23/17 00:00 99.8 108 29 74/31 50 Mechanical Ventilator 100 11/23/17 00:00 76/36 11/22/17 23:54 59 28 100 11/22/17 23:30 107 27 76/36 52 Mechanical Ventilator 100 11/22/17 23:00 90 37 81/42 92 Mechanical Ventilator 100 11/22/17 23:00 81/42 11/22/17 22:30 108 38 78/38 90 Mechanical Ventilator 100 11/22/17 22:00 81/33 11/22/17 22:00 108 36 80/36 85 Mechanical Ventilator 100 11/22/17 21:30 107 32 80/33 92 Mechanical Ventilator 100 11/22/17 21:00 113 28 84/35 77 Mechanical Ventilator 100 11/22/17 21:00 84/35 11/22/17 20:48 112 39 100 11/22/17 20:45 104 26 91/41 98 Mechanical Ventilator 100 11/22/17 20:30 106 37 90/48 98 Mechanical Ventilator 100 11/22/17 20:15 105 35 84/36 98 Mechanical Ventilator 100 11/22/17 20:00 105 33 77/34 98 Mechanical Ventilator 100 11/22/17 20:00 77/34 11/22/17 20:00 100 11/22/17 20:00 105 11/22/17 19:45 104 33 69/29 94 Mechanical Ventilator 100 11/22/17 19:30 105 31 63/31 84 Mechanical Ventilator 100 11/22/17 19:19 104 28 100 11/22/17 19:15 99.6 105 30 65/34 82 Mechanical Ventilator 100 11/22/17 19:05 80/34 11/22/17 19:00 102 25 85/35 61 Mechanical Ventilator 100 11/22/17 18:45 103 26 80/35 54 Mechanical Ventilator 100 11/22/17 18:30 105 27 82/34 41 Mechanical Ventilator 100 11/22/17 18:15 107 26 83/37 50 Mechanical Ventilator 100 11/22/17 18:00 106 25 82/33 51 Mechanical Ventilator 100 18 18:00 82/33 11/22/17 17:45 106 25 80/33 55 Mechanical Ventilator 100 11/22/17 17:30 103 25 80/32 48 Mechanical Ventilator 100 11/22/17 17:15 106 31 71/25 51 Mechanical Ventilator 100 11/22/17 17:00 109 34 94/42 41 Mechanical Ventilator 100 11/22/17 17:00 100 11/22/17 17:00 74/40 11/22/17 16:45 106 44 90/41 55 Mechanical Ventilator 100 11/22/17 16:32 101 29 100 11/22/17 16:30 102 48 80/48 45 Mechanical Ventilator 100 11/22/17 16:15 99 38 71/40 51 Mechanical Ventilator 100 11/22/17 16:00 98.2 107 25 87/40 69 Mechanical Ventilator 100 11/22/17 16:00 107 11/22/17 16:00 83 29 90/42 70 Mechanical Ventilator 100 11/22/17 16:00 87/40 11/22/17 16:00 87/40 11/22/17 16:00 100 11/22/17 15:45 101 31 95/51 71 Mechanical Ventilator 100 11/22/17 15:30 105 29 91/45 70 Mechanical Ventilator 100 11/22/17 15:15 111 27 101/47 72 Mechanical Ventilator 100 11/22/17 15:00 100 30 100 11/22/17 15:00 103 30 94/41 83 Mechanical Ventilator 100 11/22/17 15:00 94/41 Height (Feet): 5 Height (Inches): 5.00 Weight (Pounds): 214 HEENT: other - orally intubatd Respiratory/Chest: respiratory distress, decreased breath sounds Cardiovascular: normal rate, other - R femoral HD Abdomen: distended, other - NG to suction Extremities: other - generalized edema Neurologic/Psychiatric: unresponsiveness Microbiology Date/Time Source Procedure Growth Status 11/21/17 04:20 Stool Clostridium difficile Toxin Assay - Final Complete 11/20/17 23:30 Stool Clostridium difficile Toxin Assay - Final Complete Laboratory Tests Test 11/22/17 17:14 11/22/17 21:00 11/23/17 05:10 Arterial Blood pH 6.968 (7.350-7.450) Arterial Blood Partial Pressure CO2 67.1 mmHg (35.0-45.0) *H Arterial Blood Partial Pressure O2 46.0 mmHg (75.0-100.0) Arterial Blood HCO3 15.0 mmol/L (22.0-26.0) L Arterial Blood Oxygen Saturation 17.7 % (92.0-98.0) L Arterial Blood Base Excess -16.0 Sigifredo Test Positive Uric Acid 7.5 MG/DL (2.6-7.2) H Total Protein (PEP) Pending Albumin (PEP) Pending Globulin (PEP) Pending Albumin/Globulin Ratio Pending 0.2 (1.0-2.7) L [id number] Pending [id number] Pending Beta Globulins Pending Beta Gamma Globulin Pending PEP Abnormal Protein Bands Pending Protein Electrophoresis Interpret Pending Heparin-PF4 Antibody Screen Pending White Blood Count 31.3 K/UL (4.8-10.8) *H Red Blood Count 2.94 M/UL (4.70-6.10) L Hemoglobin 7.7 G/DL (14.2-18.0) L Hematocrit 25.1 % (42.0-52.0) L Mean Corpuscular Volume 85 FL (80-99) Mean Corpuscular Hemoglobin 26.1 PG (27.0-31.0) L Mean Corpuscular Hemoglobin Concent 30.5 G/DL (32.0-36.0) L Red Cell Distribution Width 21.0 % (11.6-14.8) H Platelet Count 22 K/UL (150-450) L Mean Platelet Volume 10.5 FL (6.5-10.1) H Neutrophils (%) (Auto) % (45.0-75.0) Lymphocytes (%) (Auto) % (20.0-45.0) Monocytes (%) (Auto) % (1.0-10.0) Eosinophils (%) (Auto) % (0.0-3.0) Basophils (%) (Auto) % (0.0-2.0) Differential Total Cells Counted 100 Neutrophils % (Manual) 89 % (45-75) H Lymphocytes % (Manual) 8 % (20-45) L Monocytes % (Manual) 2 % (1-10) Eosinophils % (Manual) 1 % (0-3) Basophils % (Manual) 0 % (0-2) Band Neutrophils 0 % (0-8) Nucleated Red Blood Cells 8 /100 WBC Platelet Estimate Decreased L Platelet Morphology Normal Hypochromasia 3+ Anisocytosis 3+ Prothrombin Time 60.2 SEC (9.30-11.50) H Prothromb Time International Ratio 5.6 (0.9-1.1) *H Sodium Level 139 MMOL/L (136-145) Potassium Level 4.2 MMOL/L (3.5-5.1) Chloride Level 102 MMOL/L (98-107) Carbon Dioxide Level 15 MMOL/L (21-32) L Anion Gap 22 mmol/L (5-15) H Blood Urea Nitrogen 56 mg/dL (7-18) H Creatinine 6.0 MG/DL (0.55-1.30) H Estimat Glomerular Filtration Rate 10.0 mL/min (>60) Glucose Level 24 MG/DL (74-106) #*L Calcium Level 6.5 MG/DL (8.5-10.1) L Total Bilirubin 4.4 MG/DL (0.2-1.0) H Direct Bilirubin 3.6 MG/DL (0.0-0.3) H Aspartate Amino Transf (AST/SGOT) 590 U/L (15-37) H Alanine Aminotransferase (ALT/SGPT) 85 U/L (12-78) H Alkaline Phosphatase 57 U/L (46-116) Total Protein 5.3 G/DL (6.4-8.2) L Albumin 1.0 G/DL (3.4-5.0) L Globulin 4.3 g/dL Current Medications Medications (Trade) Dose Ordered Sig/Clarisse Route PRN Reason Start Time Stop Time Status Last Admin Dose Admin Acetaminophen (Tylenol) 650 mg Q4H PRN ORAL fever 11/18/17 23:00 12/18/17 22:59 Acetaminophen (Tylenol) 650 mg Q4H PRN RECTAL Mild Pain (Pain Scale 1-3) 11/19/17 20:15 12/19/17 20:14 11/19/17 20:20 Albuterol/ Ipratropium (Albuterol/ Ipratropium) 3 ml EVERY 4 HOURS PRN HHN Shortness of Breath 11/22/17 12:15 11/27/17 23:59 Ceftriaxone Sodium 2 gm/ Dextrose 55 ml @ 110 mls/hr Q24H IVPB 11/21/17 15:30 11/28/17 15:29 11/22/17 15:54 Chlorhexidine Gluconate (Rachelle-Hex 2%) 1 applic DAILY@2000 TOPIC 11/22/17 20:00 12/22/17 19:59 11/22/17 20:18 Dextrose (Dextrose 50%) 50 ml PRN PRN IV Hypoglycemia 11/20/17 10:00 12/20/17 09:59 11/23/17 11:36 Dextrose/Sodium Chloride 1,000 ml @ 75 mls/hr [id number] IV 11/20/17 11:45 12/20/17 11:44 11/23/17 05:32 Hydrocortisone (Solu-CORTEF) 100 mg EVERY 8 HOURS IV 11/23/17 14:00 12/23/17 13:59 11/23/17 13:54 Lorazepam (Ativan 2mg/ml 1ml) 2 mg EVERY 2 HOURS PRN IV For Anxiety 11/18/17 23:00 11/25/17 22:59 11/20/17 03:42 Morphine Sulfate (Morphine Sulfate) 4 mg EVERY 4 HOURS PRN IVP Severe Pain (Pain Scale 7-10) 11/18/17 23:00 11/25/17 22:59 Norepinephrine Bitartrate 8 mg/ Dextrose 250 ml @ 0 mls/hr Q24H IV 11/22/17 18:30 12/22/17 18:29 11/23/17 14:05 Octreotide Acetate 500 mcg/ Sodium Chloride 500 ml @ 50 mls/hr Q10H IV 11/21/17 13:30 12/21/17 13:29 11/23/17 05:31 Ondansetron HCl (Zofran) 4 mg Q6H PRN IVP Nausea & Vomiting 11/18/17 23:00 12/18/17 22:59 11/21/17 23:19 Pantoprazole (Protonix) 40 mg Q12HR IVP 11/23/17 21:00 12/23/17 20:59 Phenylephrine HCl 100 mg/Dextrose 250 ml @ 0 mls/hr Q24H IV 11/23/17 06:15 12/23/17 06:14 11/23/17 06:30 Phytonadione (Vitamin K) 10 mg DAILY SUBQ 11/22/17 20:00 11/25/17 23:59 11/23/17 08:52 Polyethylene Glycol (Miralax) 17 gm DAILYPRN PRN ORAL Constipation 11/18/17 23:00 12/18/17 22:59 SHELDON TSE Nov 23, 2017 14:51
[2017-11-23] MEDS: cefTRIAXone 2 GM in D5W 55 ML IVPB SCH (15:31)
[2017-11-23] MEDS ORDERED: Octreotide Acetate 500 MCG in Sodium Chloride 500ML 499 ML IV SCH (16:00)
[2017-11-23] MEDS: Dyna-Hex 2% Top Sol 2oz TOPIC SCH (20:10)
[2017-11-23] MEDS ORDERED: Pantoprazole Inj IVP SCH (21:00)
--- NOTE | 2017-11-23 22:51 | General Progress Note ---
Assessment/Plan Status: unchanged Assessment/Plan 1. Thrombocytopenia, likely secondary to underlying sepsis. Reviewed the patient's peripheral smear. Continue the patient on broad-spectrum antibiotics as per ID Service. Continue ceftriaxone as well as vasopressors as well as Levophed and octreotide drip. Platelet goal above 20,000 if having a fever. 2. 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 Obtain mixing study. Results are pending. 3. Severe anemia secondary to chronic disease. Continue to closely monitor. Anemia workup has been reviewed. 4. Anemia secondary to kidney disease. Hemoglobin goal is above 7. The patient requires further dialysis. Administer Epogen. Currently does not require iron. 5. Acute hypoxic respiratory failure, required intubation. 6. Sepsis with bacteremia and Streptococcus pneumoniae. 7. Lactic acidosis. Continues to persist. 8. Liver cirrhosis and liver failure. 9. Extremely poor prognosis. Continue intensive care unit care. Subjective Date patient seen: Nov 23, 2017 Constitutional: Denies: no symptoms, chills, diaphoresis, fever, malaise, weakness, other HEENT: Denies: no symptoms, eye pain, blurred vision, tearing, double vision, ear pain, ear discharge, nose pain, nose congestion, throat pain, throat swelling, mouth pain, mouth swelling, other Cardiovascular: Denies: no symptoms, chest pain, edema, irregular heart rate, lightheadedness, palpitations, syncope, other Respiratory: Denies: no symptoms, cough, orthopnea, shortness of breath, SOB with excertion, SOB at rest, sputum, stridor, wheezing, other Gastrointestinal/Abdominal: Denies: no symptoms, abdomen distended, abdominal pain, black stools, tarry stools, blood in stool, constipated, diarrhea, difficulty swallowing, nausea, poor appetite, poor fluid intake, rectal bleeding , vomiting, other Genitourinary: Denies: no symptoms, burning, discharge, frequency, flank pain, hematuria, incontinence, pain, urgency, other Hematologic/Lymphatic: Reports: anemia Allergies: Coded Allergies: No Known Allergies (Unverified , 11/18/17) Subjective On antibiotics. No fever or chills. On pressors. Objective Last 24 Hour Vital Signs Date Time Temp Pulse Resp B/P (MAP) Pulse Ox O2 Delivery O2 Flow Rate FiO2 11/23/17 22:30 80 23 71/22 31 Mechanical Ventilator 100 11/23/17 22:00 73 26 75/25 35 Mechanical Ventilator 100 11/23/17 21:30 76 24 73/26 48 Mechanical Ventilator 100 11/23/17 21:00 71/25 11/23/17 21:00 79 26 71/25 48 Mechanical Ventilator 100 11/23/17 20:37 80 21 100 11/23/17 20:30 83 26 74/22 56 Mechanical Ventilator 100 11/23/17 20:00 100 11/23/17 20:00 83 26 74/22 56 Mechanical Ventilator 100 11/23/17 20:00 71/26 11/23/17 20:00 95.9 82 28 71/26 55 Mechanical Ventilator 100 11/23/17 20:00 82 11/23/17 19:30 84 22 72/25 63 Mechanical Ventilator 100 11/23/17 19:30 82 24 100 11/23/17 19:00 75/28 11/23/17 19:00 86 14 75/28 63 Mechanical Ventilator 100 11/23/17 18:30 82 24 74/29 57 Mechanical Ventilator 100 11/23/17 18:28 71/37 11/23/17 18:00 71/27 11/23/17 18:00 85 24 71/27 46 Mechanical Ventilator 100 11/23/17 17:30 83 25 69/24 42 Mechanical Ventilator 100 11/23/17 17:11 84 29 100 11/23/17 17:00 /11/23/17 17:00 83 23 71/26 42 Mechanical Ventilator 100 11/23/17 16:30 85 24 71/26 44 Mechanical Ventilator 100 11/23/17 16:11 86 70/27 11/23/17 16:00 100 11/23/17 16:00 99.0 86 26 68/24 48 Mechanical Ventilator 100 11/23/17 16:00 70/27 11/23/17 15:37 84 11/23/17 15:30 85 25 69/25 48 Mechanical Ventilator 100 11/23/17 15:26 87 28 100 11/23/17 15:00 69/25 11/23/17 15:00 89 26 65/26 54 Mechanical Ventilator 100 11/23/17 14:30 89 26 66/31 54 Mechanical Ventilator 100 11/23/17 14:05 68/25 11/23/17 14:00 87 23 62/25 55 Mechanical Ventilator 100 11/23/17 14:00 65/25 11/23/17 13:30 90 23 67/24 58 Mechanical Ventilator 100 11/23/17 13:26 95 26 100 11/23/17 13:00 94 24 73/25 66 Mechanical Ventilator 100 11/23/17 13:00 66/31 11/23/17 12:30 91 24 72/33 65 Mechanical Ventilator 100 11/23/17 12:08 93 11/23/17 12:00 99.0 92 23 70/26 63 Mechanical Ventilator 100 11/23/17 12:00 70/26 11/23/17 12:00 100 11/23/17 11:30 92 24 70/29 62 Mechanical Ventilator 100 11/23/17 11:06 95 29 100 11/23/17 11:00 93 25 69/25 63 Mechanical Ventilator 100 11/23/17 11:00 69/25 11/23/17 10:30 96 21 67/26 60 Mechanical Ventilator 100 11/23/17 10:00 11/23/17 10:00 95 21 64/27 60 Mechanical Ventilator 100 11/23/17 09:32 68/27 11/23/17 09:30 96 23 70/4 62 Mechanical Ventilator 100 11/23/17 09:00 98 23 64/27 58 Mechanical Ventilator 100 11/23/17 09:00 64/27 11/23/17 08:38 98 29 100 11/23/17 08:30 98 23 69/26 57 Mechanical Ventilator 100 11/23/17 08:00 98.3 99 22 57/22 57 Mechanical Ventilator 100 11/23/17 08:00 99 11/23/17 08:00 68/27 11/23/17 08:00 100 11/23/17 07:30 99 25 63/28 62 Mechanical Ventilator 100 11/23/17 07:23 98 28 100 11/23/17 07:00 77 23 57/22 62 Mechanical Ventilator 100 11/23/17 06:45 76 22 59/22 61 Mechanical Ventilator 100 11/23/17 06:30 70 22 53/19 61 Mechanical Ventilator 100 11/23/17 06:30 67 53/19 11/23/17 06:15 95 22 58/33 61 Mechanical Ventilator 100 11/23/17 06:00 61/24 11/23/17 06:00 94 22 61/24 61 Mechanical Ventilator 100 11/23/17 05:30 95 23 61/26 62 Mechanical Ventilator 100 11/23/17 05:26 96 28 100 11/23/17 05:00 61/25 11/23/17 05:00 96 23 61/25 58 Mechanical Ventilator 100 11/23/17 04:44 67/29 11/23/17 04:30 97 26 67/29 55 Mechanical Ventilator 100 11/23/17 04:00 100 11/23/17 04:00 98.6 93 25 65/27 47 Mechanical Ventilator 100 11/23/17 04:00 65/27 11/23/17 03:30 94 26 67/26 55 Mechanical Ventilator 100 11/23/17 03:28 98 38 100 11/23/17 03:24 82 11/23/17 03:00 70/28 11/23/17 03:00 94 25 71/28 55 Mechanical Ventilator 100 11/23/17 02:30 104 25 74/29 68 Mechanical Ventilator 100 11/23/17 02:11 40 11/23/17 02:00 102 32 68/33 89 Mechanical Ventilator 100 11/23/17 02:00 73/29 11/23/17 01:51 101 39 100 11/23/17 01:30 103 23 65/29 97 Mechanical Ventilator 100 11/23/17 01:00 105 28 64/28 95 Mechanical Ventilator 100 11/23/17 01:00 64/29 11/23/17 00:45 108 26 68/32 95 Mechanical Ventilator 100 11/23/17 00:30 101 26 74/32 53 Mechanical Ventilator 100 11/23/17 00:30 100 11/23/17 00:00 99.8 108 29 74/31 50 Mechanical Ventilator 100 11/23/17 00:00 76/36 11/22/17 23:54 59 28 100 11/22/17 23:30 107 27 76/36 52 Mechanical Ventilator 100 11/22/17 23:00 90 37 81/42 92 Mechanical Ventilator 100 11/22/17 23:00 81/42 Intake and Output 11/22/17 11/23/17 19:00 07:00 Intake Total 2066.37 ml 2174.75 ml Output Total 15 ml 5 ml Balance 2051.37 ml 2169.75 ml IV Total 2066.37 ml 2174.75 ml Output Urine Total 15 ml 5 ml # Bowel Movements 4 4 Laboratory Tests 11/23/17 05:10: White Blood Count 31.3*H, Red Blood Count 2.94L, Hemoglobin 7.7L, Hematocrit 25.1L, Mean Corpuscular Volume 85, Mean Corpuscular Hemoglobin 26.1L, Mean Corpuscular Hemoglobin Concent 30.5L, Red Cell Distribution Width 21.0H, Platelet Count 22L, Mean Platelet Volume 10.5H, Neutrophils (%) (Auto) , Lymphocytes (%) (Auto) , Monocytes (%) (Auto) , Eosinophils (%) (Auto) , Basophils (%) (Auto) , Differential Total Cells Counted 100, Neutrophils % ( Manual) 89H, Lymphocytes % (Manual) 8L, Monocytes % (Manual) 2, Eosinophils % ( Manual) 1, Basophils % (Manual) 0, Band Neutrophils 0, Nucleated Red Blood Cells 8, Platelet Estimate DecreasedL, Platelet Morphology Normal, Hypochromasia 3+, Anisocytosis 3+, Prothrombin Time 60.2H, Prothromb Time International Ratio 5.6*H, Sodium Level 139, Potassium Level 4.2, Chloride Level 102, Carbon Dioxide Level 15L, Anion Gap 22H, Blood Urea Nitrogen 56H, Creatinine 6.0H, Estimat Glomerular Filtration Rate 10.0, Glucose Level 24#*L, Calcium Level 6.5L, Total Bilirubin 4.4H, Direct Bilirubin 3.6H, Aspartate Amino Transf (AST/SGOT) 590H, Alanine Aminotransferase (ALT/SGPT) 85H, Alkaline Phosphatase 57, Total Protein 5.3L, Albumin 1.0L, Globulin 4.3, Albumin/ Globulin Ratio 0.2L Height (Feet): 5 Height (Inches): 5.00 Weight (Pounds): 214 General Appearance: no apparent distress EENT: normal ENT inspection Neck: normal alignment Cardiovascular: normal rate, regular rhythm Respiratory/Chest: decreased breath sounds Abdomen: normal bowel sounds, non tender, soft Cuate Rose Nov 23, 2017 22:51
--- NOTE | 2017-11-23 23:57 | Cardiology Progress Note ---
Assessment/Plan Assessment/Plan 1. Septic shock with multi-organ failure, grim prognosis. Continue pressors to keep MAP >65 mmHg. 2. Normal LV systolic function with LVEF at 60-65%. 3. Hypoxic hypercarbic respiratory failure, intubated. 4. Anuric ATN, ? HD in view of severe hypotension. 5. Acute encephalopathy 6. Thrombocytopenia with coagulopathy, ?DIC in view of hypofibrinogenemia. 7. Anemia/leukocytosis Subjective Subjective Sinus rhythm at 76. Intubated, non-responsive. Objective Last 24 Hour Vital Signs Date Time Temp Pulse Resp B/P (MAP) Pulse Ox O2 Delivery O2 Flow Rate FiO2 11/23/17 23:25 76 26 100 11/23/17 23:00 75 25 65/27 45 Mechanical Ventilator 100 11/23/17 22:30 80 23 71/22 31 Mechanical Ventilator 100 11/23/17 22:00 73 26 75/25 35 Mechanical Ventilator 100 11/23/17 21:30 76 24 73/26 48 Mechanical Ventilator 100 11/23/17 21:00 71/25 11/23/17 21:00 79 26 71/25 48 Mechanical Ventilator 100 11/23/17 20:37 80 21 100 11/23/17 20:30 83 26 74/22 56 Mechanical Ventilator 100 11/23/17 20:00 100 11/23/17 20:00 83 26 74/22 56 Mechanical Ventilator 100 11/23/17 20:00 /11/23/17 20:00 95.9 82 28 / 55 Mechanical Ventilator 100 11/23/17 20:00 82 11/23/17 19:30 84 22 72/25 63 Mechanical Ventilator 100 11/23/17 19:30 82 24 100 11/23/17 19:00 75/28 11/23/17 19:00 86 14 75/28 63 Mechanical Ventilator 100 11/23/17 18:30 82 24 74/29 57 Mechanical Ventilator 100 11/23/17 18:28 71/37 11/23/17 18:00 71/27 11/23/17 18:00 85 24 71/27 46 Mechanical Ventilator 100 11/23/17 17:30 83 25 69/24 42 Mechanical Ventilator 100 11/23/17 17:11 84 29 100 11/23/17 17:00 11/23/17 17:00 83 23 71/26 42 Mechanical Ventilator 100 11/23/17 16:30 85 24 71/26 44 Mechanical Ventilator 100 11/23/17 16:11 86 70/27 11/23/17 16:00 100 11/23/17 16:00 99.0 86 26 68/24 48 Mechanical Ventilator 100 11/23/17 16:00 70/27 11/23/17 15:37 84 11/23/17 15:30 85 25 69/25 48 Mechanical Ventilator 100 11/23/17 15:26 87 28 100 11/23/17 15:00 69/25 11/23/17 15:00 89 26 65/26 54 Mechanical Ventilator 100 11/23/17 14:30 89 26 66/31 54 Mechanical Ventilator 100 11/23/17 14:05 68/25 11/23/17 14:00 87 23 62/25 55 Mechanical Ventilator 100 11/23/17 14:00 65/25 11/23/17 13:30 90 23 67/24 58 Mechanical Ventilator 100 11/23/17 13:26 95 26 100 11/23/17 13:00 94 24 73/25 66 Mechanical Ventilator 100 11/23/17 13:00 66/31 11/23/17 12:30 91 24 72/33 65 Mechanical Ventilator 100 11/23/17 12:08 93 11/23/17 12:00 99.0 92 23 70/26 63 Mechanical Ventilator 100 11/23/17 12:00 70/26 11/23/17 12:00 100 11/23/17 11:30 92 24 70/29 62 Mechanical Ventilator 100 11/23/17 11:06 95 29 100 11/23/17 11:00 93 25 69/25 63 Mechanical Ventilator 100 11/23/17 11:00 69/25 11/23/17 10:30 96 21 67/26 60 Mechanical Ventilator 100 11/23/17 10:00 67/26 11/23/17 10:00 95 21 64/27 60 Mechanical Ventilator 100 11/23/17 09:32 68/27 11/23/17 09:30 96 23 70/4 62 Mechanical Ventilator 100 11/23/17 09:00 98 23 64/27 58 Mechanical Ventilator 100 11/23/17 09:00 64/27 11/23/17 08:38 98 29 100 11/23/17 08:30 98 23 69/26 57 Mechanical Ventilator 100 11/23/17 08:00 98.3 99 22 57/22 57 Mechanical Ventilator 100 11/23/17 08:00 99 11/23/17 08:00 68/27 11/23/17 08:00 100 11/23/17 07:30 99 25 63/28 62 Mechanical Ventilator 100 11/23/17 07:23 98 28 100 11/23/17 07:00 77 23 57/22 62 Mechanical Ventilator 100 11/23/17 06:45 76 22 59/22 61 Mechanical Ventilator 100 11/23/17 06:30 70 22 53/19 61 Mechanical Ventilator 100 11/23/17 06:30 67 53/19 11/23/17 06:15 95 22 58/33 61 Mechanical Ventilator 100 11/23/17 06:00 61/24 11/23/17 06:00 94 22 61/24 61 Mechanical Ventilator 100 11/23/17 05:30 95 23 61/26 62 Mechanical Ventilator 100 11/23/17 05:26 96 28 100 11/23/17 05:00 61/25 11/23/17 05:00 96 23 61/25 58 Mechanical Ventilator 100 11/23/17 04:44 67/29 11/23/17 04:30 97 26 67/29 55 Mechanical Ventilator 100 11/23/17 04:00 100 11/23/17 04:00 98.6 93 25 65/27 47 Mechanical Ventilator 100 11/23/17 04:00 65/27 11/23/17 03:30 94 26 67/26 55 Mechanical Ventilator 100 11/23/17 03:28 98 38 100 11/23/17 03:24 82 11/23/17 03:00 70/28 11/23/17 03:00 94 25 71/28 55 Mechanical Ventilator 100 11/23/17 02:30 104 25 74/29 68 Mechanical Ventilator 100 11/23/17 02:11 40 11/23/17 02:00 102 32 68/33 89 Mechanical Ventilator 100 11/23/17 02:00 73/29 11/23/17 01:51 101 39 100 11/23/17 01:30 103 23 65/29 97 Mechanical Ventilator 100 11/23/17 01:00 105 28 64/28 95 Mechanical Ventilator 100 11/23/17 01:00 64/29 11/23/17 00:45 108 26 68/32 95 Mechanical Ventilator 100 11/23/17 00:30 101 26 74/32 53 Mechanical Ventilator 100 11/23/17 00:30 100 11/23/17 00:00 99.8 108 29 74/31 50 Mechanical Ventilator 100 11/23/17 00:00 76/36 Intake and Output 11/22/17 11/23/17 19:00 07:00 Intake Total 2066.37 ml 2174.75 ml Output Total 15 ml 5 ml Balance 2051.37 ml 2169.75 ml IV Total 2066.37 ml 2174.75 ml Output Urine Total 15 ml 5 ml # Bowel Movements 4 4 2D Echo: LVEF 60-65%, RVSP 42 mmHg, Grade I LVDD, Mild LVH, Mod LAE Laboratory Tests Test 11/23/17 05:10 White Blood Count 31.3 K/UL (4.8-10.8) *H Red Blood Count 2.94 M/UL (4.70-6.10) L Hemoglobin 7.7 G/DL (14.2-18.0) L Hematocrit 25.1 % (42.0-52.0) L Mean Corpuscular Volume 85 FL (80-99) Mean Corpuscular Hemoglobin 26.1 PG (27.0-31.0) L Mean Corpuscular Hemoglobin Concent 30.5 G/DL (32.0-36.0) L Red Cell Distribution Width 21.0 % (11.6-14.8) H Platelet Count 22 K/UL (150-450) L Mean Platelet Volume 10.5 FL (6.5-10.1) H Neutrophils (%) (Auto) % (45.0-75.0) Lymphocytes (%) (Auto) % (20.0-45.0) Monocytes (%) (Auto) % (1.0-10.0) Eosinophils (%) (Auto) % (0.0-3.0) Basophils (%) (Auto) % (0.0-2.0) Differential Total Cells Counted 100 Neutrophils % (Manual) 89 % (45-75) H Lymphocytes % (Manual) 8 % (20-45) L Monocytes % (Manual) 2 % (1-10) Eosinophils % (Manual) 1 % (0-3) Basophils % (Manual) 0 % (0-2) Band Neutrophils 0 % (0-8) Nucleated Red Blood Cells 8 /100 WBC Platelet Estimate Decreased L Platelet Morphology Normal Hypochromasia 3+ Anisocytosis 3+ Prothrombin Time 60.2 SEC (9.30-11.50) H Prothromb Time International Ratio 5.6 (0.9-1.1) *H Sodium Level 139 MMOL/L (136-145) Potassium Level 4.2 MMOL/L (3.5-5.1) Chloride Level 102 MMOL/L (98-107) Carbon Dioxide Level 15 MMOL/L (21-32) L Anion Gap 22 mmol/L (5-15) H Blood Urea Nitrogen 56 mg/dL (7-18) H Creatinine 6.0 MG/DL (0.55-1.30) H Estimat Glomerular Filtration Rate 10.0 mL/min (>60) Glucose Level 24 MG/DL (74-106) #*L Calcium Level 6.5 MG/DL (8.5-10.1) L Total Bilirubin 4.4 MG/DL (0.2-1.0) H Direct Bilirubin 3.6 MG/DL (0.0-0.3) H Aspartate Amino Transf (AST/SGOT) 590 U/L (15-37) H Alanine Aminotransferase (ALT/SGPT) 85 U/L (12-78) H Alkaline Phosphatase 57 U/L (46-116) Total Protein 5.3 G/DL (6.4-8.2) L Albumin 1.0 G/DL (3.4-5.0) L Globulin 4.3 g/dL Albumin/Globulin Ratio 0.2 (1.0-2.7) L Microbiology Date/Time Source Procedure Growth Status 11/21/17 04:20 Stool Clostridium difficile Toxin Assay - Final Complete Objective GENERAL: Intubated with NG tube in place, unresponsive. HEENT: Atraumatic, normocephalic. Anicteric. Pupils are equal, round, and reactive to light and accommodation. Extraocular muscles intact. NECK: JVP cannot be assessed due to intubation. No carotid bruit. CARDIOVASCULAR SYSTEM: Normal S1, S2. Regular rate and rhythm. Tachycardic. No murmurs, gallops, or rubs. LUNGS: Diminished breath sounds especially in the left lung. ABDOMEN: Distended. No hepatosplenomegaly. Diminished breath sounds. EXTREMITIES: There is 1 to 2+ bilateral lower extremity edema. SHAUNA FORMAN Nov 23, 2017 23:57
[2017-11-24] VITALS: BP_SYST 72; BP_SYST 76; BP_DIAS 24; BP_DIAS 31
[2017-11-24 01:00] VITALS: BP 63/23
[2017-11-24 02:00] VITALS: BP 56/32
[2017-11-24] MEDS ORDERED: NS 275ml ONE (02:49)
[2017-11-24] MEDS ORDERED: 1/2 NS 1000ml IV ONE (02:49)
[2017-11-24] MEDS ORDERED: Tubing IV Secondary IV ONE ×2 (02:49)
[2017-11-24] MEDS ORDERED: NS 500ML ONE ×3 (02:49)
[2017-11-24] MEDS ORDERED: D5 1/2NS 1000ml IV ONE ×2 (02:49)
[2017-11-24] MEDS ORDERED: D5W 275ml ONE ×2 (02:49)
[2017-11-24] MEDS ORDERED: Sterile Water Irrig 1000ml IRRIG ONE (02:49)
[2017-11-24 03:06] VITALS: BP 0/0
[2017-11-24] MEDS: Hydrocortisone 100mg Inj IV SCH (03:10)
[2017-11-24] MEDS ORDERED: Haloperidol Lactate 2 MG in D5W 55 ML IVPB PRN (10:00)
--- NOTE | 2017-11-24 14:19 | Diagnostic Imaging Report ---
Indication: Dyspnea Technique: XRAY Chest 1v Comparison: 11/20/2017 Findings: Endotracheal tube tip is near the level of the clavicles and should be advanced 4 cm. Nasogastric tube is within the stomach. Cardiomediastinal silhouette is stable. There is worsening airspace disease of the bilateral lungs. Impression: Endotracheal tube tip near the clavicles and should be advanced 3 cm. Worsening bilateral airspace edema/infiltrates. Findings discussed with the patient's ICU nurse Jyoti.
[2017-11-26 08:21] LABS: APTT 1:1 MIX SALINE 121.5 sec (Not Estab.); APTT 1:1NP MIX 60M INCUBATION 29.8 sec (22.9-30.2); APTT 1:1NP MIX CONTROL 31.4 sec (22.9-30.2)
--- NOTE | 2017-11-27 11:07 | Discharge Summary ---
Discharge Summary Hospital Course Date of Admission Nov 18, 2017 at 19:20 Date of Discharge Nov 24, 2017 at 02:50 Admitting Diagnosis copd exacebration HPI Anuj Casey is a 52 year old male who was admitted on Nov 18, 2017 at 19:20 for Chronic Obstructive Pulmonary Disorder [facility] Hospital Course [id number] Discharge Discharge Disposition Patient Discharge Diagnoses: Rita Madden NP Nov 27, 2017 11:07
--- NOTE | 2017-11-28 01:00 | Discharge Summary 2 SIG ---
DATE OF ADMISSION: 11/18/2017 DATE OF DISCHARGE: 11/24/2017 BRIEF SUMMARY: The patient was a 52-year-old male with no past medical history, presented to ED for shortness of breath for three weeks. The patient was a poor historian and stated he had been having difficulty breathing and had abdominal pain. Denied asthma or COPD history. On evaluation at ED, the patient was in severe respiratory distress. He was initially placed on BiPAP. Blood work was notable for hemoglobin 4.7 and chest x-ray showed left-sided whiteout. Chest ultrasound showed loculated pleural effusion. He was unable to tolerate a CT scan as he was not able to lay flat due to shortness of breath. He continued to have worsening shortness of breath, and the patient was orally intubated. EKG showed T-wave inversion in lateral leads. Lactic acid was 16. Bilirubin was elevated. Post intubation, he was started on propofol drip. CT scan was able to be performed and findings showed infiltrates on the left greater than right lung with small bilateral pleural effusions. CT of the abdomen and pelvis with wall thickening in the colon with small to moderate amount of ascites. Negative intraperitoneal gas. There was nonspecific subcutaneous edema and fluid, left greater than right. He was then admitted to the ICU. He was given blood transfusion. He was placed on octreotide drip and was given vitamin K. INR was 2. He required multiple blood transfusions and was given Epogen. Creatinine was elevated to 2.4. BUN 26. He was pancultured and was initially started on cefepime and vancomycin. HIV and hepatitis panel were negative. Blood culture with Streptococcus pneumoniae. Creatinine continued to rise. The patient needed emergent hemodialysis. On 11/21/2017, a right femoral central venous dialysis catheter was inserted by Dr. Lemus. The patient was started on hemodialysis. Urine culture did not isolate any growth. AFB smear was negative. C. difficile was negative. He continued to be septic. WBC was rising into 30s. He was placed on max IV pressors, Levophed and phenylephrine. He continued to have poor prognosis. Code status DNR. He continued to decline. Neuro status was unresponsive/comatose. The patient eventually . FINAL DIAGNOSES: 1. Septic shock with multiorgan failure. 2. Acute hypoxic hypercarbic respiratory failure. 3. Acute renal failure with acute tubular necrosis. 4. Thrombocytopenia. 5. Severe anemia requiring blood transfusion. 6. Anemia secondary to chronic disease. 7. 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 8. Lactic acidosis. 9. Streptococcus pneumoniae bacteremia. 10. Possible urinary tract infection. 11. Elevated troponin. 12. Acute toxic metabolic encephalopathy. 13. Acute renal failure requiring hemodialysis. 14. Hypoglycemia. 15. Hepatorenal syndrome. 16. Mild pulmonary hypertension. Nehemiah Lemus D.O. I have been assigned to dictate discharge summary on this account and I was not involved in the patient's management. Rita Madden N.P. DR: RJ JOB#: [id number] CC: TINO
--- NOTE | 2017-11-28 16:18 | Cardiology Report ---
APPROVED REPORT EKG Measurement Heart [id number] Sinus tachycardia T wave abnormality, consider lateral ischemia Abnormal ECG
--- NOTE | 2017-11-30 11:04 | Cardiology Report ---
APPROVED REPORT EXAM: Two-dimensional and M-mode echocardiogram with Doppler and color Doppler. INDICATION Left ventricular function M-Mode DIMENSIONS IVSd1.2 (0.7-1.1cm)Left Atrium (MM)5.2 (1.6-4.0cm) LVDd6.0 (3.5-5.6cm)Aortic Root3.2 (2.0-3.7cm) PWd1.1 (0.7-1.1cm)Aortic Cusp Exc.1.8 (1.5-2.0cm) LVDs3.6 (2.5-4.0cm) PWs1.8 cm Normal left ventricular chamber size, systolic function and wall motion. Left ventricular ejection fraction estimated to be 60-65%. Mild left ventricular hypertrophy. No evidence of pericardial or pleural effusion. Right cardiac chamber sizes are within normal limits. Moderate left atrial enlargement by 2D. Focal aortic valve sclerosis with adequate cusp excursion. Normal mitral valve leaflets with normal excursion. Mild mitral annulus and aortic root calcification. Pulmonic valve is well visualized. Normal tricuspid valve structure. IVC is normal in size non-collapsible with respiration indicate increased RA pressure. A color flow and spectral Doppler study was performed and revealed: No aortic regurgitation. No mitral regurgitation. Mitral diastolic velocities suggest reduced left ventricular relaxation c/w diastolic dysfunction grade 1. Mild tricuspid regurgitation. Tricuspid systolic velocities suggests peak right ventricular systolic pressure of 42mmHg Consistent with mild pulmonary hypertension. Pulmonic regurgitation present.
== END 2017-11-24 02:50 | disposition expired | DRG 870 ==
LOC: EMR 17:00 → EDBEDREQ 19:04 → EDBEDREQSVC 19:04 → EDBD 19:20 → ICU 19:20 → EDBEDREQ 19:29 → ICU 11-19 20:01
PROC: 0BH17EZ Insertion of Endotracheal Airway into Trachea, Via Natural or Artificial Opening (ICD-10-PCS; principal; 2017-11-18)
PROC: 5A1955Z Respiratory Ventilation, Greater than 96 Consecutive Hours (ICD-10-PCS; principal; 2017-11-18)
PROC: 5A1D70Z Performance of Urinary Filtration, Intermittent, Less than 6 Hours Per Day (ICD-10-PCS; 2017-11-21)
PROC: 06HM33Z Insertion of Infusion Device into Right Femoral Vein, Percutaneous Approach (ICD-10-PCS; 2017-11-21)
DX: A40.3 Sepsis due to Streptococcus pneumoniae (principal); N17.0 Acute kidney failure with tubular necrosis; K76.7 Hepatorenal syndrome; R65.21 Severe sepsis with septic shock; J90 Pleural effusion, not elsewhere classified; J18.9 Pneumonia, unspecified organism; J96.02 Acute respiratory failure with hypercapnia; J96.01 Acute respiratory failure with hypoxia; G93.41 Metabolic encephalopathy; N39.0 Urinary tract infection, site not specified; E87.2 Acidosis; D68.9 Coagulation defect, unspecified; D64.9 Anemia, unspecified; E88.09 Other disorders of plasma-protein metabolism, not elsewhere classified; K74.60 Unspecified cirrhosis of liver; D69.6 Thrombocytopenia, unspecified; E16.2 Hypoglycemia, unspecified; I27.20 Pulmonary hypertension, unspecified
CPT/HCPCS: 31500; 36415; 36600; 71045; 71250; 74018; 74176; 80053; 80061; 80150; 80202; 81003; 82140; 82248; 82270; 82378; 82533; 82550; 82553; 82607; 82728; 82746; 82803; 82962; 82977; 83036; 83540; 83550; 83605; 83615; 83735; 83880; 84100; 84165; 84443; 84478; 84484; 84550; 85007; 85025; 85044; 85384; 85610; 85651; 85730; 86140; 86703; 86705; 86709; 86803; 86850; 86880; 86900; 86901; 86920; 87040; 87081; 87086; 87116; 87181; 87324; 87340; 87517; 93005; 93306; 93970; 94002; 94003; 94640; 94660; J2370; J2405; J3430; J7620